=== PATIENT | male | born 1950 | race Caucasian/White ===

== ENCOUNTER 2018-07-30 16:38 | Outpatient (CLI) | payer MEDICARE, OTHER, SELFPAY | END 2018-07-30 16:58 | PROVIDERS: PCP Family Medicine; Visit Provider Urology | DX: R97.20 Elevated prostate specific antigen [PSA] (principal) | CPT/HCPCS: 36415; 84153 ==

== ENCOUNTER → 2018-09-04 10:42 | Outpatient (BNVA) | payer MEDICARE, OTHER, SELFPAY | PROVIDERS: PCP Family Medicine; Visit Provider Urology | DX: R35.0 Frequency of micturition (principal); R97.20 Elevated prostate specific antigen [PSA]; Z87.442 Personal history of urinary calculi | CPT/HCPCS: 99213 ==

== ENCOUNTER → 2018-12-28 07:53 | Outpatient (BNVA) | payer MEDICARE, OTHER, SELFPAY | PROVIDERS: PCP Family Medicine; Visit Provider Urology | DX: R31.29 Other microscopic hematuria (principal); R35.0 Frequency of micturition; Z87.442 Personal history of urinary calculi | CPT/HCPCS: 51798; 81001; 99213 ==

== ENCOUNTER 2019-01-15 13:43 | Outpatient (CLI) | payer MEDICARE, OTHER, SELFPAY ==
[2019-01-15 14:57] LABS: Albumin 3.9 g/dL (3.4-5.0); Anion Gap 9.8 mmol/L (3-11); BUN 18 mg/dL (7-18); CO2 28.2 mmol/L (21.0-32.0); CREATININE 1.05 mg/dL (0.70-1.30); Calcium 9.3 mg/dL (8.5-10.1); Calculated LDL 124 mg/dL; Chloride 104 mmol/L (98-107); Cholesterol 201 mg/dL (50-200); Glucose 107 mg/dL (70-100); HDL Cholesterol 41 mg/dL (40-60); Potassium 4.3 mmol/L (3.5-5.1); Sodium 142 mmol/L (136-145); Triglyceride 183 mg/dL (30-150)
[2019-01-15 17:03] LABS: PHOSPHORUS 3.8 mg/dL (2.6-4.7)
== END 2019-01-15 14:03 ==
PROVIDERS: PCP Family Medicine; Visit Provider Family Medicine
DX: N20.0 Calculus of kidney; E78.5 Hyperlipidemia, unspecified
CPT/HCPCS: 80061; 80069; 83721

== ENCOUNTER 2019-01-21 00:24 | Outpatient (CLI) | payer MEDICARE, OTHER, SELFPAY ==
--- NOTE | 2019-01-21 08:24 | DI.CT_ITS ---
SYMPTOM/DIAGNOSIS; R/O STONES R31.29 HEMATURIA, Z87.442 HX URINARY CALCULI ABDOMINAL AND PELVIC CT: 01/21 CT Urogram protocol January 21 CT examination of the abdomen and pelvis was performed utilizing CT urogram protocol. Noncontrast imaging shows multiple nonobstructing renal calculi, the largest lying in the left collecting system measuring about 9 mm in diameter. There is no hydronephrosis. There is no ureterolithiasis. Venous phase and 7-minute delayed phase imaging were performed and show multiple bilateral non-enhancing low attenuation renal lesions consistent with cysts. Otherwise liver parenchyma is unremarkable. Urinary bladder wall is thickened consistent with chronic bladder outlet obstruction and there is a very large irregularly lobulated prostate. There is marked deformity of the bladder floor from prostate enlargement. Superimposed intraluminal mass not excluded. Liver, spleen and pancreas are unremarkable. Gallbladder and bile ducts are CT normal. Adrenals appear normal. Abdominal aorta and major vascular branches appear intact except for some mural thrombus of the aorta. No abdominal aortic aneurysm. No focal bowel pathology. No evidence of appendicitis or diverticulitis. No abdominal or pelvic adenopathy. No significant abdominal wall hernia seen. CONCLUSION: 1. Multiple nonobstructing renal calculi 2. Multiple renal cysts 3. Marked irregular lobulated prostate enlargement. 4. Bladder wall thickening, presumably secondary to chronic bladder outlet obstruction, intraluminal mass not excluded.
[2019-01-21] MEDS: Omnipaque 350 MG/ML 100 ML BTL IJ (09:09)
== END 2019-01-21 00:44 ==
PROVIDERS: PCP Family Medicine; Visit Provider Urology
DX: R31.29 Other microscopic hematuria (principal); Z87.442 Personal history of urinary calculi; N20.0 Calculus of kidney; N28.1 Cyst of kidney, acquired; N40.1 Benign prostatic hyperplasia with lower urinary tract symptoms; N32.0 Bladder-neck obstruction
CPT/HCPCS: 74178; J3490

== ENCOUNTER → 2019-02-01 13:54 | Outpatient (BNVA) | payer MEDICARE, OTHER, SELFPAY | PROVIDERS: PCP Family Medicine; Visit Provider Urology | DX: N40.1 Benign prostatic hyperplasia with lower urinary tract symptoms (principal); N20.0 Calculus of kidney; R35.1 Nocturia; R19.4 Change in bowel habit | CPT/HCPCS: 99213 ==

== ENCOUNTER → 2019-02-26 11:24 | Outpatient (BNVA) | payer MEDICARE, OTHER, SELFPAY | PROVIDERS: PCP Family Medicine; Visit Provider Urology | DX: N30.10 Interstitial cystitis (chronic) without hematuria (principal); N40.0 Benign prostatic hyperplasia without lower urinary tract symptoms | CPT/HCPCS: 99213 ==

== ENCOUNTER → 2019-04-12 11:18 | Outpatient (BNVA) | payer MEDICARE, OTHER, SELFPAY | PROVIDERS: PCP Family Medicine; Referring Provider Family Medicine; Visit Provider Urology | DX: N40.1 Benign prostatic hyperplasia with lower urinary tract symptoms (principal); N13.8 Other obstructive and reflux uropathy; N30.10 Interstitial cystitis (chronic) without hematuria | CPT/HCPCS: 99213 ==

== ENCOUNTER → 2019-05-08 14:20 | Outpatient (BNVA) | payer MEDICARE, OTHER, SELFPAY | PROVIDERS: PCP Family Medicine; Referring Provider Family Medicine; Visit Provider Nurse Practitioner Gerontology | DX: N40.1 Benign prostatic hyperplasia with lower urinary tract symptoms (principal); N13.8 Other obstructive and reflux uropathy | CPT/HCPCS: 51798; 99213 ==

== ENCOUNTER → 2019-05-10 13:38 | Outpatient (BNVA) | payer MEDICARE, OTHER, SELFPAY | PROVIDERS: PCP Family Medicine; Referring Provider Family Medicine; Visit Provider Urology | DX: N40.1 Benign prostatic hyperplasia with lower urinary tract symptoms (principal) | CPT/HCPCS: 99212 ==

== ENCOUNTER → 2019-06-07 13:49 | Outpatient (BNVA) | payer MEDICARE, OTHER, SELFPAY | PROVIDERS: PCP Family Medicine; Referring Provider Family Medicine; Visit Provider Urology | DX: N30.10 Interstitial cystitis (chronic) without hematuria (principal) | CPT/HCPCS: 99213 ==

== ENCOUNTER → 2019-07-26 10:49 | Outpatient (BNVA) | payer MEDICARE, OTHER, SELFPAY | PROVIDERS: PCP Family Medicine; Referring Provider Family Medicine; Visit Provider Urology | DX: N40.1 Benign prostatic hyperplasia with lower urinary tract symptoms (principal); N13.8 Other obstructive and reflux uropathy; N30.10 Interstitial cystitis (chronic) without hematuria; Z87.19 Personal history of other diseases of the digestive system | CPT/HCPCS: 99213 ==

== ENCOUNTER 2019-08-21 14:37 | Outpatient (CLI) | payer MEDICARE, OTHER, SELFPAY ==
[2019-08-22 14:33] LABS: PSA, Diagnostic 5.3 ng/mL (0.0-4.5)
== END 2019-08-21 14:57 ==
PROVIDERS: PCP Family Medicine; Visit Provider Urology
DX: R97.20 Elevated prostate specific antigen [PSA] (principal)
CPT/HCPCS: 36415; 84153

== ENCOUNTER → 2019-09-03 10:21 | Outpatient (BNVA) | payer MEDICARE, OTHER, SELFPAY | PROVIDERS: PCP Family Medicine; Referring Provider Family Medicine; Visit Provider Urology | DX: N40.1 Benign prostatic hyperplasia with lower urinary tract symptoms (principal); N13.8 Other obstructive and reflux uropathy; Z87.442 Personal history of urinary calculi; K58.1 Irritable bowel syndrome with constipation; R97.20 Elevated prostate specific antigen [PSA] | CPT/HCPCS: 99214 ==

== ENCOUNTER 2019-09-16 09:34 | Outpatient (CLI) | payer MEDICARE, OTHER, SELFPAY ==
--- NOTE | 2019-09-16 09:50 | DI.CT_ITS ---
EXAM: CT ABDOMEN PELVIS WO CLINICAL HISTORY: known stones, right abdominal/flank pain, Z87.442,H/O URINARY CALCULI TECHNIQUE: Noncontrast COMPARISON: CT ABDOMEN PELVIS WO/W from 01/21/2019 FINDINGS: Again noted are multiple calcifications within the renal parenchyma and areas of low density within the kidneys consistent with cysts as was better demonstrated on the previous post-contrast study. A s tone at the lower pole of the left kidney measures 7 millimeters in greatest dimension. No ureteral or bladder calculi are seen. The prostate is again noted to be markedly enlarged, measuring 6 x 5.4 by 6.6 cm. It impresses upon the base of the bladder. There is mild bladder wall thickening. Lung bases are clear. The liver, gallbladder, spleen, pancreas and adrenals are unremarkable. No letty l abnormalities are seen. Degenerative changes are seen in the spine, greatest at L4-5. IMPRESSION: Nonobstructing bilateral renal calculi. Enlarged prostate and mild bladder wall thickening.
== END 2019-09-16 09:54 ==
PROVIDERS: PCP Family Medicine; Visit Provider Urology
DX: R10.31 Right lower quadrant pain (principal); N20.0 Calculus of kidney; N40.1 Benign prostatic hyperplasia with lower urinary tract symptoms; N32.89 Other specified disorders of bladder; N28.1 Cyst of kidney, acquired
CPT/HCPCS: 74176

== ENCOUNTER → 2019-10-29 11:25 | Outpatient (BNVA) | payer MEDICARE, OTHER, SELFPAY | PROVIDERS: PCP Family Medicine; Referring Provider Family Medicine; Visit Provider Urology | DX: N40.1 Benign prostatic hyperplasia with lower urinary tract symptoms (principal); N13.8 Other obstructive and reflux uropathy | CPT/HCPCS: 99213; 99443 ==

== ENCOUNTER → 2020-01-13 15:03 | Outpatient (BNVA) | payer MEDICARE, OTHER, SELFPAY | PROVIDERS: PCP Family Medicine; Referring Provider Family Medicine; Visit Provider Urology | DX: N40.1 Benign prostatic hyperplasia with lower urinary tract symptoms (principal); N13.8 Other obstructive and reflux uropathy | CPT/HCPCS: 99213; 99442 ==

== ENCOUNTER 2020-01-23 01:43 | Outpatient (CLI) | payer MEDICARE, OTHER, SELFPAY ==
[2020-01-23 12:01] LABS: Calculated LDL 151 mg/dL (<100); Cholesterol 221 mg/dL (<200); Glucose 91 mg/dL (74-106); HDL Cholesterol 42 mg/dL (40-60); Triglyceride 143 mg/dL (<150)
== END 2020-01-23 02:03 ==
PROVIDERS: PCP Family Medicine; Visit Provider Family Medicine
DX: E78.5 Hyperlipidemia, unspecified (principal); R73.9 Hyperglycemia, unspecified
CPT/HCPCS: 36415; 80061; 82947

== ENCOUNTER → 2020-02-21 10:10 | Outpatient (BNVA) | payer MEDICARE, OTHER, SELFPAY | PROVIDERS: PCP Family Medicine; Referring Provider Family Medicine; Visit Provider Urology | DX: N40.1 Benign prostatic hyperplasia with lower urinary tract symptoms (principal); N13.8 Other obstructive and reflux uropathy | CPT/HCPCS: 99213; 99442 ==

== ENCOUNTER → 2020-03-27 11:27 | Outpatient (BNVA) | payer MEDICARE, OTHER, SELFPAY | PROVIDERS: PCP Family Medicine; Referring Provider Family Medicine; Visit Provider Urology | DX: N40.1 Benign prostatic hyperplasia with lower urinary tract symptoms (principal); R35.0 Frequency of micturition; R39.11 Hesitancy of micturition; R07.89 Other chest pain; N13.8 Other obstructive and reflux uropathy | CPT/HCPCS: 99212; 99442 ==

== ENCOUNTER → 2020-04-28 10:05 | Outpatient (BNVA) | payer MEDICARE, OTHER, SELFPAY | PROVIDERS: PCP Family Medicine; Referring Provider Family Medicine; Visit Provider Urology | DX: M54.89 Other dorsalgia (principal); N40.1 Benign prostatic hyperplasia with lower urinary tract symptoms; N13.8 Other obstructive and reflux uropathy; R10.10 Upper abdominal pain, unspecified; R07.89 Other chest pain | CPT/HCPCS: 99213; 99443 ==

== ENCOUNTER → 2020-05-22 11:29 | Outpatient (BNVA) | payer MEDICARE, OTHER, SELFPAY | PROVIDERS: PCP Family Medicine; Referring Provider Family Medicine; Visit Provider Urology | DX: N40.1 Benign prostatic hyperplasia with lower urinary tract symptoms (principal); N13.8 Other obstructive and reflux uropathy | CPT/HCPCS: 99214; 99443 ==

== ENCOUNTER → 2020-06-18 13:04 | Outpatient (BNVA) | payer MEDICARE, OTHER, SELFPAY | PROVIDERS: PCP Family Medicine; Referring Provider Family Medicine; Visit Provider Urology | DX: R69 Illness, unspecified (principal) ==

== ENCOUNTER → 2020-06-23 09:32 | Outpatient (BNVA) | payer MEDICARE, OTHER, SELFPAY | PROVIDERS: PCP Family Medicine; Referring Provider Family Medicine; Visit Provider Urology | DX: N40.1 Benign prostatic hyperplasia with lower urinary tract symptoms (principal); N13.8 Other obstructive and reflux uropathy; N30.10 Interstitial cystitis (chronic) without hematuria | CPT/HCPCS: 99213; 99442 ==

== ENCOUNTER → 2020-07-14 15:21 | Outpatient (BNVA) | payer MEDICARE, OTHER, SELFPAY | PROVIDERS: PCP Family Medicine; Referring Provider Family Medicine; Visit Provider Urology | DX: N40.1 Benign prostatic hyperplasia with lower urinary tract symptoms (principal); N13.8 Other obstructive and reflux uropathy; N30.10 Interstitial cystitis (chronic) without hematuria | CPT/HCPCS: 99213; 99442 ==

== ENCOUNTER → 2020-08-18 13:33 | Outpatient (BNVA) | payer MEDICARE, OTHER, SELFPAY | PROVIDERS: PCP Family Medicine; Referring Provider Family Medicine; Visit Provider Urology | DX: N40.1 Benign prostatic hyperplasia with lower urinary tract symptoms (principal); N13.8 Other obstructive and reflux uropathy; N30.10 Interstitial cystitis (chronic) without hematuria | CPT/HCPCS: 99213; 99443 ==

== ENCOUNTER → 2020-09-15 09:38 | Outpatient (BNVA) | payer MEDICARE, OTHER, SELFPAY | PROVIDERS: PCP Family Medicine; Referring Provider Family Medicine; Visit Provider Urology | DX: N40.1 Benign prostatic hyperplasia with lower urinary tract symptoms (principal); N13.8 Other obstructive and reflux uropathy; N30.10 Interstitial cystitis (chronic) without hematuria | CPT/HCPCS: 99213; 99443 ==

== ENCOUNTER → 2020-10-06 08:37 | Outpatient (BNVA) | payer MEDICARE, OTHER, SELFPAY | PROVIDERS: PCP Family Medicine; Referring Provider Family Medicine; Visit Provider Urology | DX: N30.10 Interstitial cystitis (chronic) without hematuria (principal); N40.1 Benign prostatic hyperplasia with lower urinary tract symptoms; N13.8 Other obstructive and reflux uropathy | CPT/HCPCS: 99213; 99443 ==

== ENCOUNTER 2020-11-16 02:35 | Outpatient (CLI) | payer MEDICARE, OTHER, SELFPAY ==
[2020-11-16 11:24] LABS: CREATININE 1.1 mg/dL (0.70-1.30); Calculated LDL 132 mg/dL (<100); Cholesterol 196 mg/dL (<200); HDL Cholesterol 39 mg/dL (40-60); Triglyceride 127 mg/dL (<150)
== END 2020-11-16 02:36 | disposition home or self-care (01) ==
LOC: LBO 02:35
PROVIDERS: PCP Family Medicine; Visit Provider Urology
DX: I10 Essential (primary) hypertension (principal); E78.5 Hyperlipidemia, unspecified; R97.20 Elevated prostate specific antigen [PSA]
CPT/HCPCS: 36415; 80061; 82565; 84153

== ENCOUNTER → 2020-11-27 14:19 | Outpatient (BNVA) | payer MEDICARE, OTHER, SELFPAY | PROVIDERS: PCP Family Medicine; Referring Provider Family Medicine; Visit Provider Urology | DX: N40.1 Benign prostatic hyperplasia with lower urinary tract symptoms (principal); N13.8 Other obstructive and reflux uropathy; R31.29 Other microscopic hematuria; R97.20 Elevated prostate specific antigen [PSA]; J30.2 Other seasonal allergic rhinitis; K90.49 Malabsorption due to intolerance, not elsewhere classified; Z87.442 Personal history of urinary calculi | CPT/HCPCS: 99214; 99215 ==

== ENCOUNTER → 2020-12-03 09:51 | Outpatient (BNVA) | payer MEDICARE, OTHER, SELFPAY | PROVIDERS: PCP Family Medicine; Referring Provider Family Medicine; Visit Provider Nurse Practitioner Gerontology | DX: R31.29 Other microscopic hematuria (principal); N40.1 Benign prostatic hyperplasia with lower urinary tract symptoms; N13.8 Other obstructive and reflux uropathy | CPT/HCPCS: 81003; 99213 ==

== ENCOUNTER → 2020-12-25 11:24 | Outpatient (BNVA) | payer MEDICARE, OTHER, SELFPAY | PROVIDERS: PCP Family Medicine; Referring Provider Family Medicine; Visit Provider Urology | DX: N40.1 Benign prostatic hyperplasia with lower urinary tract symptoms (principal); N13.8 Other obstructive and reflux uropathy; R97.20 Elevated prostate specific antigen [PSA]; R31.29 Other microscopic hematuria | CPT/HCPCS: 99213; 99214 ==

== ENCOUNTER 2021-02-05 02:56 | Outpatient (CLI) | payer MEDICARE, SELFPAY ==
[2021-02-05 10:53] LABS: Source Nasal/Nares
[2021-02-05 15:04] LABS: COVID-19 PCR Negative (Negative)
== END 2021-02-05 02:57 | disposition home or self-care (01) ==
PROVIDERS: PCP Family Medicine; Visit Provider Urology
DX: Z20.822 Contact with and (suspected) exposure to COVID-19 (principal); Z01.818 Encounter for other preprocedural examination; R31.29 Other microscopic hematuria
CPT/HCPCS: 87635; 99212; 99442

== ENCOUNTER 2021-02-08 06:15 | Day surgery (SDC) | payer MEDICARE, SELFPAY ==
[2021-02-08 06:36] VITALS: BP 117/83; PULSE 80; RESP 18; TEMP 36.2; O2SAT 96
--- NOTE | 2021-02-08 06:52 | HPE_ITS ---
Date of service: 02/08/21 Time of Service: 06:52 Assessment and Plan Assessment and plan (1) BPH w urinary obs/LUTS: Status: Acute (2) History of kidney stones: Status: Acute (3) Microscopic hematuria: Status: Acute Assessment and plan: We will move ahead with a cystoscopy and right retrograde pyelogram. We will not plan any prostate or ureteral intervention at this time, but if a small bladder lesion is identified, we can address it at this time. History of Present Illness History of Present Illness Chief Complaint: BPH with LUTS Narrative: This is a 70 year old man who has a history of interstitial cystitis, kidney stones and LUTS. He has had microscopic hematuria on urine dipstick but no persistent hematuria on microscopic examination. He is considering different prostate treatments and presents for cystoscopy. He has a history of kidney stones and has had right sided pain at times. His last CT from @ 1 year ago showed nonobstructing kidney stones. He is agreeable to a retrograde pyelogram to rule out migration of the one of renal stones into the ureter. Review of Systems Narrative: No fevers or chills Sinus drainage and odd sensation left ear No diabetes or thyroid No shortness of breath, cough or hemoptysis No chest pain or palpitations No hepatitis, ulcers, jaundice No seizures, strokes or peripheral neuropathy No bleeding disorders or anemia No gout PFSH Medical History Anxiety disorder contributing to his symptoms BPH w urinary obs/LUTS Constipation Microscopic hematuria Seasonal allergies Family History Mother , 78 Alzheimer disease Depression Hyperlipidemia Neoplasm Stroke Father , 77 Depression Heart disease Stroke Social History (Updated 01/25/21 @ 15:07 by Vicki Martin) Smoking/Tobacco Use Status: Former Tobacco Use Quit Date: 07/17/79 Smoking risk assessment performed?: Yes Alcohol Intake: former Drug use: Never Substance use type: does not use Details: 18 years sobriety Caregiver/Support person: No Household members: none Housing: house Communication Needs: None Do you need help understanding health information?: Often Pets and animals: Yes Pets and animals: cat(s) Sexually active: No Do you think of yourself as: straight/heterosexual Current gender identity: male What is your relationship status?: never How often do you talk on the phone with friends or family?: once per week Do you belong to any clubs or organized social groups?: no Panel score (0-1 are the most socially isolated patients): 0 What type of physical activity do you participate in: walking Duration: 15-30 minutes/day Frequency: 1-2 times per week [employer]: [employer] Seatbelt use: always 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 Do you feel safe at home: Yes Do you feel safe in your relationship?: Yes Meds Allergies and Home Medications Allergies Allergy/AdvReac Type Severity Reaction Status Date / Time tamsulosin AdvReac Intermediate low blood Verified 02/08/21 06:22 pressure trazodone AdvReac Intermediate Aggitation, Verified 02/08/21 06:22 Headache Home Medications Medication Instructions Recorded Confirmed Type polyethylene glycol 3350 17 17 gm PO DAILY PRN 11/20/20 02/08/21 History gram/dose oral powder finasteride 5 mg tablet 5 mg PO DAILY #90 tab 12/25/20 02/08/21 Rx Exam Const General: cooperative, comfortable and anxious Neck Neck: supple Resp Effort & Inspection: normal respiratory effort Auscultation: clear to auscultation bilaterally Cardio Rate: regular rate Rhythm: regular rhythm GI Palpation: soft and no masses Neuro General: patient alert, patient awake and patient oriented x3 Results Last Vital Signs Temp 36.2 C L 02/08/21 06:36 Pulse 80 02/08/21 06:36 Resp 18 02/08/21 06:36 BP 117/83 02/08/21 06:36 Pulse Ox 96 02/08/21 06:36
--- NOTE | 2021-02-08 06:59 | W.ANESPRE ---
General Info Date of Service Date Performed: 02/08/21 Height: 5 ft 7 in Weight: 67.8 kg Body Mass Index (BMI): 23.3 Surgical Procedure: Operation Date: 02/08/21 07:40 Proposed Procedures Side Surgeon p CYSTO, POSSIBLE TURBT Farooq Gonzales MD s Cystoscopy/Retrograde Right Farooq Gonzales MD Meds Allergies and Home Medications Allergies Allergy/AdvReac Type Severity Reaction Status Date / Time tamsulosin AdvReac Intermediate low blood Verified 02/08/21 06:22 pressure trazodone AdvReac Intermediate Aggitation, Verified 02/08/21 06:22 Headache Home Medication Medication Instructions Recorded polyethylene glycol 3350 17 17 gm PO DAILY PRN 11/20/20 gram/dose oral powder finasteride 5 mg tablet 5 mg PO DAILY #90 tab 12/25/20 Current Visit Medications: Current Medications Generic Name Dose Route Start Last Admin Trade Name Freq PRN Reason Stop Dose Admin Ringer's Solution 1,000 mls @ 80 mls/hr 02/08/21 06:00 IV 03/07/21 23:59 INFUSION JERRY Cefazolin Sodium/Dextrose 1 gm in 50 mls @ 100 mls/hr 02/08/21 06:00 Ancef Duplex IVPB 02/08/21 16:00 PREOP JERRY IV Miscellaneous Supplies 1 each 02/08/21 06:00 Iv Access IV 03/07/21 23:59 DIRECTED JERRY Sodium Chloride 0 ml 02/08/21 06:00 Normal Saline Flush 10 Ml Syr IV 03/07/21 23:59 PRN PRN Sodium Chloride 0 ml 02/08/21 06:00 Normal Saline 10 Ml Vial IJ 03/07/21 23:59 DIRECTED PRN Sterile Water 0 ml 02/08/21 06:00 Water,Injection,Sterile 10 Ml Vial IJ 03/07/21 23:59 DIRECTED PRN PFSH Active Problems Active Problems: Problem Status Onset Code Post-nasal drip R09.82 Chronic rhinitis J31.0 Seasonal allergies J30.2 Microscopic hematuria R31.29 Food intolerance in adult K90.49 Constipation K59.00 Chest pain R07.9 BPH w urinary obs/LUTS N40.1, N13.8 Interscapular pain M54.89 Anxiety disorder F41.9 Paranoid ideation 06/02/16 F22 Irritable colon K58.9 Irritable bowel syndrome with constipation K58.1 Insomnia, unspecified 05/19/16 G47.00 History of tobacco use Z87.891 History of simple renal cyst 12/25/15 Z87.448 History of kidney stones 12/25/15 Z87.442 History of alcoholism F10.21 Fatigue R53.83 Esophageal reflux K21.9 Elevated PSA 07/26/16 R97.20 Depression F32.9 Chronic interstitial cystitis 12/25/15 N30.10 Chronic ankle pain, bilateral 01/06/17 M25.571, M25.572, G89.29 BPH without urinary obstruction N40.0 Anxiety associated with depression 05/12/16 F41.8 Abdominal discomfort, generalized 11/24/15 R10.84 Medical History Medical History Anxiety disorder contributing to his symptoms BPH w urinary obs/LUTS Constipation Microscopic hematuria Seasonal allergies Tobacco Smoking/Tobacco Use Status: Former Tobacco Use Passive smoking exposure: Yes Alcohol Alcohol Intake: former Substance Use Substance use: Never Substance use type: does not use Details: 18 years sobriety Vital Signs and Lab Results Vital Signs Most Recent Vital Signs in EMR: Most Recent Vital Signs Temp Pulse Resp BP Pulse Ox 36.2 C L 80 18 117/83 96 02/08/21 06:36 02/08/21 06:36 02/08/21 06:36 02/08/21 06:36 02/08/21 06:36 Lab Results Blood Type / Crossmatch: No Data to Display Complete Blood Count: No Data to Display Complete Metabolic Panel: No Data to Display Liver Function Panel: No Data to Display Coagulation Panel: No Data to Display Cardiac Panel: No Data to Display Arterial Blood Gas: No Data to Display Venous Blood Gas: No Data to Display Pancreas Panel: No Data to Display Thyroid Panel: No Data to Display Infectious Disease: Coronavirus (COVID-19)(PCR) Negative (Negative) 02/05/21 08:30 02/05/21 Coronavirus 2019 Source Nasal/Nares 02/05/21 08:30 02/05/21 Blood Cultures: No Data to Display Toxicology Panel: No Data to Display Anesthesia Assessment and Plan Anesthesia History Personal History: No History of Anesthesia Complications Family History: No Family History of Anesthesia Complications Exercise Tolerance Exercise Tolerance: Metabolic Equivalents>4 Cardiac & Pulmonary Exam Cardiac Exam: Normal S1/S2 Heart Sounds Pulmonary Exam: Clear Bilateral Breath Sounds Airway Exam Known Difficult Airway: No Mallampati Class: 3 Mouth Opening: Narrow (< 3cm) Thyromental Distance: Greater than 3 cm Neck Range of Motion: Limited ROM Neck Circumference: Normal Teeth Condition: Normal Dentition ASA Classification ASA Score: ASA 2 Emergency Case?: No NPO Status NPO Status: NPO Clears >2 hours, Solids >8 hours Anesthesia Plan Resuscitation Status: Full Code Anesthesia Technique: MAC Anesthesia Airway Planned: Natural Airway Monitors Used: Standard Monitors
[2021-02-08] MEDS: Lactated Ringers 1,000 ML 80 ML IV (07:00)
[2021-02-08 07:12] VITALS: BMI 23.3
[2021-02-08] MEDS: ceFAZolin 1 GM/50 ML BAG IVPB (07:37)
[2021-02-08] MEDS: Lidocaine 2% Jelly 6 ML SYR (07:58)
[2021-02-08] MEDS: Omnipaque 300 MG/ML 50 ML BTL (07:58)
--- NOTE | 2021-02-08 08:06 | DI.RAD_ITS ---
Exam(s) XR RETROGRADE IN OR EXAM: XR RETROGRADE IN OR CLINICAL HISTORY: URINARY OBSTRUCTION/BPH, MICROSCOPIC HEMATURIA. TECHNIQUE: 2D digital imaging was performed. COMPARISON: No exams were available for comparison FINDINGS: Approximate by during urology procedure. See report procedure for details. No submitted images. Total fluoroscopy time 17.5 seconds Cumulative does 2.42mGy IMPRESSION: DATA REPOSITORY: RADIATION DOSE DELIVERED:
--- NOTE | 2021-02-08 08:06 | W.PM.DSUDISC ---
Discharge Plan Disposition Patient Disposition: HOME Condition: Stable Discharge Details Reason For Visit: cystoscopy Attending Provider: Farooq Gonzales Primary Care Provider: Bryson Alba Home Meds and New Rx's Prescriptions: No Action polyethylene glycol 3350 [Miralax] 17 gram/dose powder 17 gm PO DAILY PRNRF: 0 finasteride 5 mg tablet 5 mg PO DAILY Qty: 90 RF: 3 Discharge Instructions Additional Instructions: Followup with me 2 to 4 weeks - telehealth or in person Activity:: Activity as Tolerated Shower/Bathe:: 24 hours Diet:: As Tolerated Discharge Orders Discharge Orders: Discharge Order (Routine); Ordered 02/08/21 Ordered By: Farooq Gonzales DS: Diagnosis Discharge Diagnosis (1) BPH w urinary obs/LUTS: Status: Acute (2) History of kidney stones: Status: Acute (3) Microscopic hematuria: Status: Acute
--- NOTE | 2021-02-08 08:11 | W.PM.OP ---
Date of service: 02/08/21 Time of Service: 08:11 Operative Note Operative Note DATE OF PROCEDURE: 02/08/21 PRE-OP DIAGNOSIS: BPH with LUTS Microscopic hematuria Kidney stones POST-OP DIAGNOSIS: same PROCEDURE: Cystoscopy with right retrograde pyelogram SURGEON: Farooq Gonzales ANESTHESIA TYPE: Local By Surgeon and General:No Airway Refer to Anesthesia Record ESTIMATED BLOOD LOSS: 5 PATHOLOGY: none sent COMPLICATIONS: None Patient was transported to: same day Patient's condition: stable Indications: A 70-year-old gentleman who has a long history of lower urinary tract symptoms. Previously, he had been diagnosed with interstitial cystitis. Over the years, he has had intermittent voiding symptoms. He has been unable to tolerate alpha blockers. He is currently on a 5 alpha reductase inhibitor. At times, he has had microscopic hematuria found on urine studies. He has a history of nonobstructing kidney stones. His last CT scan is from 2019. He presents now for cystoscopy to evaluate his lower urinary tract. Since he has been having some right sided pain when he voids, he is agreeable to a right retrograde pyelogram. Findings: trilobar hypertropy of prostate with left lobe larger than right small stone in bladder normal right retrograde pyelogram Procedure Description: The patient is brought to the operating room on 02/08/2021. After successful induction all anesthesia without intubation, he was placed in the dorsal lithotomy position. He was given a dose of preoperative IV antibiotics. His genitalia and perineum were prepped and draped sterilely. 2% Xylocaine jelly was instilled into the urethra to act as a local anesthetic. A 22 Estonian rigid cystoscope was passed through the urethra into the bladder. The urethra and bladder were inspected with a 30 degree lens. The pendulous, bulbar and membranous urethra was all appeared normal with no strictures. The prostatic urethra showed trilobar hypertrophy. The lateral lobes were enlarged with the left side being larger than the right. There was also a median lobe jetting back into the bladder. The bladder neck was entered and the bladder mucosa was inspected. A small stone was seen floating within the bladder. This was irrigated free. The right ureteral orifice erythematous mucosa surrounding it. The orifice appeared normal in location. The left orifice appeared normal with no erythematous mucosa. The right ureteral orifice was cannulated with a 6 Estonian access catheter. Retrograde film was obtained by injecting Omnipaque through the access catheter under fluoroscopic guidance. The ureter appeared normal as did the collecting system. The right side drained promptly on a 5-minute drainage film. The bladder was emptied and the cystoscope was withdrawn. The patient tolerated this procedure well with no complications. I am not sure how many of his symptoms might have been caused by the small stone that we identified. We will check in with the patient in 2 to 4 weeks for a symptom check. If he does require any type of prostate surgical procedure, we would need to take into consideration the presence of his median lobe.
[2021-02-08 08:24] VITALS: BP 111/75; PULSE 63; RESP 19; TEMP 36.3; O2SAT 97
--- NOTE | 2021-02-08 08:47 | W.ANESPOSTOP ---
Postoperative Evaluation Date, Time and Location Date Performed: 02/08/21 Time Performed: 08:47 Patient Location: Day Surgery Unit Vital Signs Most Recent Imported Vital Signs: Most Recent Vital Signs Temp Pulse Resp BP Pulse Ox 36.3 C L 63 19 111/75 97 02/08/21 08:24 02/08/21 08:24 02/08/21 08:24 02/08/21 08:24 02/08/21 08:24 Pain Score Most Recent Pain Score: Most Recent Pain Score Pain Level 0 02/08/21 08:24 Assessment Mental Status: Awake (Alert & Oriented to Patient Baseline) Airway and Respiratory Function: Patent airway with normal (patient baseline) respiratory exam Cardiovascular Function: Hemodynamically Stable Hydration Status: Adequately Hydrated Nausea & Vomiting: No Nausea or Vomiting Pain: Pt. Denies Any Pain Peripheral Nerve Block: Patient did not receive a nerve block
[2021-02-08 08:54] VITALS: BP 119/73; PULSE 60; RESP 18; TEMP 36.8; O2SAT 99
== END 2021-02-08 09:20 | disposition home or self-care (01) ==
PROVIDERS: PCP Family Medicine; Visit Provider Urology
PROC: (CPT 74450; 2021-02-08 07:30)
DX: N40.1 Benign prostatic hyperplasia with lower urinary tract symptoms (principal); N13.8 Other obstructive and reflux uropathy; N21.0 Calculus in bladder; R31.29 Other microscopic hematuria; Z87.442 Personal history of urinary calculi
CPT/HCPCS: 52005; 74420; J0690; J2250; Q9967

== ENCOUNTER → 2021-03-09 14:51 | Outpatient (BNVA) | payer MEDICARE, SELFPAY | PROVIDERS: PCP Family Medicine; Referring Provider Family Medicine; Visit Provider Urology | DX: N40.1 Benign prostatic hyperplasia with lower urinary tract symptoms (principal); N13.8 Other obstructive and reflux uropathy; N21.0 Calculus in bladder | CPT/HCPCS: 81003; 99214 ==

== ENCOUNTER → 2021-03-19 08:52 | Outpatient (BNVA) | payer MEDICARE, SELFPAY | PROVIDERS: PCP Family Medicine; Referring Provider Family Medicine; Visit Provider Urology | DX: N40.1 Benign prostatic hyperplasia with lower urinary tract symptoms (principal); N13.8 Other obstructive and reflux uropathy; Z98.890 Other specified postprocedural states | CPT/HCPCS: 99443 ==

== ENCOUNTER → 2021-05-04 13:49 | Outpatient (BNVA) | payer MEDICARE, SELFPAY | PROVIDERS: PCP Family Medicine; Referring Provider Family Medicine; Visit Provider Urology | DX: N40.1 Benign prostatic hyperplasia with lower urinary tract symptoms (principal); N13.8 Other obstructive and reflux uropathy | CPT/HCPCS: 99213 ==

== ENCOUNTER → 2021-06-25 08:20 | Outpatient (BNVA) | payer MEDICARE, SELFPAY | PROVIDERS: PCP Family Medicine; Referring Provider Family Medicine; Visit Provider Urology | DX: N40.1 Benign prostatic hyperplasia with lower urinary tract symptoms (principal); N13.8 Other obstructive and reflux uropathy; N20.0 Calculus of kidney | CPT/HCPCS: 99213 ==

== ENCOUNTER 2021-09-01 01:43 | Outpatient (CLI) | payer MEDICARE, SELFPAY ==
--- NOTE | 2021-09-01 07:15 | DI.US_ITS ---
Exam(s) US RENAL EXAM: US RENAL CLINICAL HISTORY: r/o hydronephrosis,kidney stones,n20.0. TECHNIQUE: Guajardo scale, color and spectral Doppler were used. COMPARISON: US RENAL ULTRASOUND(P) from 12/28/[address] ABD/PELVIS W CONTRAST from 09/27/2019 FINDINGS: Renal size in cm: Right: 10.4. Left: 12.9. Echogenicity: Normal. Hydronephrosis: No. Cyst or mass: There are bilateral renal cysts. These are present on the CT scan from 09/27/2019. Nephrolithiasis: Echogenic foci are seen bilaterally in the kidneys. The largest is in the midpole o f the left kidney measures 5 mm. Other findings: None. Bladder:Normal. Ureteral jets: Right: Visualized and unremarkable. Left: Visualized and unremarkable. Prevoid vol:70 cc Postvoid vol:15 cc Prostate: 64 cc Renal color flow: Symmetric and within normal limits. IMPRESSION: 1. Bilateral nephrolithiasis. No hydronephrosis. 2. Prostatic hypertrophy. DATA REPOSITORY:
== END 2021-09-01 02:03 ==
PROVIDERS: PCP Family Medicine; Visit Provider Urology
DX: N20.0 Calculus of kidney (principal); N40.0 Benign prostatic hyperplasia without lower urinary tract symptoms
CPT/HCPCS: 76770

== ENCOUNTER 2021-09-01 15:26 | Outpatient (CLI) | payer MEDICARE, SELFPAY ==
[2021-09-03 15:41] LABS: Tissue Transglutaminase Ab IgA <1.2 U/mL
== END 2021-09-01 15:27 | disposition home or self-care (01) ==
LOC: LBO 15:27
PROVIDERS: PCP Family Medicine; Visit Provider Family Medicine
DX: K90.49 Malabsorption due to intolerance, not elsewhere classified (principal)
CPT/HCPCS: 36415; 76770; 83516

== ENCOUNTER → 2021-09-03 10:23 | Outpatient (BNVA) | payer MEDICARE, SELFPAY | PROVIDERS: PCP Family Medicine; Referring Provider Family Medicine; Visit Provider Urology | DX: N40.1 Benign prostatic hyperplasia with lower urinary tract symptoms (principal); N13.8 Other obstructive and reflux uropathy; R35.0 Frequency of micturition; R35.1 Nocturia | CPT/HCPCS: 99214 ==

== ENCOUNTER → 2021-11-02 15:19 | Outpatient (BNVA) | payer MEDICARE, SELFPAY | PROVIDERS: PCP Family Medicine; Referring Provider Family Medicine; Visit Provider Urology | DX: N40.1 Benign prostatic hyperplasia with lower urinary tract symptoms (principal); R35.1 Nocturia; N13.8 Other obstructive and reflux uropathy; N30.10 Interstitial cystitis (chronic) without hematuria | CPT/HCPCS: 99215 ==

== ENCOUNTER → 2022-01-04 08:23 | Outpatient (BNVA) | payer MEDICARE, SELFPAY | PROVIDERS: PCP Family Medicine; Referring Provider Family Medicine; Visit Provider Urology | DX: N40.1 Benign prostatic hyperplasia with lower urinary tract symptoms (principal); N13.8 Other obstructive and reflux uropathy | CPT/HCPCS: 99214 ==

== ENCOUNTER 2022-01-20 04:15 | Outpatient (CLI) | payer MEDICARE, SELFPAY ==
[2022-01-20 11:03] LABS: Calculated LDL 157 mg/dL (<100); Cholesterol 226 mg/dL (<200); Glucose 96 mg/dL (74-106); HDL Cholesterol 47 mg/dL (40-60); Triglyceride 112 mg/dL (<150)
== END 2022-01-20 04:16 | disposition home or self-care (01) ==
LOC: LBO 04:16
PROVIDERS: PCP Family Medicine; Visit Provider Family Medicine
DX: E78.5 Hyperlipidemia, unspecified (principal); R73.9 Hyperglycemia, unspecified
CPT/HCPCS: 36415; 80061; 82947

== ENCOUNTER → 2022-03-18 10:23 | Outpatient (BNVA) | payer MEDICARE, SELFPAY | PROVIDERS: PCP Family Medicine; Referring Provider Family Medicine; Visit Provider Urology | DX: N40.1 Benign prostatic hyperplasia with lower urinary tract symptoms (principal); R97.20 Elevated prostate specific antigen [PSA] | CPT/HCPCS: 99214 ==

== ENCOUNTER 2022-05-13 01:43 | Outpatient (CLI) | payer MEDICARE, SELFPAY ==
--- NOTE | 2022-05-13 08:08 | DI.RAD_ITS ---
Exam(s) XR WRIST LT COMPLETE EXAM: XR WRIST LT COMPLETE CLINICAL HISTORY: left wrist pain,S63.502A. TECHNIQUE: 2D digital imaging was performed of the left wrist. Three images were obtained. PA, obl ique and lateral views were obtained. COMPARISON: No exams were available for comparison FINDINGS: BONES: No acute fracture is present. No bony destructive lesion is seen. There is a depression in the lateral view the posterior radius. There is no associated soft tissue swelling. This is likely of no clinical significance. Please correlate clinically. JOINTS: The carpal bones are normally aligned. SOFT TISSUE: Normal. IMPRESSION: No acute abnormality. DATA REPOSITORY: RADIATION DOSE DELIVERED:
[2022-05-13 19:51] LABS: PSA, Diagnostic 5.3 ng/mL (<=6.5)
== END 2022-05-13 01:44 | disposition home or self-care (01) ==
LOC: LBO 01:44
PROVIDERS: PCP Family Medicine; Visit Provider Urology
DX: S63.502D Unspecified sprain of left wrist, subsequent encounter (principal); R97.20 Elevated prostate specific antigen [PSA]; X58.XXXD Exposure to other specified factors, subsequent encounter
CPT/HCPCS: 36415; 73110; 84153

== ENCOUNTER → 2022-05-23 13:21 | Outpatient (BNVA) | payer MEDICARE, SELFPAY | PROVIDERS: PCP Family Medicine; Referring Provider Family Medicine; Visit Provider Urology | DX: N40.1 Benign prostatic hyperplasia with lower urinary tract symptoms (principal); N13.8 Other obstructive and reflux uropathy; R97.20 Elevated prostate specific antigen [PSA] | CPT/HCPCS: 99213 ==

== ENCOUNTER → 2022-08-08 12:55 | Outpatient (BNVA) | payer MEDICARE, SELFPAY | PROVIDERS: PCP Family Medicine; Referring Provider Family Medicine; Visit Provider Student in an Organized Health Care Education/Training Program | DX: S63.592A Other specified sprain of left wrist, initial encounter (principal); X50.0XXA Overexertion from strenuous movement or load, initial encounter | CPT/HCPCS: 99214 ==

== ENCOUNTER → 2022-09-09 10:23 | Outpatient (BNVA) | payer MEDICARE, SELFPAY | PROVIDERS: PCP Family Medicine; Referring Provider Family Medicine; Visit Provider Urology | DX: N40.1 Benign prostatic hyperplasia with lower urinary tract symptoms (principal); N13.8 Other obstructive and reflux uropathy; R97.20 Elevated prostate specific antigen [PSA] | CPT/HCPCS: 99214 ==

== ENCOUNTER 2022-09-13 02:26 | Outpatient (CLI) | payer MEDICARE, SELFPAY ==
[2022-09-13 15:35] LABS: CREATININE 1.1 mg/dL (0.70-1.30); Estimated GFR 71.77 (mL/min/1.73m2)
== END 2022-09-13 02:27 | disposition home or self-care (01) ==
LOC: LBO 02:26
PROVIDERS: PCP Family Medicine; Visit Provider Urology
DX: N13.8 Other obstructive and reflux uropathy (principal); N40.1 Benign prostatic hyperplasia with lower urinary tract symptoms
CPT/HCPCS: 36415; 82565

== ENCOUNTER → 2022-10-17 09:21 | Outpatient (BNVA) | payer MEDICARE, SELFPAY | PROVIDERS: PCP Family Medicine; Referring Provider Family Medicine; Visit Provider Urology | DX: R97.20 Elevated prostate specific antigen [PSA] (principal); R39.89 Other symptoms and signs involving the genitourinary system | CPT/HCPCS: 99214 ==

== ENCOUNTER → 2022-10-27 14:20 | Outpatient (BNVA) | payer MEDICARE, SELFPAY | PROVIDERS: PCP Family Medicine; Referring Provider Family Medicine; Visit Provider Urology | DX: C61 Malignant neoplasm of prostate (principal) | CPT/HCPCS: 55700; 76872; 81003 ==

== ENCOUNTER 2022-10-27 15:54 | Outpatient (REF) | payer MEDICARE, SELFPAY ==
--- NOTE | 2022-10-27 15:15 | PROST_PTH ---
PATIENT: Dylan Gilmore LOC: N U#:[id number] AGE/SX: 72/M ROOM: RE10/27/[address]: Farooq Gonzales MD : [id number] BED: DIS: 10/27/2022 SPEC #: [id number] RECD: 10/27/22 17:53 STATUS: ELVIA RE #: [id number] URIEL: 10/27/22 15:[address]: Farooq Gonzales DEPT: Surgical Specimen RECD BY: Stefany Pimentel ENTERED: 10/27/22 17:55 SP TYPE: PROST OTHR DR: Bryson Alba MD Tissues: 1 - PROSTATE NEEDLE BIOPSY 2 - PROSTATE NEEDLE BIOPSY 3 - PROSTATE NEEDLE BIOPSY 4 - PROSTATE NEEDLE BIOPSY 5 - PROSTATE NEEDLE BIOPSY 6 - PROSTATE NEEDLE BIOPSY 7 - PROSTATE NEEDLE BIOPSY 8 - PROSTATE NEEDLE BIOPSY 9 - PROSTATE NEEDLE BIOPSY 10 - PROSTATE NEEDLE BIOPSY 11 - PROSTATE NEEDLE BIOPSY 12 - PROSTATE NEEDLE BIOPSY Procedures: GROSS AND MICRO LEVEL 4 Comments: [id number]
== END 2022-10-27 15:55 | disposition home or self-care (01) ==
LOC: LBN 15:54
PROVIDERS: PCP Family Medicine; Visit Provider Urology
DX: C61 Malignant neoplasm of prostate (principal); N42.89 Other specified disorders of prostate
CPT/HCPCS: 88305

== ENCOUNTER → 2022-11-10 10:54 | Outpatient (BNVA) | payer MEDICARE, SELFPAY | PROVIDERS: PCP Family Medicine; Referring Provider Family Medicine; Visit Provider Urology | DX: C61 Malignant neoplasm of prostate (principal) | CPT/HCPCS: 99214 ==

== ENCOUNTER → 2022-11-24 14:50 | Outpatient (BNVA) | payer MEDICARE, SELFPAY | PROVIDERS: PCP Family Medicine; Referring Provider Family Medicine; Visit Provider Urology | DX: C61 Malignant neoplasm of prostate (principal) | CPT/HCPCS: 99215 ==

== ENCOUNTER 2022-11-24 16:02 | Outpatient (REF) | payer MEDICARE, SELFPAY ==
[2022-11-24 16:44] LABS: Abs Immature Grans 0.02 10^3/uL (0.0-0.06); Absolute Basophil Count 0.04 10^3/uL (0.0-0.2); Absolute Eosinophil Count 0.14 10^3/uL (0.0-0.7); Absolute Lymphocyte Count 2.35 10^3/uL (1.2-3.4); Absolute Monocyte Count 0.63 10^3/uL (0.1-0.8); Absolute Neutrophil Count 3.65 10^3/uL (1.2-6.7); Basophils % 0.6; HCT 39.4 % (40.0-50.0); HGB 13.5 g/dL (13.5-17.5); Immature Grans % 0.3; Lymphocytes % 34.4; MCH 32.4 pg (27.0-33.0); MCHC 34.3 % (32.0-36.0); MCV 95 fL (80-95); MPV 9.6 fL (8.0-11.0); Monocytes % 9.2; Neutrophils % 53.5; Platelet Count 249 10^3/uL (130-400); RBC 4.17 10^6/uL (4.36-5.78); RDW 11.9 % (11.8-14.1); RDW-SD 41.2 fL; WBC 6.83 10^3/uL (4.4-10.8)
[2022-11-24 17:22] LABS: ALT 31 U/L (16-63); AST 16 U/L (15-37); Albumin 3.7 g/dL (3.4-5.0); Alkaline Phosphatase 63 U/L (46-116); Anion Gap 6.3 mmol/L (3-11); BUN 23 mg/dL (7-18); Bilirubin, Total 0.4 mg/dL (0.2-1.0); CO2 27.7 mmol/L (21.0-32.0); CREATININE 1.2 mg/dL (0.70-1.30); Calcium 9.3 mg/dL (8.5-10.1); Chloride 106 mmol/L (98-107); Estimated GFR 64.25 (mL/min/1.73m2); Glucose 113 mg/dL (74-106); Potassium 4.1 mmol/L (3.5-5.1); Sodium 140 mmol/L (136-145); TSH (W/Ref FT4) 1.01 uIU/mL (0.36-3.74); Total Protein 7.5 g/dL (6.4-8.2)
[2022-11-30 01:41] LABS: Testosterone, Total 436 ng/dL (240-950)
== END 2022-11-24 16:03 | disposition home or self-care (01) ==
LOC: LBN 16:02
PROVIDERS: PCP Family Medicine; Visit Provider Urology
DX: C61 Malignant neoplasm of prostate (principal); R10.84 Generalized abdominal pain; G47.00 Insomnia, unspecified; F41.8 Other specified anxiety disorders; R53.83 Other fatigue
CPT/HCPCS: 80053; 84403; 84443; 85025

== ENCOUNTER 2022-12-09 00:02 | Outpatient (CLI) | payer MEDICARE, SELFPAY ==
--- NOTE | 2022-12-09 07:15 | DI.NM_ITS ---
Exam(s) NM BONE SCAN WHOLE BODY GRP EXAM: [place] BONE SCAN WHOLE BODY GRP CLINICAL HISTORY: baseline study,prostate cancer,C61. TECHNIQUE: Injected Dose: 25 mCi Tc-99m MDP Delayed Images: 2-3 hours. COMPARISON: Abdominal-pelvic CT scan reviewed bone windows. FINDINGS: There is focal radiopharmaceutical uptake seen the lower lumbar spine on right side of L4-5 level, th is corresponding to the degenerative change at this level where there is asymmetric right-sided disc space narrowing and osteophytes at this level. Higher up there is a focus of radiopharmaceutical accumulation in approximately the T7 level question able significance. The abdominal-pelvic CT scan does not reach this level for correlated purposes. There is no other abnormal uptake seen in the skeleton. No abnormal rib uptake. No abnormal skull u ptake. No abnormal long bone uptake. IMPRESSION: 1. Degenerative uptake in the right side of L4-5 level lumbar spine. 2. Mid upper thoracic spine uptake at around T7 level. Recommend further imaging at this level for correlated purposes. 3. There are no other foci of abnormal uptake in the skeleton. DATA REPOSITORY:
[2022-12-09] MEDS: Barium Sulfate 2% W/V-Berry Smoothie 450 ML BTL PO ×2 (10:14)
--- NOTE | 2022-12-09 11:00 | DI.CT_ITS ---
Exam(s) CT ABDOMEN PELVIS W EXAM: CT ABDOMEN PELVIS W CLINICAL HISTORY: new diagnosis prostate cancer,C61. TECHNIQUE: Imaging Protocol: Axial computed tomography images with coronal and sagittal reformatted images were created and reviewed CONTRAST MATERIAL: Intravenous: Omnipaque-350 100cc Oral: Yes. Oral contrast was also administered for bowel opacification. COMPARISON: CT CT ABD/PELVIS W CONTRAST from 09/27/2019 FINDINGS: VISUALIZED LUNG BASES: No nodules nor pleural effusions evident. ABDOMEN: There is no ascites. LIVER: There are no focal hepatic lesions evident. No dilated intrahepatic ducts. GALLBLADDER/BILIARY: No obvious gallbladder pathology. CBD is not dilated. PANCREAS: No evidence of pancreatic mass nor dilatation of the pancreatic duct. SPLEEN: Spleen is not enlarged. Small meningioma noted in the medial aspect the spleen measuring 9 x 8 mm. Was previously present 09/27/[address] scan ADRENALS: There are no significant adrenal masses. KIDNEYS:There is small cortical cysts in both kidneys. Largest is in the lateral left kidney and tyron sures 1.6 x 1.5 cm, unchanged. There is a calculus in lower pole of the left kidney again noted bola uring 5 mm.. ABDOMINAL AORTA: Atherosclerotic. There is a fusiform infrarenal abdominal aortic aneurysm which exh ibits maximum diameter of 2.8 cm. No aneurysms of the iliac arteries. LYMPH NODES:There is no retroperitoneal nor paraaortic adenopathy. ABDOMINAL WALL: No evidence of significant anterior abdominal wall nor inguinal hernia. GI: There is no evidence of bowel obstruction, free air, nor abscess. PELVIS: GI: No evidence of appendicitis.No evidence of sigmoid diverticulitis. LYMPH NODES: There is no intrapelvic nor inguinal adenopathy. REPRODUCTIVE: Enlarged prostate gland which measures 6 cm wide by 5.6 cm AP by 5.5 cm cephalocaudal. And is lobulated and indents the bladder. URINARY BLADDER: Bladder wall is moderately thickened uniform fashion but not distended and there are no diverticuli in the bladder.. No radiopaque calculi seen in the bladder lumen. OSSEOUS: No fractures. No blastic nor lytic lesions identified. IMPRESSION: 1. Enlarged lobulated prostate gland which indents the bladder base. Bladder wall is uniformly thick ened. No over distension of bladder no obvious focal bladder mass nor calculi in the urinary bladder lumen. 2. No evidence of obturator nor other intrapelvic nor periaortic adenopathy. 3. No osseous lesions identified. 4. Atherosclerotic abdominal aorta and abdominal aortic aneurysm in the lower abdominal aorta which e xhibits a maximum diameter of 2.8 cm. Arterial megaly does not extend into the common iliac arteries . RADIATION DOSE DELIVERED: 1,038.67mGy.cm Total DLP DATA REPOSITORY: All CT scans at this facility are submitted to the National Radiology Data Registry (NRDR) Dose Index Registry (DIR) with the [employer] (ACR). RADIATION OPTIMIZATION: All CT scans at this facility use at least one of these dose optimization te chniques: automated exposure control; mA and/or kV adjustment per patient size (includes targeted exa ms where dose is matched to clinical indication); or iterative reconstruction.
[2022-12-09] MEDS: Omnipaque 350 MG/ML 500 ML BTL-Imaging package 100 ML IJ (11:03)
[2022-12-09] MEDS: Normal Saline Flush 10 ML SYR IJ (11:05)
== END 2022-12-09 00:22 ==
LOC: DI 00:07
PROVIDERS: PCP Family Medicine; Visit Provider Urology
DX: C61 Malignant neoplasm of prostate (principal); I70.0 Atherosclerosis of aorta
CPT/HCPCS: 78306; 74177

== ENCOUNTER → 2022-12-13 14:51 | Outpatient (BNVA) | payer MEDICARE, SELFPAY | PROVIDERS: PCP Family Medicine; Referring Provider Family Medicine; Visit Provider Urology | DX: C61 Malignant neoplasm of prostate (principal) | CPT/HCPCS: 99214 ==

== ENCOUNTER 2023-01-10 00:49 | Outpatient (CLI) | payer MEDICARE, SELFPAY ==
--- NOTE | 2023-01-10 10:45 | DI.CT_ITS ---
Exam(s) CT THORACIC SPINE WO EXAM: CT THORACIC SPINE WO CLINICAL HISTORY: MALIGNANT NEOPLASM OF PROSTATE, C61; POSSIBLE T7 METS, ? METS VS DJD/OA. TECHNIQUE: Imaging Protocol: Axial computed tomography images with coronal and sagittal reformatted images were created and reviewed. CONTRAST MATERIAL: Intravenous: Omnipaque 350 Contrast volume:structured data in ml Contrast route:I V - Oral: no COMPARISON: CT CT ABD/PELVIS W CONTRAST from 09/27/2019 NM NM BONE SCAN WHOLE BODY GRP from 12/09/2022 FINDINGS: Bones: No fractures are seen. The alignment of the spine is normal including the cervicothoracic junc tion. No lytic or blastic lesion is identified. Discs: There is loss of disc height at T7-8 with endplate osteophytes projecting anteriorly. This li terry causes the area of linear increased activity on the recent bone scan. Milder degenerative chacon es are seen elsewhere. No large disk herniations are identified. Soft tissues: The soft tissues of the chest are unremarkable. The lungs are unremarkable. IMPRESSION: Degenerative disc changes at T7-8 account for the increased uptake seen on bone scan. No suspicious lesions. RADIATION DOSE DELIVERED: 513.07mGy.cm Total DLP DATA REPOSITORY: All CT scans at this facility are submitted to the National Radiology Data Registry (NRDR) Dose Index Registry (DIR) with the [employer] (ACR). RADIATION OPTIMIZATION: All CT scans at this facility use at least one of these dose optimization te chniques: automated exposure control; mA and/or kV adjustment per patient size (includes targeted exa ms where dose is matched to clinical indication); or iterative reconstruction.
== END 2023-01-10 01:09 ==
LOC: DI 00:50
PROVIDERS: PCP Family Medicine; Visit Provider Radiology Radiation Oncology
DX: M47.814 Spondylosis without myelopathy or radiculopathy, thoracic region (principal)
CPT/HCPCS: 72128

== ENCOUNTER → 2023-01-23 10:50 | Outpatient (BNVA) | payer MEDICARE, SELFPAY | PROVIDERS: PCP Family Medicine; Referring Provider Family Medicine; Visit Provider Urology | DX: C61 Malignant neoplasm of prostate (principal) | CPT/HCPCS: 99214 ==

== ENCOUNTER 2023-01-25 02:44 | Outpatient (CLI) | payer MEDICARE, SELFPAY ==
[2023-01-25 11:45] LABS: Calculated LDL 148 mg/dL (<100); Cholesterol 212 mg/dL (<200); HDL Cholesterol 43 mg/dL (40-60); Triglyceride 107 mg/dL (<150)
[2023-01-25 19:46] LABS: PSA, Diagnostic 5.5 ng/mL (<=6.5)
== END 2023-01-25 02:45 | disposition home or self-care (01) ==
LOC: LBO 02:44
PROVIDERS: Urology; PCP Family Medicine; Visit Provider Family Medicine
DX: C61 Malignant neoplasm of prostate (principal); E78.5 Hyperlipidemia, unspecified
CPT/HCPCS: 36415; 80061; 84153

== ENCOUNTER → 2023-01-27 07:30 | Outpatient (BNVA) | payer MEDICARE, SELFPAY | PROVIDERS: PCP Family Medicine; Referring Provider Family Medicine; Visit Provider Urology | DX: C61 Malignant neoplasm of prostate (principal) | CPT/HCPCS: 99442 ==

== ENCOUNTER 2023-04-26 17:57 | Outpatient (REF) | payer MEDICARE, SELFPAY ==
[2023-05-06 01:29] LABS: Lactoferrin, Qt, Stool 270.18 mcg/mL (<7.25)
== END 2023-04-26 17:58 | disposition home or self-care (01) ==
LOC: LBN 17:57
PROVIDERS: PCP Family Medicine; Visit Provider Internal Medicine Gastroenterology
DX: R19.7 Diarrhea, unspecified (principal)
CPT/HCPCS: 83631; 87493

== ENCOUNTER 2023-05-12 16:01 | Outpatient (REF) | payer MEDICARE, SELFPAY ==
[2023-05-20 15:28] LABS: Lactoferrin, Qt, Stool 28.31 mcg/mL (<7.25)
== END 2023-05-12 16:02 | disposition home or self-care (01) ==
LOC: LBN 16:01
PROVIDERS: PCP Family Medicine; Visit Provider Internal Medicine Gastroenterology
DX: R19.7 Diarrhea, unspecified (principal); K92.2 Gastrointestinal hemorrhage, unspecified
CPT/HCPCS: 83631

== ENCOUNTER 2023-06-06 09:22 | Outpatient (REF) | payer MEDICARE, SELFPAY ==
[2023-06-14 17:25] LABS: Lactoferrin, Qt, Stool <6.25 mcg/mL (<7.25)
== END 2023-06-06 09:23 | disposition home or self-care (01) ==
LOC: LBN 09:22
PROVIDERS: PCP Family Medicine; Visit Provider Internal Medicine Gastroenterology
DX: R19.7 Diarrhea, unspecified (principal); K92.2 Gastrointestinal hemorrhage, unspecified
CPT/HCPCS: 83631

== ENCOUNTER → 2023-08-04 09:48 | Outpatient (BNVA) | payer MEDICARE, SELFPAY | PROVIDERS: PCP Family Medicine; Referring Provider Family Medicine; Visit Provider Urology | DX: C61 Malignant neoplasm of prostate (principal) | CPT/HCPCS: 99215 ==

== ENCOUNTER 2023-08-07 08:54 | Outpatient (CLI) | payer MEDICARE, SELFPAY ==
[2023-08-07 18:04] LABS: PSA, Diagnostic 5.7 ng/mL (<=6.5)
== END 2023-08-07 08:55 | disposition home or self-care (01) ==
LOC: LBO 08:54
PROVIDERS: PCP Family Medicine; Visit Provider Urology
DX: C61 Malignant neoplasm of prostate (principal)
CPT/HCPCS: 36415; 84153

== ENCOUNTER → 2023-10-23 10:53 | Outpatient (BNVA) | payer MEDICARE, SELFPAY | PROVIDERS: PCP Family Medicine; Referring Provider Family Medicine; Visit Provider Urology | DX: C61 Malignant neoplasm of prostate (principal); N40.1 Benign prostatic hyperplasia with lower urinary tract symptoms; N13.8 Other obstructive and reflux uropathy | CPT/HCPCS: 99214 ==

== ENCOUNTER 2023-11-01 18:03 | Outpatient (REF) | payer MEDICARE, SELFPAY | END 2023-11-01 18:04 | disposition home or self-care (01) | LOC: LBN 18:03 | PROVIDERS: PCP Family Medicine; Visit Provider Urology | DX: R39.89 Other symptoms and signs involving the genitourinary system (principal) | CPT/HCPCS: 87086 ==

== ENCOUNTER → 2024-01-04 10:27 | Outpatient (BNVA) | payer MEDICARE, SELFPAY | PROVIDERS: PCP Family Medicine; Referring Provider Family Medicine; Visit Provider Urology | DX: C61 Malignant neoplasm of prostate (principal) | CPT/HCPCS: 99214 ==

== ENCOUNTER 2024-01-04 15:54 | Outpatient (CLI) | payer MEDICARE, SELFPAY ==
[2024-01-04 23:04] LABS: PSA, Diagnostic <0.1 ng/mL (<=6.5)
== END 2024-01-04 15:55 | disposition home or self-care (01) ==
LOC: LBO 16:03
PROVIDERS: PCP Family Medicine; Visit Provider Urology
DX: C61 Malignant neoplasm of prostate (principal)
CPT/HCPCS: 36415; 99214; 84153

== ENCOUNTER 2024-04-04 03:10 | Outpatient (CLI) | payer MEDICARE, SELFPAY ==
[2024-04-04 11:48] LABS: Calculated LDL 148 mg/dL (<100); Cholesterol 213 mg/dL (<200); HDL Cholesterol 40 mg/dL (40-60); Triglyceride 129 mg/dL (<150)
== END 2024-04-04 03:11 | disposition home or self-care (01) ==
LOC: LBO 03:10
PROVIDERS: PCP Family Medicine; Visit Provider Family Medicine
DX: E78.5 Hyperlipidemia, unspecified (principal)
CPT/HCPCS: 36415; 80061

== ENCOUNTER 2024-04-23 08:54 | Outpatient (CLI) | payer MEDICARE, SELFPAY ==
[2024-04-23 20:53] LABS: PSA, Diagnostic <0.1 ng/mL (<=6.5)
== END 2024-04-23 08:55 | disposition home or self-care (01) ==
LOC: LBO 08:54
PROVIDERS: PCP Family Medicine; Visit Provider Urology
DX: C61 Malignant neoplasm of prostate (principal)
CPT/HCPCS: 36415; 84153

== ENCOUNTER → 2024-05-16 14:24 | Outpatient (BNVA) | payer MEDICARE, SELFPAY | PROVIDERS: PCP Family Medicine; Referring Provider Family Medicine; Visit Provider Urology | DX: Z90.79 Acquired absence of other genital organ(s) (principal); C61 Malignant neoplasm of prostate | CPT/HCPCS: 99215 ==

== ENCOUNTER 2024-05-16 16:34 | Outpatient (CLI) | payer MEDICARE, SELFPAY ==
[2024-05-16 15:44] LABS: Abs Immature Grans 0.01 10^3/uL (0.0-0.06); Absolute Basophil Count 0.04 10^3/uL (0.0-0.2); Absolute Eosinophil Count 0.29 10^3/uL (0.0-0.7); Absolute Lymphocyte Count 2.51 10^3/uL (1.2-3.4); Absolute Monocyte Count 0.55 10^3/uL (0.1-0.8); Absolute Neutrophil Count 3.24 10^3/uL (1.2-6.7); Basophils % 0.6 %; Eosinophils % 4.4 %; HCT 41.8 % (40.0-50.0); Immature Grans % 0.2 %; Lymphocytes % 37.8 %; MCH 32.4 pg (27.0-33.0); MCHC 33.5 % (32.0-36.0); MCV 97 fL (80-95); MPV 9.6 fL (8.0-11.0); Monocytes % 8.3 %; Neutrophils % 48.7 %; Platelet Count 239 10^3/uL (130-400); RBC 4.32 10^6/uL (4.36-5.78); RDW-SD 43.1 fL; WBC 6.64 10^3/uL (4.4-10.8)
--- OUTSIDE RECORDS SUMMARY | 2024-05-16 16:41 | XMS_ITS | Encounter Summary ---
Author Organization [facility] Address [address] [place] [address] Care Team Providers Care Liquor Rectifier Name Role Phone Bryson Alba MD Primary Care Provider [phone] [phone] Encounter Details Date Type Department Care Team (Late st Contact Info) Description 11/16/2020 Lab Requisition [facility] Pathology & Laboratory Medicine - [facility] [address] [place] [address] Outr Resulting Lab, Provider Social History Tobacco Use Types Packs/Day Years Used Date Smoking Tobacco: Never Assessed Interpersonal Safety Answer Date Record ed Physically Hurt Never 06/09/2020 Verbally Threaten Not on file 06/09/2020 Sex and Gender Information Value Date Recorded Sex Assigned at Not on file Gender Identity Not on file Sexual Orientation Not on file documented as of this encounter Plan of Treatment Not on file documented as of this encounter Procedures Procedure Name Priority Date/Time Associated Diagnosis Comments PSA TOTAL, DIAGNOSTIC Routine 11/16/2020 10:21 EDT documented in this encounter Results * PSA TOTAL, DIAGNOSTIC (11/16/2020 10:21 EDT) PSA 6.0 0.0 - 6.5 ng/mL 11/16/2020 17:30 EDT [facility] Blood VENOUS BLOOD / Unknown 11/16/2020 10:21 EDT 11/16/2020 15:50 EDT Narrative [facility] - 11/16/2020 17:30 EDT NOTE: Serum PSA concentration should not be interpreted as absolute evidence for the presence or absence of malignant disease. Assayed on Siemens ADVIA [employer] XPT using chemiluminescent technology.??Values obtained by using different assay methods cannot be used interchangeably. Provider Outr Resulting Lab CHEMISTRY & BLOOD GAS ORDERABLES [facility] [address] [place] [address] documented in this encounter Visit Diagnoses Not on filedocumented in this encounter Care Teams Liquor Rectifier Relationship Specialty Start Date End Date Bryson Alba MD [address] [place] [address] PCP - General Family Medicine - Primary Care 09/14/21 documented as of this encounter
--- OUTSIDE RECORDS SUMMARY | 2024-05-16 16:41 | XMS_ITS | Encounter Summary ---
Author Organization [facility] [place] [address] Care Team Providers Care Department Editor Name Role Phone Bryson Alba MD Primary Care Provider [phone] [phone] Encounter Details Date Type Department Care Team (Late st Contact Info) Description 02/20/2024 11:40 AM EDT TH Visit (TeleHealth) [place] [id number] Danny Wray MD [facility] [place] [address] Malignant neoplasm of prostate Social History Tobacco Use Types Packs/Day Years Used Date Smoking Tobacco: Former Cigarettes Q uit: 1998 Smokeless Tobacco: Never Alcohol Use Standard Drinks/Week Comments Not Asked 0 (1 standard drink = 0.6 oz pur e alcohol) [facility] Inpatient Questions Answer Date Recorded Does Anyone Try to Keep You From Having Contact with Others or Doing Things Outside Your Home? no 11/08/2023 Feels Threatened by Someone no 10/16 Feels Unsafe at Home or Work/School no 11/08/2023 Physical Signs of Abuse Present no 11/08/2023 Sex and Gender Information Value Date Recorded Sex Assigned at Not on file Gender Identity Not on file Sexual Orientation Not on file documented as of this encounter Progress Notes * Danny Wray MD - 02/20/2024 11:40 AM EDT Urologic Oncology Clinic Note Date of Service: February 20, 2024 Name: Dylan Gilmore : 1950 CC: Prostate cancer HPI: Dylan Gilmore is a 73 y.o. old male with a history of prostate cancer status post robotic-assisted laparoscopic prostatectomy with bilateral PLND on 10/2023. Overall he is recovering well, expected post-op pain. Still has daytime frequency / urgency / nocturia. This was present preop as well. Physical Exam: Telehealth PSA <0.1 Assessment: # Prostate cancer, pT2N0, Grade Group 2, Margin negative s/p RALP / PLND 10/2023 Plan: # PSA management with Dr. Gonzales, he will reach out to schedule # Address constipation # I am available going forward with any issues Patient verbally consents to this telephone visit and understands that this visit may be billed, similar to a clinic office visit. I provided care to the patient today via telephone call. The total time associated with this visit was 20 minutes. documented in this encounter Plan of Treatment Upcoming Encounters Date Type Department Care Team (Late st Contact Info) Description 11/10/2022 11:59 PM EDT Anesthesia Event Main OR at [address] [phone] Jojo Salvador, [address] [place] [address] documented as of this encounter Visit Diagnoses Diagnosis Malignant neoplasm of prostate documented in this encounter Care Teams Department Editor Relationship Specialty Start Date End Date Bryson Alba MD [address] [place] [address] PCP - General Family Medicine 02/14/19 documented as of this encounter
--- OUTSIDE RECORDS SUMMARY | 2024-05-16 16:41 | XMS_ITS | Clinical Summary ---
Author Organization [facility] [place] [address] Care Team Providers Care Chairman Name Role Phone Bryson Alba MD Primary Care Provider [phone] [phone] Allergies Active Allergy Reactions Criticality Noted Date Comments Omeprazole Magnesium CIS - SOB, wheezing Tamsulosin High 08/08/2022 Other Reaction(s): Low blood pressure Trazodone 10/25/2023 H/a & agitation Medications Medication Sig Dispensed Refills Start Date End Date Status ibuprofen (Advil) 200 mg tablet Take 200 mg by mouth every 6 hours as needed for Pain. Active acetaminophen (Tylenol) 500 mg tablet Take 1,000 mg by mouth every 6 hours as needed for Pain. Active polyethylene glycoL (Miralax) 17 gram oral powder packet Take 17 g by mouth daily as needed. Active guaiFENesin (Robitussin) 20 mg/mL Liquid Take 200 mg by mouth 3 times daily as needed for Cough. Active loratadine (Claritin) 10 mg Tablet Take 10 mg by mouth daily. Active erythromycin (Romycin) 5 mg/gram (0.5 %) Ointment Place into the right eye 4 times daily. 3.5 g 11/09/2023 Active oxyCODONE (Roxicodone) 5 mg tablet Take 1 tablet by mouth every 6 hours as needed for Pain. 8 tablet 11/09/2023 Active Active Problems Problem Noted Date Diagnosed Date Prostate cancer 11/08/2023 Malignant neoplasm of prostate 12/14/2022 Cancer Staging:Clinical:Stage IIB(cT1c, cN0, cM0, PSA: 5.3, Grade Group: 2) - Signed by Ayo Teran MD on 12/14/2022 Encounters Date Type Department Care Team Description 02/20/2024 11:40 AM EDT TH Visit (TeleHealth) [place] [address] Danny Wray MD Malignant neoplasm of prostate from Last 3 Months Immunizations Name Administration Dates Next Due Covid-19 Bivalent (Pfizer Co mirnaty) 12yrs+ (4225-1276) 05/11/2022 Covid-19 Monovalent (Moderna Spikevax) 12yrs+ () 10/26/2021,10/27/2020,09/29/2020 Family History Medical History Relation Comments Heart Disease Father Alzheimer Disease Mother Breast Cancer Mother Relation Status Comments Father Mother Social History Tobacco Use Types Packs/Day Years Used Date Smoking Tobacco: Former Cigarettes Q uit: 1997 Smokeless Tobacco: Never Tobacco Cessation:Counseling Given: Not Answered Alcohol Use Standard Drinks/Week Comments Not Asked 0 (1 standard drink = 0.6 oz pur e alcohol) [facility] Questions Answer Date Recorded Does [...] on file Sexual Orientation Not on file Last Filed Vital Signs Vital Sign Reading Time Taken Comments Blood Pressure 120/80 11/14/2023 9:03 AM EDT Pulse 65 11/14/2023 9:03 AM EDT Temperature 36.6 ??C (97.9 ??F) 11/14/2023 9:03 AM ED T Respiratory Rate 16 11/14/2023 9:03 AM EDT Oxygen Saturation 100% 11/14/2023 9:03 AM EDT Inhaled Oxygen Concentration - - Weight 67.6 kg (149 lb) 11/08/2023 6:34 AM EDT Height 170.2 cm (5' 7) 11/08/2023 6:34 AM EDT Body Mass Index 23.34 11/08/2023 6:34 AM EDT Plan of Treatment Upcoming Encounters Date Type Department Care Team (Late Contact Info) Description 11/10/2022 11:59 PM EDT Anesthesia Event Main OR at [address] [address] Jojo Salvador, [employer] [address] [place] [address] [place] [address] Health Maintenance Due Date Last Done Comments CT Colonography 1950 Colonoscopy 1950 Colorectal Cancer Screening 1950 FIT DNA 1950 FIT 1950 Sigmoidoscopy (10 year) with FIT yearly 1950 Sigmoidoscopy 1950 Hepatitis C Screening 1968 Lipid Screening 1968 Tetanus/Diphtheria/Pertussis Vaccines (1 - Tdap) 1969 Zoster vaccine (1 of 2) 2000 AAA Screen 10/22/2015 Pneumoccocal Vaccine: 65+ (1 of 1 - PCV) 10/22/2015 Covid-19 Vaccine (5 - 2022-2 4 season) 2024 05/11/2022, 10/26/2021, 10/27/2020, Additional history exists Influenza (Flu) vaccine (1 o f 1 - Influenza standard series) 03/17/2024 Advance Directives Documents on File Type Date Recorded 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
--- OUTSIDE RECORDS SUMMARY | 2024-05-16 16:41 | XMS_ITS | Encounter Summary ---
Author Organization [facility] [place] [address] Care Team Providers Care Special Investigator Name Role Phone Bryson Alba MD Primary Care Provider [phone] [phone] Encounter Details Date Type Department Care Team (Latest Contact Info) Description 11/14/2023 Travel Social History Tobacco Use Types Packs/Day Years Used Date Smoking Tobacco: Former Cigarettes Q uit: 1997 Smokeless Tobacco: Never Alcohol Use Standard Drinks/Week Comments Not Asked 0 (1 standard drink = 0.6 oz pur e alcohol) [facility] Inpatient Questions Answer Date Recorded Does Anyone [...] as of this encounter Plan of Treatment Upcoming Encounters Date Type Department Care Team (Late st Contact Info) Description 11/10/2022 11:59 PM EDT Anesthesia Event Main OR at [address] [phone] Jojo Salvador, [address] [place] [address] documented as of this encounter Visit Diagnoses Not on filedocumented in this encounter Care Teams Special Investigator Relationship Specialty Start Date End Date Bryson Alba MD [address] [facility] [address] [place] [address] PCP - General Family Medicine 02/14/19 documented as of this encounter
--- OUTSIDE RECORDS SUMMARY | 2024-05-16 16:41 | XMS_ITS | Encounter Summary ---
Author Organization [facility] Address [address] [place] [address] Care Team Providers Care Waterworks Chief Engineer Name Role Phone Bryson Alba MD Primary Care Provider [phone] [phone] Encounter Details Date Type Department Care Team (Late st Contact Info) Description 08/21/2019 Lab Requisition [facility] Pathology & [place] [address] Unknown, Provider, Social History Tobacco Use Types Packs/Day Years Used Date Smoking Tobacco: Never Assessed Sex and Gender Information Value Date Recorded Sex Assigned at Not on file Gender Identity Not on file Sexual Orientation Not on file documented as of this encounter Plan of Treatment Not on file documented as of this encounter Procedures Procedure Name Priority Date/Time Associated Diagnosis Comments PSA TOTAL, DIAGNOSTIC Routine 08/21/2019 14:55 EST documented in this encounter Results * (ABNORMAL) PSA TOTAL, DIAGNOSTIC (08/21/2019 14:55 EST) PSA 5.3(H) 0.0 - 4.5 ng/mL 08/22/2019 14:28 EST [facility] Blood VENOUS BLOOD / Unknown 08/21/2019 14:55 EST 08/21/2019 21:46 EST Narrative [facility] - 08/22/2019 14:28 EST NOTE: Serum PSA concentration should not be interpreted as absolute evidence for the presence or absence of malignant disease. Assayed on Siemens ADVIA Centaur XPT using chemiluminescent technology.??Values obtained by using different assay methods cannot be used interchangeably. Provider Unknown CHEMISTRY & BLOOD GA S ORDERABLES [facility] [address] [place] [address] documented in this encounter Visit Diagnoses Not on filedocumented in this encounter Care Teams Waterworks Chief Engineer Relationship Specialty Start Date End Date Bryson Alba MD [address] [place] [address] PCP - General Family Medicine - Primary Care 09/14/21 documented as of this encounter
--- OUTSIDE RECORDS SUMMARY | 2024-05-16 16:41 | XMS_ITS | Encounter Summary ---
Author Organization [facility] Address [address] [place] [address] Care Team Providers Care Roving Changer Name Role Phone Bryson Alba MD Primary Care Provider [phone] [phone] Encounter Details Date Type Department Care Team (Late st Contact Info) Description 10/28/2022 Lab Requisition [facility] Pathology & Laboratory Medicine - [facility] [address] [place] [address] Farooq Gonzales MD [address] [place] [address] [place] [phone] Encounter for other general examination Social History Tobacco Use Types Packs/Day Years [...] Procedure Name Priority Date/Time Associated Diagnosis Comments SURGICAL PATHOLOGY Today 10/27/2022 15 :15 EDT Encounter for other general examination documented in this encounter Results * SURGICAL PATHOLOGY (10/27/2022 15:15 EDT) Note to Patient The following pathology results have been interpreted by your pathologist and may be available to you before your health provider has had the opportunity to review them. Please allow time for your provider to receive these results and explore management options, if applicable. 11/01/2022 6:38 EDT [facility] Final Diagnosis A. PROSTATE, RIGHT BASE LATERAL, BIOPSY (1): - Atrophy. B. PROSTATE, RIGHT BASE MEDIAL, BIOPSY (1): - Atrophy and focal basal cell hyperplasia. C. PROSTATE, RIGHT MID LATERAL, BIOPSY (1): - Focal atrophy. D. PROSTATE, RIGHT MID MEDIAL, BIOPSY (1): - Prostatic adenocarcinoma, acinar type, involving 1 of 1 core; 30% involvement. - Core (11.3 mm): 3 + 3 = 6 (Grade Group 1), 3.2 mm E. PROSTATE, RIGHT APEX LATERAL, BIOPSY (1): - Atrophy. - Focal lymphoid aggregate. F. PROSTATE, RIGHT APEX MEDIAL, BIOPSY (1): - Atrophy. - Focal chronic inflammation. G. PROSTATE, LEFT BASE LATERAL, BIOPSY (1): - Atrophy. H. PROSTATE, LEFT BASE MEDIAL, BIOPSY (1): - Focal atrophy. I. PROSTATE, LEFT MID LATERAL, BIOPSY (1): - Focal atrophy. J. PROSTATE, LEFT MID MEDIAL, BIOPSY (1): - Prostatic adenocarcinoma, acinar type, involving 1 of 1 core; <1% involvement. - Core (9.2 mm): Osman pattern 3, <0.1 mm Perineural invasion K. PROSTATE, LEFT APEX LATERAL, BIOPSY (1): - Prostatic adenocarcinoma, acinar type, involving 1 of 1 core; 25% involvement. - Core (14.0 mm): 3 + 4 = 7 (Grade Group 2) (<5% pattern 4), 3.7 mm 40% of tumor shows mucinous feature L. PROSTATE, LEFT APEX MEDIAL, BIOPSY (1): - Prostatic adenocarcinoma, acinar type, involving 1 of 1 core; <5% involvement. - Core (8.2 mm): Osman patterns 3 and 4, 0.3 mm Overall Grade Group: Group 2 New Prostate Cancer Grading System*: This system was developed based on a study of greater than 20,000 prostate cancer cases treated with radical prostatectomy and greater than 5000 cases treated by radiation therapy. The system was developed to provide a smaller number of grades with the most significant prognostic differences, with Group 1 having the best prognosis and Group 5 the worst prognosis. The highest grade group is reported for each biopsy series on a patient. Grade Group 1 (Ora score <=6) Grade Group 2 (Ora score 3+4=7) Grade Group 3 (Osman score 4+3=7) Grade Group 4 (Ora score 8) Grade Group 5 (Ora scores 9-10) * Amrit JENNINGS et al: A Contemporary Prostate Cancer Grading System: A Validated Alternative to the Ora Score. Eur Uro 2015 69(3):428-199 11/01/2022 6:38 [facility] Attestation By the signature below, the attending physician certifies that they have 1) personally conducted a gross and/or microscopic examination of the described specimen(s), and/or personally interpreted the results of laboratory testing of the described specimen(s), and 2) personally rendered or confirmed the above diagnosis. 11/01/2022 6:38 [facility] at 0638 Clinical History Encounter for other general examination 11/01/2022 6:38 [facility] Gross Description A. Received in formalin labelled with proper patient identification (initials G, P) and RT base Lat is a single morales-white tissue core (1.4 cm in length x 0.1 cm in diameter). Submitted intact in A1. B. Received in formalin labelled with proper patient identification (initials G, P) and RT base med is a single morales-white tissue core (1.2 cm in length x 0.1 cm in diameter). Submitted intact in B1. C. Received in formalin labelled with proper patient identification (initials G, P) and RT mid Lat is a single morales-white tissue core (1.9 cm in length x 0.1 cm in diameter). Submitted intact in C1. D. Received in formalin labelled with proper patient identification (initials G, P) and RT mid med is a single morales-white tissue core (1.4 cm in length x 0.1 cm in diameter). Submitted intact in D1. E. Received in formalin labelled with proper patient identification (initials G, P) and RT apex Lat is a single morales-white tissue core (1.2 cm in length x 0.1 cm in diameter). Submitted intact in E1. F. Received in formalin labelled with proper patient identification (initials G, P) and RT apex med is a single morlaes-white tissue core (1.6 cm in length x 0.1 cm in diameter). Submitted intact in F1. G. Received in formalin labelled with proper patient identification (initials G, P) and LT base Lat is a single morales-white tissue core (1.4 cm in length x 0.1 cm in diameter). Submitted intact in G1. H. Received in formalin labelled with proper patient identification (initials G, P) and LT base med is a single morales-white tissue core (1.2 cm in length x 0.1 cm in diameter). Submitted intact in H1. I. Received in formalin labelled with proper patient identification (initials G, P) and LT mid Lat is a single morales-white tissue core (1.5 cm in length x 0.1 cm in diameter). Submitted intact in I1. J. Received in formalin labelled with proper patient identification (initials G, P) and LT mid med is a single morales-white tissue core (1.0 cm in length x 0.1 cm in diameter). Submitted intact in J1. K. Received in formalin labelled with proper patient identification (initials G, P) and LT apex Lat is a single morales-white tissue core (1.3 cm in length x 0.1 cm in diameter). Submitted intact in K1. L. Received in formalin labelled with proper patient identification (initials G, P) and LT apex med is a single morales-white tissue core (1.2 cm in length x 0.1 cm in diameter). Submitted intact in L1. TUCKER CRAWLEY(ASCP) 10/29/2022 11:20 11/01/2022 6:38 T [facility] Performing Lab [facility] 11/01/2022 6:38 T [facility] Scanned Images 11/01/2022 6:38 [facility] Tissue ENTIRE PROSTATE / Unknown 10/27/2022 15:15 EDT 10/28/2022 6:58 EDT Tissue specimen (specimen) PROSTATIC STRUCTURE / Unknown 10/27/2022 15:15 EDT 10/28/2022 6:58 EDT Tissue specimen (specimen) PROSTATIC STRUCTURE / Unknown 10/27/2022 15:15 EDT 10/28/2022 6:58 EDT Tissue specimen (specimen) PROSTATIC STRUCTURE / Unknown 10/27/2022 15:15 EDT 10/28/2022 6:58 EDT Tissue specimen (specimen) PROSTATIC STRUCTURE / Unknown 10/27/2022 15:15 EDT 10/28/2022 6:58 EDT Tissue specimen (specimen) PROSTATIC STRUCTURE / Unknown 10/27/2022 15:15 EDT 10/28/2022 6:58 EDT Tissue specimen (specimen) PROSTATIC STRUCTURE / Unknown 10/27/2022 15:15 EDT 10/28/2022 6:58 EDT Tissue specimen (specimen) PROSTATIC STRUCTURE / Unknown 10/27/2022 15:15 EDT 10/28/2022 6:58 EDT Tissue specimen (specimen) PROSTATIC STRUCTURE / Unknown 10/27/2022 15:15 EDT 10/28/2022 6:58 EDT Tissue specimen (specimen) PROSTATIC STRUCTURE / Unknown 10/27/2022 15:15 EDT 10/28/2022 6:58 EDT Tissue specimen (specimen) PROSTATIC STRUCTURE / Unknown 10/27/2022 15:15 EDT 10/28/2022 6:58 EDT Tissue specimen (specimen) PROSTATIC STRUCTURE / Unknown 10/27/2022 15:15 EDT 10/28/2022 6:58 EDT aFrooq Gonzales MD PATHOLOGY ORDERAB LES Performing Organization Address City/State/[facility] Co de Phone Number [facility] [address] [place] [address] documented in this encounter Visit Diagnoses Diagnosis Encounter for other general examination documented in this encounter Care Teams Roving Changer Relationship Specialty Start Date End Date Bryson Alba MD [address] [place] [address] PCP - General Family Medicine - Primary Care 09/14/21 documented as of this encounter
--- OUTSIDE RECORDS SUMMARY | 2024-05-16 16:41 | XMS_ITS | Encounter Summary ---
[facility] [place] [address] Care Team Providers Care Surveillance Inspector Name Role Phone Bryson Alba MD Primary Care Provider [phone] Reason for Visit * Auth/Cert (Routine) Specialty Diagnoses / Procedures Referred By Contac t Referred To Contact Diagnoses Malignant neoplasm of prostate Prostate Cancer Procedures PRO LAP, PROSTATECTOMY, RADICAL, W/NERVE SPARE PRO LAP, PELVIC LYMPHADENECTOMY LAPAROSCOPIC PROSTATECTOMY, ROBOTICS ASSISTED (WRVU 22.46) LAPAROSCOPY,WITH BILATERAL TOTAL PELVIC LYMPHADENECTOMY, ROBOTIC (WRVU 12) MODIFIER ROBOT,DAVINCI XI Danny Wray MD [facility] [place] [address] [facility] Referral ID Status Reason Start Date Expiration Date Visits Re quested Visits Authorized [id number] 1 1 Encounter Details Date Type Department Care Team (Late st Contact Info) Description 11/08/2023 7:30 AM EDT - 11/08/2023 12:54 PM EDT [place] [address] Danny Wray MD [facility] [address] [place] [address] ROBOTIC LAPAROSCOPIC PROSTATECTOMY (WRVU 22.46) Social History Tobacco Use Types Packs/Day Years [...] on file documented as of this encounter Last Filed Vital Signs Vital Sign Reading Time Taken Comments Blood Pressure 89/56 11/08/2023 12:45 PM EDT Pulse 73 11/08/2023 12:45 PM EDT Temperature 37.1 ??C (98.8 ??F) 11/08/2023 12:11 PM E DT Respiratory Rate 9 11/08/2023 12:45 PM EDT Oxygen Saturation 93% 11/08/2023 12:45 PM EDT Inhaled Oxygen Concentration - - Weight 67.6 kg (149 lb) 11/08/2023 6:34 AM EDT Height 170.2 cm (5' 7) 11/08/2023 6:34 AM EDT Body Mass Index 23.34 11/08/2023 6:34 AM EDT documented in this encounter Discharge Summaries * Johanna Castle PA - 11/08/2023 2:57 PM EDT Discharge Summary Patient Name: Dylan Gilmore Patient Age: 73 y.o. Language: Greenlandic Race: White Ethnicity: Not nor Admit date: 11/08/2023 Discharge date: 11/09/2023 Attending Physician: Danny Wray MD Discharge Diagnoses (Hospital Problems) and Secondary Diagnoses (Chronic Problems): Active Hospital Problems Diagnosis Prostate cancer Resolved Hospital Problems No resolved problems to display. Active Non-Hospital Problems Diagnosis Malignant neoplasm of prostate Operations/Major Procedures: Procedure(s): ROBOTIC LAPAROSCOPIC PROSTATECTOMY (WRVU 22.46) ROBOTIC LAPAROSCOPY,WITH BILATERAL TOTAL PELVIC LYMPHADENECTOMY (WRVU 12) MODIFIER ROBOT,SHARON ROHINI 11/08/2023 Surgeon(s): Danny Wray MD Robertson, Ej An MD History of Presentation: (from pre-op H&P) Dylan Gilmore is a 73 y.o. 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 No recent changes to health status. Good erectile function, Prostate 120ccs Hospital Course: Patient was admitted to [facility] via the same day surgery program and underwent the above procedure. Operative findings as follows: Findings: Significant BPH, successful RALP with bilateral nerve spare He tolerated surgery well and was transferred from the PACU to the general floor in good condition a few hours after surgery. Patient's hospital course was uncomplicated. He remained afebrile, with stable vital signs throughout his hospital stay. Today, on 1 Day Post-Op, he has met all criteria fordischarge home: his pain is well controlled with medications by mouth, he is tolerating a regular diet, Lund is draining, and is up and ambulating without complications. He has been deemed safe for discharge. Plan: - [place] 11/13, [facility] w/ Dr Wray in 2 weeks telehealth requested Vital Signs at Discharge: Weight: Wt Readings from Last 1 Encounters: 11/08/23 67.6 kg (149 lb) Height: Ht Readings from Last 1 Encounters: 11/08/23 170.2 cm (5' 7) BMI: Body mass index is 23.34 kg/m??. Last value Range last 24 hrs Temperature Temp: 36.7 ??C (98.1 ??F) Temp: [36.4 ??C (97.5 ??F)-36.8 ??C (98.2 ??F)] Heart Rate Heart Rate: 68 Heart Rate: [67-85] Blood Pressure BP: 108/68 BP: (89-113)/(51-70) Respiratory Rate Resp: 16 Resp: [11-17] SpO2 SpO2: 99 % SpO2: [96 %-99 %] Exam at Discharge: General: NAD CV: regular rate Pulm: nonlabored breathing on room air Abd: soft, appropriately tender, nondistended, incisions c/d/I without pus or drainage : Lund draining clear yellow urine Ext: warm and well-perfused Important Studies and Lab Data: No results for input(s): WBC, HGB, PLATELET in the last 72 hours.No results for input(s): INR in the last 72 hours. No results for input(s): NA, K, CL, CO2, BUN, CREATININE, MAGNESIUM, PHOS in the last 72 hours. Studies: No results found for this visit on 11/08/23. Pending Studies and Lab Data: No current labs Discharge Conditions/Prognosis: Stable Discharge to: Home Updated Allergies/ADRs: Allergies Allergen Reactions Tamsulosin Other Reaction(s): Low blood pressure Omeprazole Magnesium CIS - SOB, wheezing Trazodone H/a & agitation Immunizations Given this Hospitalization: There is no immunization history on file for this patient. Discharge Medications: Your Medications New Medications Dose Details erythromycin 5 mg/gram (0.5 %) Ointment Commonly known as: Romycin Place into the right eye 4 times daily. Quantity: 3.5 g Refills: 0 oxyCODONE 5 mg tablet Commonly known as: Roxicodone Take 1 tablet by mouth every 6 hours as needed for Pain. 5 mg Quantity: 8 tablet Refills: 0 white petrolatum-mineral oiL Commonly known as: Refresh-PM Place into the right eye 2 times daily for 5 days. Quantity: 10 each Refills: 0 Continued medications, unchanged Dose Details acetaminophen 500 mg tablet Commonly known as: Tylenol Take 1,000 mg by mouth every 6 hours as needed for Pain. 1,000 mg Refills: 0 guaiFENesin 20 mg/mL Liquid Commonly known as: Robitussin Take 200 mg by mouth 3 times daily as needed for Cough. 200 mg Refills: 0 ibuprofen 200 mg tablet Commonly known as: Advil Take 200 mg by mouth every 6 hours as needed for Pain. 200 mg Refills: 0 loratadine 10 mg Tablet Commonly known as: Claritin Take 10 mg by mouth daily. 10 mg Refills: 0 polyethylene glycoL 17 gram oral powder packet Commonly known as: Miralax Take 17 g by mouth daily as needed. 17 g Refills: 0 STOPPED Medications finasteride 5 mg tablet Commonly known as: Proscar Smoking Status at Discharge: Social History Tobacco Use Smoking Status Former Types: Cigarettes Quit date: 1997 Years since quittin.3 Smokeless Tobacco Never Instructions Given to Patient at Discharge: Patient Instructions DISCHARGE INSTRUCTIONS FOLLOWING PROSTATECTOMY Call your doctor for: fevers greater than 101 severe nausea or vomiting increasing pain not controlled by pain medications increasing redness or drainage from incisions decreased urine output our if your catheter is no longer draining. The number for questions is [phone] before 5 PM weekdays and [phone] after 5 PM and weekends. Medications: - Erythromycin 0.5% ophthalmic ointment to use four times a day for 5 days for possible eye scratch(corneal abrasion) - You can stop Finasteride Activity level: No heavy lifting greater than 10 pounds (about equal to a full gallon jug) for the next 4 weeks or until cleared to do so at follow-up appointment. Otherwise activity as tolerated by comfort level. Lund Catheter Care: Keep the catheter in place to open drainage, attached to either the large drainage bag or small leg bag. Diet: You may resume your regular diet as tolerated. Driving: No driving while still taking opioid pain medications (wait at least 6- 8 hours since last dose). No driving with your catheter in place or if you are still experiencing postoperative pain asit may limit your ability to react quickly if necessary. Shower/Bath: You may shower and get incisions wet. Pat dry immediately following. Do not scrub themvigorously for the next 2-3 weeks. Do not soak incisions (i.e. soaking in bath or swimming) until told you may do so by a doctor, as this may promote a wound infection. Wound Care: You may cover wounds with sterile gauze as needed to prevent incision rubbing on clothes or for any seepage. Your drain site may leak fluid for the next few days after drain removal. Thisis normal and expected and should slow down each day. Pain Control: Take Ibuprofen and Tylenol as needed for the next two weeks for pain control. If you are still having moderate pain, take your narcotic pain medication as prescribed. Bowel regimen: Take Colace twice daily to keep bowel movements soft. If you experience diarrhea or more than 2 bowel movements/day, stop taking the colace. Follow up Appointments: You have a urology appointment on 11/13 for catheter removal. You will follow up with Dr Wray in 2 weeks for a telehealth appt. Appointment will be mailed to you. Please call [phone] (clinic number for appointments) to confirm date and time of your appointment if you do not receive it in 2-3 days. BLADDER - URINARY CATHETER Catheter care Always wash your hands before and after you handle your catheter. Make sure that urine is flowing out of the catheter into the urine collection bag. Make sure that the catheter tubing does not get twisted or kinked. Keep the urine collection bag below the level of your bladder. Make sure that the urine collection bag does not drag and pull on the catheter. Unless you have been told not to , it isokay to shower with your catheter and urine collection bag in place. Check for inflammation or signs of infection in the area around the catheter. Signs of infection include irritated, swollen, red, or tender skin. You may see pus around the catheter. Clean the skin around the catheter twice a day using soap and water. Dry with a clean towel afterward. Do not apply powder or lotion to the skin around the catheter. Do not tug or pull on the catheter. Do not have sexual intercourse while wearing a catheter. At night you may wish to hang the urine collection bag on the side of your bed. To empty the urine collection bag Wash your hands with soap and water. If your doctor has asked you to keep a record, measure the amount of urine in the bag before you empty it. Remove the drain spout from its sleeve at the bottom ofthe collection bag. Open the valve on the spout. Let the urine flow out of the bag and into the toilet or container. Do net let the tubing or drain spout touch anything. After you empty the bag, wipeoff any liquid on the end of the drain spout. Close the valve. Then put the drain spout back into its sleeve at the bottom of the collection bag. Wash your hands with soap and water. When should you call for help? Call your doctor now or seek immediate medical care if: You have symptoms of urinary infection. Forexample: You have blood or pus in your urine. You have pain in your back just below your rib cage. This is called flank pain. You have a fever, chills or body aches. You have groin or belly pain. Your urine smells bad. You see large blood clots in your urine No urine or very little urine is flowinginto the bag for 4 or more hours. Watch closely for changes in your health and be sure to contact your doctor if: The area around the catheter becomes irritated, swollen, red, tender or has pus draining from it. Urine is leaking from the place where the catheter enters your body. General Instructions None Future Appointments and Orders Future Appointments and Orders Future Appointments Provider Department Dept Phone 11/14/2023 9:00 AM UROLOGY, NURSE Urology at [facility] Arrive at: Promotions Specialist Area [phone] 11/28/2023 10:20 AM Danny Wray MD Urology at [facility] Arrive at: Home [phone] Please do not come in for this visit. Your provider will call you at the number you provided. Follow-Up: Future Appointments Date Time Provider Department Center 11/14/2023 9:00 AM UROLOGY, [facility] 11/28/2023 10:20 AM Danny Wray MD [facility] Primary Care Provider: Bryson Alba MD [phone] Unexpected Findings: none Call your doctor if: Please call your doctor immediately or go to an Emergency Department if you notice worsening pain not controlled by pain medications, uncontrolled headache, vision changes, chest pain, difficulty breathing, persistent nausea and vomiting, new redness or swelling in any extremities, new onset weakness or changes in sensation, or for any fevers greater than 101.3 F. Your care was managed by the Urology Team at [facility]. If you have any questions or concerns, please feel free to contact us. Provider Contact Information: Urology Clinic: [facility] (after business hours): Total time spent on discharge including [id number] time, care coordination, and discharge summarypreparation:45 mins TUCKER Canales 11/09/2023 documented in this encounter Discharge Instructions * Patient Instructions* Johanna Castle PA - 11/08/2023 2:57 PM EDT DISCHARGE INSTRUCTIONS FOLLOWING PROSTATECTOMY Call your doctor for: fevers greater than 101 severe nausea or vomiting increasing pain not controlled by pain medications increasing redness or drainage from incisions decreased urine output our if your catheter is no longer draining. The number for questions is [phone] before 5 PM weekdays and [phone] after 5 PM and weekends. Medications: - Erythromycin 0.5% ophthalmic ointment to use four times a day for 5 days for possible eye scratch(corneal abrasion) - You can stop Finasteride Activity level: No heavy lifting greater than 10 pounds (about equal to a full gallon jug) for the next 4 weeks or until cleared to do so at follow-up appointment. Otherwise activity as tolerated by comfort level. Lund Catheter Care: Keep the catheter in place to open drainage, attached to either the large drainage bag or small leg bag. Diet: You may resume your regular diet as tolerated. Driving: No driving while still taking opioid pain medications (wait at least 6- 8 hours since last dose). No driving with your catheter in place or if you are still experiencing postoperative pain asit may limit your ability to react quickly if necessary. Shower/Bath: You may shower and get incisions wet. Pat dry immediately following. Do not scrub themvigorously for the next 2-3 weeks. Do not soak incisions (i.e. soaking in bath or swimming) until told you may do so by a doctor, as this may promote a wound infection. Wound Care: You may cover wounds with sterile gauze as needed to prevent incision rubbing on clothes or for any seepage. Your drain site may leak fluid for the next few days after drain removal. Thisis normal and expected and should slow down each day. Pain Control: Take Ibuprofen and Tylenol as needed for the next two weeks for pain control. If you are still having moderate pain, take your narcotic pain medication as prescribed. Bowel regimen: Take Colace twice daily to keep bowel movements soft. If you experience diarrhea or more than 2 bowel movements/day, stop taking the colace. Follow up Appointments: You have a urology appointment on 11/13 for catheter removal. You will follow up with Dr Wray in 2 weeks for a telehealth appt. Appointment will be mailed to you. Please call [phone] (clinic number for appointments) to confirm date and time of your appointment if you do not receive it in 2-3 days. BLADDER - URINARY CATHETER Catheter care Always wash your hands before and after you handle your catheter. Make sure that urine is flowing out of the catheter into the urine collection bag. Make sure that the catheter tubing does not get twisted or kinked. Keep the urine collection bag below the level of your bladder. Make sure that the urine collection bag does not drag and pull on the catheter. Unless you have been told not to , it isokay to shower with your catheter and urine collection bag in place. Check for inflammation or signs of infection in the area around the catheter. Signs of infection include irritated, swollen, red, or tender skin. You may see pus around the catheter. Clean the skin around the catheter twice a day using soap and water. Dry with a clean towel afterward. Do not apply powder or lotion to the skin around the catheter. Do not tug or pull on the catheter. Do not have sexual intercourse while wearing a catheter. At night you may wish to hang the urine collection bag on the side of your bed. To empty the urine collection bag Wash your hands with soap and water. If your doctor has asked you to keep a record, measure the amount of urine in the bag before you empty it. Remove the drain spout from its sleeve at the bottom ofthe collection bag. Open the valve on the spout. Let the urine flow out of the bag and into the toilet or container. Do net let the tubing or drain spout touch anything. After you empty the bag, wipeoff any liquid on the end of the drain spout. Close the valve. Then put the drain spout back into its sleeve at the bottom of the collection bag. Wash your hands with soap and water. When should you call for help? Call your doctor now or seek immediate medical care if: You have symptoms of urinary infection. Forexample: You have blood or pus in your urine. You have pain in your back just below your rib cage. This is called flank pain. You have a fever, chills or body aches. You have groin or belly pain. Your urine smells bad. You see large blood clots in your urine No urine or very little urine is flowinginto the bag for 4 or more hours. Watch closely for changes in your health and be sure to contact your doctor if: The area around the catheter becomes irritated, swollen, red, tender or has pus draining from it. Urine is leaking from the place where the catheter enters your body. documented in this encounter Medications at Time of Discharge Medication Sig Dispensed Refills Start Date End Date erythromycin (Romycin) 5 mg/gram (0.5 %) Ointment Place into the right eye 4 times daily. 3.5 g 11/09/2023 oxyCODONE (Roxicodone) 5 mg tablet Take 1 tablet by mouth every 6 hours as needed for Pain. 8 tablet 11/09/2023 loratadine (Claritin) 10 mg Tablet Take 10 mg by mouth daily. ibuprofen (Advil) 200 mg tablet Take 200 mg by mouth every 6 hours as needed for Pain. acetaminophen (Tylenol) 500 mg tablet Take 1,000 mg by mouth every 6 hours as needed for Pain. polyethylene glycoL (Miralax) 17 gram oral powder packet Take 17 g by mouth daily as needed. guaiFENesin (Robitussin) 20 mg/mL Liquid Take 200 mg by mouth 3 times daily as needed for Cough. white petrolatum-mineral oiL (Refresh-PM) Place into the right eye 2 times daily for 5 days. 10 each 11/09/2023 11/14/2023 documented as of this encounter Progress Notes * Jarad Lopez RN - 11/09/2023 2:24 PM EDT [facility] Short Stay Unit Discharge Note All relevant discharge milestones have been met by the patent. After Visit Summary and discharge teaching reviewed with the patient and a family member. IV access has been discontinued. All personal belongings have been returned to the patient/family upon their departure from the unit. Patient has been discharged to home The patient has been discharged without VNA services. Pt provided lund education, shown video, and D/C wearing leg bag. * David Zamorano MD - 11/08/2023 1:23 PM EDT PACU Note: Corneal Abrasion Evaluation Assessed patient postoperatively for suspected corneal abrasion given symptoms of scratchiness, redness, and tearing of eye. No clear ocular lesion on exam, though significant inflammation noted on right eye. Decided to empirically treat for corneal abrasion. Provided: Erythromycin 0.5% ophthalmic ointment to use four times a day for 5 days Lubricating ointment to use twice daily as needed for symptomatic relief of eye irritation. Instructed patient to seek ophthalmic care if symptoms have not improved over the next 7 days. Inpatient team or Primary care provider should reach out to ophthalmology for consultation if issuepersists -David Zamorano MD Software Consultant * Melanie Delacruz RN - 11/08/2023 12:11 PM EDT Patient arrived from OR in bed, attached to monitors and alarms set appropriately for patient. VSS.Abdominal incisions c/d/I. 1301 Patient reporting it feels like something is in R eye, unable to keep eye open. Mild tearing. Omar Zamorano MD paged. [phone] - Report called to CHILO Joseph. Awaiting medication from pharmacy for corneal abrasion. visiting at bedside. documented in this encounter H&P Notes * Ej Sargent MD - 11/07/2023 3:16 PM EDT Patient Name: Dylan Gilmore Age: 73 y.o. Date of : 1950 Attending Provider: Danny Wray MD Dylan Gilmore is a 73 y.o. 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 No recent changes to health status. Good erectile function, Prostate 120ccs MEDICAL AND SURGICAL HISTORY Past Medical History: Diagnosis Date Anxiety Cancer Chronic anxiety Constipation Hyperlipidemia Prostate cancer Past Surgical History: Procedure Laterality Date COLONOSCOPY US GUIDED BIOPSY PROSTATE WITH URONAV FUSION ALLERGIES Allergies Allergen Reactions Tamsulosin Other Reaction(s): Low blood pressure Omeprazole Magnesium CIS - SOB, wheezing Trazodone H/a & agitation MEDICATIONS No current facility-administered medications on file prior to encounter. Current Outpatient Medications on File Prior to Encounter Medication Sig Dispense Refill loratadine (Claritin) 10 mg Tablet Take 10 mg by mouth daily. PHYSICAL EXAM Temp: [36.7 ??C (98.1 ??F)] Heart Rate: [65] Resp: [18] BP: (114)/(71) SpO2: [98 %] Heart Rate from SpO2: -- GEN: Resting comfortably in bed, conversant, NAD. CHEST: Normal work of breathing. CV: Sinus rhythm. 2+ pulses bilaterally. ABD: Soft, non-tender, non-distended. EXTR: Moving spontaneously. SKIN: Warm and dry. NEURO: Alert and follows commands. ASSESSMENT / PLAN 73 y.o. male presenting for RALP. Patient appears fit for surgery. The details, alternatives, risks, and benefits of the procedure were reviewed, and the patient wishes to proceed. Informed consent has been obtained. All questions were answered to the patient's satisfaction. Proceed with surgery. The patient's history and physical exam have been reviewed and completed. There has been no interval change from that of the pre-operative history and physical exam performed within the last 30 days. documented in this encounter Miscellaneous Notes * Op Note - Ej Sargent MD - 11/08/2023 8:33 AM EDT [facility] Operative Note Patient Name: Dylan Gilmore : [id number] MR#: [id number] Case Date: 11/08/2023 Surgeon: Surgeon(s) and Role: * Danny Wray MD - Primary * Ej Sargent MD - Resident - Assisting Registered Nurse Marketing Program Manager: Nora Forman RN Preoperative diagnosis: Prostate Cancer Postoperative diagnosis: Prostate Cancer Procedure(s) (LRB): ROBOTIC LAPAROSCOPIC PROSTATECTOMY (WRVU 22.46) (N/A) ROBOTIC LAPAROSCOPY,WITH BILATERAL TOTAL PELVIC LYMPHADENECTOMY (WRVU 12) (Bilateral) MODIFIER ROBOT,DAVINCI XI (N/A) Findings: Significant BPH, successful RALP with bilateral nerve spare Anesthesia: General Estimated Blood Loss: 50 mL Specimens removed during surgery: Order Name Source Comment Collection Info Order Time SPECIMEN TO PATHOLOGY BILATERAL pelvic lymph nodes Prostate Cancer BILATERAL pelvic lymph nodes resection 11/08/2023 9:43 AM Time specimen removed from patient: 9:42 AM Number of tissue samples (in container) 1 SPECIMEN TO PATHOLOGY LEFT BLADDER NECK MARGIN PROSTATE CANCER LEFT BLADDER NECK MARGIN excision 11/08/2023 10:28 AM Time specimen removed from patient: 10:22 AM Number of tissue samples (in container) 1 SPECIMEN TO PATHOLOGY prostate Prostate Cancer prostate excision 11/08/2023 11:25 AM Time specimen removed from patient: 11:25 AM Number of tissue samples (in container) 1 Drains: 18Fr lund Surgical Closure: Primary Closure - skin incision is completely closed without any wires, sue, drains or other devices Disposition: awakened from anesthesia, extubated and taken to the recovery room in a stable condition, having suffered no apparent untoward event. Condition: doing well without problems (Please see the Surgical Encounter Summary for any Implant and Specimen details pertinent to this patient.) HPI/Surgical Indications: Dylan Gilmore is a 73 y.o. 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 No recent changes to health status. Good erectile function, Prostate 120ccs Procedure Description: The patient was identified in the pre-operative holding area. Consent was verified. The patient wastaken to the operating room and placed supine on the operating table. General anesthesia was induced. The patient was prepped and draped in the usual sterile fashion, and was secured to the table. A timeout was performed involving all members of the OR team confirming the patient's identity and planned procedure. Preoperative antibiotics were administered. Veress needle insufflation was performed at the planned supraumbilical port site. An 8 mm robotic trocar was inserted using blunt tip trocar. No bowel or vascular injury was noted in the abdomen. Theabdomen was thoroughly insufflated to a pressure of 15 mm Hg. Three additional 8 mm robotic trocarswere inserted in a linear fashion. A 12 mm esl instructional assistant port was also inserted, through which AirSeal insufflation was established. A 5 mm esl instructional assistant port was inserted between the camera and robotic working arm in the left upper abdomen. The midline trocar was changed to a 12mm trocar. Steep Trendelenberg position was achieved, the da Melissa Xi robot was docked with fenestrated forceps in the left hand and monopolar scissors in the right hand. An incision was made on the peritoneum beneath the bladder. The vasa were identified and dissected.They were ligated and the bilateral seminal vesicles were also dissected free. The posterior plane was developed to the apex of the prostate. Attention was turned to bilateral pelvic lymphadenectomy, starting on the right. The peritoneum wasincised lateral to the medial umbilical ligament to the vas deferens. The bladder was swept medially to peel the perivesical fat from the pelvic side wall and pubic bone. The external iliac vein was noted and the packet underneath it was taken, skeletonizing the obturator nerve and vessels with thelateral border being the pelvic sidewall. Care was taken to avoid damage to the obturator nerve or ureter. The same procedure was performed without incident on the contralateral side. The nodes were removed via the AirSeal port and sent to Pathology as a single specimen. No gross evidence of lymph node metastasis was noted. The bladder was dropped from the anterior abdominal wall by incising lateral to the medial umbilical ligaments. The pubic bone was identified and the space of Retzius developed. Fat was removed from the prostate and endopelvic fascia. The endopelvic fascia was incised bilaterally and the levator muscle swept from the prostate. The puboprostatic ligaments were taken and the apex exposed. The superficial dorsal vein was controlled with cautery. The dorsal venous complex was then taken with the robotic stapler (white load). The anterior bladder neck was opened and the catheter visualized. This was suspended under the pubic bone with the fourth arm. The posterior bladder neck was incised and the the posterior plane from prior dissection was entered. Incision of the posterior bladder neck was noted to be remote from theureteral orifices. The vasa and seminal vesicles were brought into the field. The prostate pedicle was taken with the vascular stapler. Nerve-sparing was performed on the right and left side. The dorsal vein was incised to the urethra, which was identified and isolated. The urethra was incised and t ransected. Residual rectourethralis was taken to liberate the prostate. The posterior dissection and rectum were inspected; there was no sign of injury. The prostate was placed in a specimen bag. Vesicourethral anastamosis was performed with two interlocked 3-0 V-Loc sutures. The posterior plate was brought together, and the anastamosis was run superiorly on each side. This was tied at the 12o'clock position. The catheter was irrigated, and no leak was noted. The final catheter was inserted, and the balloon was inflated. The 12 mm esl instructional assistant port was closed with a Roger-Thomasen device. A All robotic ports were removedunder vision. The prostate was extracted through the camera port under vision. The fascia was closed with 0 Vicryl suture in interrupted fashion. The skin incisions were closed with 4-0 Monocryl suture. Dermabond skin glue was applied. The patient tolerated the procedure well and was awakened from anesthesia with no adverse events. Asponge and instrument count was performed and the counts were correct. The patient was taken to therecovery area in stable condition. Dr. Wray, the attending surgeon, was present for the entire procedure. Associated attestation - Danny Wray MD - 11/09/2023 7:06 PM EDT Attestation: Case Date: 11/08/2023 I was present and I participated during the entire procedure (does not need to include opening and closing). Danny Wray MD 11/09/2023 documented in this encounter Plan of Treatment Upcoming Encounters Date Type Department Care Team (Late st Contact Info) Description 11/10/2022 11:59 PM EDT Anesthesia Event Main OR at [address] [id number] Jojo Salvador, [address] [place] [address] documented as of this encounter Procedures Procedure Name Priority Date/Time Associated Diagnosis Comments SPECIMEN TO PATHOLOGY Routine 11/08/2023 11:25 AM EDT SPECIMEN TO PATHOLOGY Routine 11/08/2023 10:28 AM EDT SPECIMEN TO PATHOLOGY Routine 11/08/2023 9:43 AM EDT SURGICAL PATHOLOGY REPORT Routine 11/08/2023 9:42 AM EDT MODIFIER ROBOT,DAVINCI XI 11/08/2023 7:45 AM EDT Malignant neoplasm of prostate Lap, Pelvic Lymphadenectomy ([id number]) 11/08/2023 7:45 AM EDT Malignant neoplasm of prostate Lap, Prostatectomy, Radical, W/Nerve Spare ([id number]) 11/08/2023 7:45 AM EDT Malignant neoplasm of prostate LAPAROSCOPIC PROSTATECTOMY-UROL\ROBO TICS ASSISTED Routine 11/08/2023 6:00 AM EDT Malignant neoplasm of prostate LAPAROSCOPY W/ GAURAV TOTAL PELVIC LYMPH, ROBOTIC Routine 11/08/2023 6:00 AM EDT Malignant neoplasm of prostate documented in this encounter Results * Specimen to Pathology (11/08/2023 11:25 AM EDT) AP Specimen 11/08/2023 11:2 5 AM EDT 11/08/2023 11:26 AM EDT [facility] LAB[facility] - 11/08/2023 11:26 AM EDT Specimen requisition ordered. ??Separate Pathology report to follow Danny Wray MD PATHOLOGY/CYTOLOGY ORDERABLES Performing Organization Address [facility] [place] [address] * Specimen to Pathology (11/08/2023 10:28 AM EDT) AP Specimen 11/08/2023 10:2 8 AM EDT 11/08/2023 10:28 AM EDT Narrative [facility] - 11/08/2023 10:28 AM EDT Specimen requisition ordered. ??Separate Pathology report to follow Danny Wray MD PATHOLOGY/CYTOLOGY ORDERABLES Performing Organization Address [facility] [place] [address] * Specimen to Pathology (11/08/2023 9:43 AM EDT) AP Specimen 11/08/2023 9:43 AM EDT 11/08/2023 9:43 AM EDT Narrative [facility] - 11/08/2023 9:43 AM EDT Specimen requisition ordered. ??Separate Pathology report to follow Danny Wray MD PATHOLOGY/CYTOLOGY ORDERABLES Performing Organization Address [facility] [place] [address] * (ABNORMAL) Surgical Pathology Report (11/08/2023 9:42 AM EDT) Pathologist [facility] Final Diagnosis ? Location: [facility]; [facility]; A The signing pathologist has (i) examined the relevant preparation(s) for the specimen(s) and (ii) rendered or confirmed the diagnosis(es). . ?Surgical Pathology DIAGNOSIS A - Bilateral pelvic lymph nodes, excision: ?Six lymph nodes, no evidence of malignancy (0/6). B - Left bladder neck margin, excision: ?No evidence of malignancy. C - Prostate (radical prostatectomy): ?Adenocarcinoma, grade group 2, Osman grade 3+4, ?(see Synoptic Report). CR-0 Electronically signed by: ?Baron MCDUFFIE, Leopoldo Fuller Verified: ??11/23/2023 15:49 ??Pathologist Performed at: ??-[facility] [place] Dept[facility] of [place], [place] [address] Anesthesia Resident: Snehal Smith MD, FCAP, ??CLIA Certificate: [id number] SYNOPTIC Specimen ? Procedure: ??Radical prostatectomy Tumor ? Histologic Type: ??Acinar adenocarcinoma, conventional (usual) ? Histologic Grade ?Grade: ??Grade group 2 (Osman Score 3 + 4 = 7) ? Percentage of Pattern 4: ??Greater than 40% ? Intraductal Carcinoma (IDC): ??Not identified ? Cribriform Glands: ??Present ? Treatment Effect: ??No known presurgical therapy ? Tumor Quantitation ?Estimated Percentage of Prostate Involved by Tumor: ??6 - 10% ?Location of Dominant Nodule: ??Bilateral, predominantly left anterior and ? posterior ? Extraprostatic Extension (EPE): ??Not identified ? Urinary Bladder Neck Invasion: ??Not identified ? Seminal Vesicle Invasion: ??Not identified ? Lymphatic and / or Vascular Invasion: ??Not Identified Margins ? Margin Status: ??All margins negative for invasive carcinoma Regional Lymph Nodes ? Regional Lymph Node Status: ??All regional lymph nodes negative for tumor ? Number of Lymph Nodes Examined: ??6 pTNM Classification (AJCC 8th Edition) ? pT Category: ??pT2 ? pN Category: ??pN0 Additional Findings ? Additional Findings: ??Nodular prostatic hyperplasia Best Tumor Blocks for Future Studies ? Tumor Block(s): ??C8, C9 ? Normal Block(s): ??C22 ? CAP eCP 2022 Q3 Release DISCUSSION THIS RESULT REQUIRES PHYSICIAN/A.P.P. FOLLOW UP . DISCUSSION Scanned slides: [id number] C8-1 [id number] C9-1 [id number] C10-1 [id number] C11-1 [id number] C13-1 SPECIMEN(S) SUBMITTED A - Bilateral pelvic lymph nodes, excision B - Left bladder neck margin, excision C - Prostate, resection CLINICAL INFORMATION Prostate cancer SPECIMEN PROCESSING A - Labeled/Fixative: Bilateral pelvic lymph nodes, fresh. Quantity/Size: Two, 5.9 x 3.5 x 1.5 cm. Tissue Description: Adipose tissue with six lymph nodes measuring up to 3.5 x 1.2 x 0.6 cm. Strap Machine Operator sections in 9 cassettes as follows: ?A1: Three individual lymph node candidates ?A2: Single lymph node trisected ?A3-A5: Single lymph node, serially sectioned ?A6-A9: Single lymph node, serially section B - Labeled/Fixative: Left bladder neck margin, fresh. Quantity/Size: Single, 1.4 x 1.0 x 0.9 cm. Tissue Description: Morales ??-black non-oriented cauterized tissue. Sections/Processi ng: Entirely submitted in 1 cassette labeled B1. C - Labeled/Fixative: Prostate, fresh. Tissue Description: Intact, radical prostatectomy, right seminal vesicle, left seminal vesicle, right vas deferens, left vas deferens. DIMENSIONS/WEIGHT Weight: 83.0 grams. [place] to base: 5.9 cm. Transverse: 6.5 cm. Anterior to posterior: 5.0 cm. Rt Seminal Vesicle: 2.5 x 2.0 x 1.0 cm. Lt Seminal Vesicle: 2.0 x 0.9 x 0.9 cm. Rt Vas Deferens: 2.6 x 0.7 x 0.7 cm. Lt Vas Deferens: 3.4 x 0.6 x 0.6 cm. PROSTATE Outer Surface: [place]-morales, nodular and irregularly shaped; 3.0 cm anterior staple line; 2.6 cm right lateral staple line; 3.0 cm left lateral staple line. Cut Surface: Scattered morales ??-yellow firm regions of parenchyma occupying approximately 10%. The right half of the specimen is inked black and the left half inked yellow. The anterior, right lateral, and left lateral staple lines are removed and the underlying tissue inked blue. The bladder neck margin is removed and submitted radially. The prostate is serially sectioned from apex to base at 3-mm intervals. Slice I is submitted on edge as anterior and posterior halves. Beginning with slice II, the remaining slices are submitted in sequence as whole mount sections. Strap Machine Operator sections in 29 cassettes as follows: ?C1-C4: Bladder neck margin ?C5-C7: [place], from anterior to posterior ?C8-C20: Prostate cross-sections . SPECIMEN PROCESSING ?C21-C26: Prostate -seminal vesicle interface, from right to left ?C27: Bilateral vas deferens margins, en face ?C28: Strap Machine Operator right seminal vesicle ?C29: Strap Machine Operator left seminal vesicle ??aaw(A) 11/23/2023 3:49 PM EDT [facility] PROSTATIC STRUCTURE / Unknown 11/08/2023 9:42 AM EDT 11/08/2023 9:42 AM EDT Margin 11/08/2023 9:42 AM EDT 11/08/2023 9:42 AM EDT PROSTATIC STRUCTURE / Unknown 11/08/2023 9:42 AM EDT 11/08/2023 9:42 AM EDT Danny Wray MD PATHOLOGY/CYTOLOGY ORDERABLES [facility] [place] [address] documented in this encounter Visit Diagnoses Diagnosis Prostate cancer- Primary Malignant neoplasm of prostate Malignant neoplasm of prostate Malignant neoplasm of prostate documented in this encounter Admitting Diagnoses Diagnosis Prostate cancer Malignant neoplasm of prostate documented in this encounter Administered Medications Inactive Administered Medications - up to 3 most recent administrations Medication Order MAR Action Action Date Dose Rate Site acetaminophen (Tylenol) tablet 975 mg 975 mg (rounded from 1,000 mg), Oral, ONCE, 1 dose, On Mon11/08/23 at 0700, Maximum dose of acetaminophen is 4000 mg from all sources in 24 hours. When ordered for pain, acetaminophen should be given even when other ordered pain medications are indicated. , Day of Surgery (Day of Procedure), Routine Given 11/08/2023 6:56 AM EDT 975 mg acetaminophen (Tylenol) tablet 975 mg 975 mg, Oral, EVERY 4 HOURS, First dose on Mon11/08/23 at 1315, Until Discontinued, Maximum dose of acetaminophen is 4,000 mg from all sources in 24 hours. When ordered for pain, acetaminophen should be given even when other ordered pain medications are indicated., Routine Given 11/09/2023 1:31 PM EDT 975 mg Given 11/09/2023 6:22 AM EDT 975 mg Given 11/08/2023 6:18 PM EDT 975 mg BUpivacaine (pf) (Marcaine) (2.5 mg/mL) 0.25% injection PRN, Starting on Mon11/08/23 at 1148, Until Mon11/09/23 at 1652, Intra-Operative (Intra-Procedure), Routine Given 11/08/2023 11:48 AM EDT 30 mLs erythromycin (Romycin) 5 mg/gram (0.5 %) ophthalmic ointment Right Eye, 4 TIMES DAILY, First dose on Mon11/08/23 at 1345, Until Discontinued, Use ~1 cm ribbon Given 11/09/2023 1:34 PM EDT Given 11/09/2023 8:11 AM EDT Given 11/08/2023 6:19 PM EDT heparin (porcine) (5,000 units/1 mL) subcutaneous injection 5,000 Units 5,000 Units, Subcutaneous, GLUE JOINTER FEEDER TO O.R., 1 dose, On Mon11/08/23 at 0700, Day of Surgery (Day of Procedure), Routine Given 11/08/2023 6:59 AM EDT 5,000 Units heparin (porcine) (5,000 units/1 mL) subcutaneous injection 5,000 Units 5,000 Units, Subcutaneous, EVERY 8 HOURS SCHEDULED, First dose on Mon11/08/23 at 1600, Until Discontinued, Routine Given 11/09/2023 6:22 AM EDT 5,000 Units loratadine (Claritin) tablet 10 mg 10 mg, Oral, DAILY, First dose on Mon11/08/23 at 1600, Until Discontinued, Routine Given 11/09/2023 8:10 AM EDT 10 mg ondansetron (pf) (Zofran) (2 mg/mL) injection 4 mg 4 mg, Intravenous, EVERY 8 HOURS PRN, Starting on Mon11/08/23 at 1506, Until Etelvina 11/09/23 at 1652, Nausea, May repeat times one in 30 minutes if ineffective. If multiple antiemetics are ordered, use ondansetron first., Recovery (Recovery-Hospital Unit) ondansetron (Zofran) tablet 4 mg 4 mg, Oral, EVERY 8 HOURS PRN, Starting on Mon11/08/23 at 1506, Until Etelvina 11/09/23 at 1652, Nausea, Vomiting, If multiple antiemetics are ordered, use ondansetron first. PO Preferred. If patient unable to take PO, may give IV if ordered. May repeat times one in 45 minutes if ineffective., Recovery (Recovery-Hospital Unit), Routine prochlorperazine (Compazine) (5 mg/mL) injection 5 mg 5 mg, Intravenous, EVERY 30 MIN PRN, 2 doses, Starting on Mon11/08/23 at 1206, Until Mon11/08/23 at 1413, Nausea, Vomiting, If multiple antiemetics ordered, use ondansetron first and if ineffective use prochlorperazine or haloperidoL second, PACU Recovery, Routine Given 11/08/2023 12:34 PM EDT 5 mg sodium chloride 0.9 % (flush) (BD PosiFlush Normal Saline 0.9) flush 5 mL 5 mL, Intravenous, 2 TIMES DAILY, First dose on Mon11/08/23 at 2100, Until Discontinued, Recovery (Recovery-Hospital Unit), Routine Given 11/08/2023 9:20 PM EDT 5 mLs sodium chloride 0.9% infusion 1,000 mL, at 100 mL/hr, Intravenous, CONTINUOUS, Starting on Mon11/08/23 at 1245, Until Etelvina 11/09/23 at 1652, Recovery (Recovery-Hospital Unit) New Bag 11/08/2023 12:42 PM EDT 1,000 mLs 100 mL/hr white petrolatum-mineral oiL ophthalmic ointment Right Eye, 2 TIMES DAILY, First dose on Mon11/08/23 at 1345, Until Discontinued Given 11/08/2023 9:20 PM EDT documented in this encounter Active and Recently Administered Medications Times are shown in EDT. Scheduled Medication Order 11/07/2023 11/08/2023 11/09/2023 acetaminophen (Tylenol) tablet 975 mg (COMPLETED) 975 mg (rounded from 1,000 mg), Oral, ONCE, 1 dose, On Mon11/08/23 at 0700, Maximum dose of acetaminophen is 4000 mg from all sources in 24 hours. When ordered for pain, acetaminophen should be given even when other ordered pain medications are indicated. , Day of Surgery (Day of Procedure), Routine 0656 (Given - Provider: Idalia Mar RN) acetaminophen (Tylenol) tablet 975 mg 975 mg, Oral, EVERY 4 HOURS, First dose on Mon11/08/23 at 1315, Until Discontinued, Maximum dose of acetaminophen is 4,000 mg from all sources in 24 hours. When ordered for pain, acetaminophen should be given even when other ordered pain medications are indicated., Routine 1354 (Given - Provider: Melanie Delacruz RN)1818 (Given - Provider: Radha Sotelo RN - Comment: Pt stated he wanted to eat dinner first)211 (Not Given - Provider: Lona Baca RN - Reason: Patient/family refused) 0216 (Not Given - Provider: Lona Baca RN - Reason: Patient/family refused)0622 (Given - Provider: Lona Baca RN)1022 (Due - Provider: Jarad Lopez RN)1331 (Given - Provider: Jarad Lopez, CHILO) ceFAZolin (Ancef) 2 g vial attach to sodium chloride 0.9% 100 mL Mini-Bag Plus (COMPLETED) 2 g, Intravenous, GLUE JOINTER FEEDER TO O.R., 1 dose, On Mon11/08/23 at 0700, Administer over 30 Minutes, Day of Surgery (Day of Procedure), Indication for (Active or Suspected): Prophylaxis 0807 (New Bag - Provider: Fracny Back CRNA) erythromycin (Romycin) 5 mg/gram (0.5 %) ophthalmic ointment Right Eye, 4 TIMES DAILY, First dose on Mon11/08/23 at 1345, Until Discontinued, Use ~1 cm ribbon 1535 (Not Given - Provider: Opal Cadena RN - Reason: Medication not available)1819 (Given - Provider: Radha Sotelo RN - Comment: Pt stated he wanted to eat dinner first)2100 (Not Given - Provider: Lona Baca RN - Reason: Patient/family refused) 0811 (Given - Provider: Jarad Lopez, CHILO)1334 (Given - Provider: Jarad Lopez, CHILO) heparin (porcine) (5,000 units/1 mL) subcutaneous injection 5,000 Units (COMPLETED) 5,000 Units, Subcutaneous, GLUE JOINTER FEEDER TO O.R., 1 dose, On Mon11/08/23 at 0700, Day of Surgery (Day of Procedure), Routine 0659 (Given - Provider: Idalia Mar RN) heparin (porcine) (5,000 units/1 mL) subcutaneous injection 5,000 Units 5,000 Units, Subcutaneous, EVERY 8 HOURS SCHEDULED, First dose on Mon11/08/23 at 1600, Until Discontinued, Routine 1600 (Not Given - Provider: Opal Cadena RN - Reason: Patient/family refused)2200 (Not Given - Provider: Lona Baca RN - Reason: Patient/family refused - Comment: pt educated on medication) 0622 (Given - Provider: Lona Baca RN)1400 (Due) loratadine (Claritin) tablet 10 mg 10 mg, Oral, DAILY, First dose on Mon11/08/23 at 1600, Until Discontinued, Routine 1600 (Not Given - Provider: Opal Cadena RN - Reason: Patient/family refused) 0810 (Given - Provider: Jarad Lopez RN) sodium chloride 0.9 % (flush) (BD PosiFlush Normal Saline 0.9) flush 5 mL 5 mL, Intravenous, 2 TIMES DAILY, First dose on Mon11/08/23 at 2100, Until Discontinued, Recovery (Recovery-Hospital Unit), Routine 2119 (Given - Provider: Lona Baca RN) 0900 (Due) white petrolatum-mineral oiL ophthalmic ointment Right Eye, 2 TIMES DAILY, First dose on Mon11/08/23 at 1345, Until Discontinued 1345 (Not Given - Provider: Opal Cadena RN - Reason: Medication not available)2119 (Given - Provider: Lona Baca RN) 0900 (Due) Continuous Medication Order 11/07/2023 11/08/2023 11/09/2023 lactated ringers infusion (CANCELED) 1,000 mL, at 100 mL/hr, Intravenous, CONTINUOUS, Starting on Mon11/08/23 at 0700, Until Mon11/08/23 at 1413, Day of Surgery (Day of Procedure) 0745 (New Bag - Provider: Franyc Back CRNA)0814 (Anesthesia Volume Adjustment - Provider: Francy Back CRNA)0840 (Anesthesia Volume Adjustment - Provider: Russell Gutierrez CRNA)1011 (Anesthesia Volume Adjustment - Provider: Francy Back CRNA)1149 (Stopped - Provider: Francy Back CRNA) sodium chloride 0.9% infusion 1,000 mL, at 100 mL/hr, Intravenous, CONTINUOUS, Starting on Mon11/08/23 at 1245, Until Etelvina 11/09/23 at 1652, Recovery (Recovery-Hospital Unit) 1242 (New Bag - Provider: Melanie Delacruz RN) 1652 (Due: Stopped) PRN Medication Order 11/07/2023 11/08/2023 11/09/2023 BUpivacaine (pf) (Marcaine) (2.5 mg/mL) 0.25% injection (CANCELED) PRN, Starting on Mon11/08/23 at 1148, Until Etelvina 11/09/23 at 1652, Intra-Operative (Intra-Procedure), Routine 1148 (Given - Provider: Ej Sargent MD) lidocaine (Xylocaine) 1% (10 mg/mL) injection 3 mg 3 mg (0.3 mL), Subcutaneous, ONCE PRN, 1 dose, Starting on Mon11/08/23 at 1506, Until Etelvina 11/09/23 at 1652, for discomfort with PIV insertion, Recovery (Recovery-Hospital Unit), Routine ondansetron (pf) (Zofran) (2 mg/mL) injection 4 mg(Linked Group 1) 4 mg, Intravenous, EVERY 8 HOURS PRN, Starting on Mon11/08/23 at 1506, Until Etelvina 11/09/23 at 1652, Nausea, May repeat times one in 30 minutes if ineffective. If multiple antiemetics are ordered, use ondansetron first., Recovery (Recovery-Hospital Unit) ondansetron (Zofran) tablet 4 mg(Linked Group 1) 4 mg, Oral, EVERY 8 HOURS PRN, Starting on Mon11/08/23 at 1506, Until [place]elvina 11/09/23 at 1652, Nausea, Vomiting, If multiple antiemetics are ordered, use ondansetron first. PO Preferred. If patient unable to take PO, may give IV if ordered. May repeat times one in 45 minutes if ineffective., Recovery (Recovery-Hospital Unit), Routine prochlorperazine (Compazine) (5 mg/mL) injection 5 mg (CANCELED) 5 mg, Intravenous, EVERY 30 MIN PRN, 2 doses, Starting on Mon11/08/23 at 1206, Until Mon11/08/23 at 1413, Nausea, Vomiting, If multiple antiemetics ordered, use ondansetron first and if ineffective use prochlorperazine or haloperidoL second, PACU Recovery, Routine 1234 (Given - Provider: Melanie Delacruz RN) sodium chloride 0.9 % (flush) (BD PosiFlush Normal Saline 0.9) flush 5-20 mL 5-20 mL, Intravenous, EVERY 1 MIN PRN, Starting on Mon11/08/23 at 1506, Until Etelvina 11/09/23 at 1652, flush, Flush pertains to all indwelling lines. Flush per protocol found in the job aid using the link provided on this medication record., Recovery (Recovery-Hospital Unit), Routine Linked Groups Order Group 1: ondansetron (Zofran) tablet 4 mgJump to med 4 mg, Oral, EVERY 8 HOURS PRN, Starting on Mon11/08/23 at 1506, Until Etelv[place] 11/09/23 at 1652, Nausea, Vomiting, If multiple antiemetics are ordered, use ondansetron first. PO Preferred. If patient unable to take PO, may give IV if ordered. May repeat times one in 45 minutes if ineffective., Recovery (Recovery-Hospital Unit), Routine Or ondansetron (pf) (Zofran) (2 mg/mL) injection 4 mgJump to med 4 mg, Intravenous, EVERY 8 HOURS PRN, Starting on 11/08/23 at 1506, Until [place]elvina 11/09/23 at 1652, Nausea, May repeat times one in 30 minutes if ineffective. If multiple antiemetics are ordered, use ondansetron first., Recovery (Recovery-Hospital Unit) documented in this encounter Care Teams Surveillance Inspector Relationship Specialty Start Date End Date Bryson Alba MD [address] [place] [address] PCP - General Family Medicine 02/14/19 documented as of this encounter
--- OUTSIDE RECORDS SUMMARY | 2024-05-16 16:41 | XMS_ITS | Encounter Summary ---
Author Organization [facility] Address [address] [place] [address] Care Team Providers Care Ophthalmic Technician Name Role Phone Bryson Alba MD Primary Care Provider +1 [phone] Encounter Details Date Type Department Care Team (Late st Contact Info) Description 01/25/2023 Lab Requisition [facility] Pathology & Laboratory Medicine - [facility] [address] [place] [address] Outr Resulting Lab, Provider Social [...] Associated Diagnosis Comments PSA TOTAL, DIAGNOSTIC Routine 01/25/2023 9:40 EDT documented in this encounter Results * PSA TOTAL, DIAGNOSTIC (01/25/2023 9:40 EDT) PSA 5.5 <=6.5 ng/mL 01/25/2023 19:40 EDT [facility] Blood VENOUS BLOOD / Unknown 01/25/2023 9:40 EDT 01/25/2023 17:09 EDT Narrative [facility] - 01/25/2023 19:40 EDT NOTE: Serum PSA concentration should not be interpreted as absolute evidence for the presence or absence of malignant disease. Assayed on Siemens ADVIA Incuboomaur XPT using chemiluminescent technology.??Values obtained by using different assay methods cannot be used interchangeably. Provider Outr Resulting Lab CHEMISTRY & BLOOD GAS ORDERABLES [facility] [address] [place] [address] documented in this encounter Visit Diagnoses Not on filedocumented in this encounter Care Teams Ophthalmic Technician Relationship Specialty Start Date End Date Bryson Alba MD [address] [place] [address] PCP - General Family Medicine - Primary Care 09/14/21 documented as of this encounter
--- OUTSIDE RECORDS SUMMARY | 2024-05-16 16:41 | XMS_ITS | Encounter Summary ---
[place] [address] Care Team Providers Care Cut To Length Operator Name Role Phone Bryson Alba MD Primary Care Provider [phone] [phone] Encounter Details Date Type Department Care Team (Latest Contact Info) Description 11/14/2023 9:00 AM EDT [place] [id number] Malignant neoplasm of prostate Social History Tobacco Use Types Packs/Day Years Used Date Smoking Tobacco: Former Cigarettes Q uit: 1997 Smokeless Tobacco: Never Alcohol Use Standard Drinks/Week Comments Not Asked 0 (1 standard drink = 0.6 oz pur e alcohol) [facility] Inpatient Questions Answer Date Recorded Does Anyone [...] EDT Inhaled Oxygen Concentration - - Weight - - Height - - Body Mass Index - - documented in this encounter Progress Notes * David Ornelas RN - 11/14/2023 9:00 AM EDT Patient presents today for a voiding trial and catheter removal s/p RALP with bilateral nerve spare. The patient was given Keflex 500mg 1 by mouth. Abd soft, non distended. All incisions well approximated. Dermabond intact to all lap sites. No signs of infection noted. Pt c/o drainage around cath which persistently stains underwear, states have been present since surgery. Denies fever, chills, n/v, intolerable pain. Scant amount thin dark yellow/brownish drainage noted at meatus. No foul discharge, warmth, redness or swelling. Marked bruising noted to bilateral scrotum. No increased scrotal swelling. Dr. Martinez assessed & reassured pt no cause for concern. Procedure: 250ml normal saline instilled via lund catheter. Balloon deflated. Lund gently removed. Patient voided 275 ml's. FOS good. Kegals practiced at this time. Pt demonstrates proper understanding. All instructions and literature reviewed with patient. Patient verbalized understanding of instructions. Supplies given: Urinal, pt already has briefs, declined pads. PVR: 33ml measured in the supine position with the portable bladder scanner shortly after the patient had voided. David Ornelas RN documented in this encounter Plan of Treatment Upcoming Encounters Date Type Department Care Team (Late st Contact Info) Description 11/10/2022 11:59 PM EDT Anesthesia Event Main OR at [address] [phone] Jojo Salvador, [address] [place] [address] documented as of this encounter Visit Diagnoses Diagnosis Malignant neoplasm of prostate documented in this encounter Administered Medications Inactive Administered Medications - up to 3 most recent administrations Medication Order MAR Action Action Date Dose Rate Site cephALEXin (Keflex) capsule 500 mg 500 mg, Oral, ONCE, 1 dose, On Mon11/14/23 at 0915, Routine, Indication for (Active or Suspected): Prophylaxis Given 11/14/2023 8:56 AM EDT 500 mg documented in this encounter Care Teams Cut To Length Operator Relationship Specialty Start Date End Date Bryson Alba MD [address] [place] [address] PCP - General Family Medicine 02/14/19 documented as of this encounter
--- OUTSIDE RECORDS SUMMARY | 2024-05-16 16:41 | XMS_ITS | Clinical Summary ---
Author Organization [facility] Address [address] [place] [address] Care Team Providers Care Cathode Washer Name Role Phone Bryson Alba MD Primary Care Provider [phone] [phone] Encounters Date Type Department Care Team Description 04/23/2024 Lab Requisition [facility] Pathology & Laboratory Medicine - [facility] [address] [place] [address] Outr Resulting Lab, Provider from Last 3 Months Social History Tobacco Use Types Packs/Day Years Used Date Smoking Tobacco: Never Assessed Interpersonal Safety Answer Date Record ed Physically Hurt Never 06/09/2020 Verbally Threaten Not on file 06/09/2020 Sex and Gender Information Value Date Recorded Sex Assigned at Not on file Gender Identity Not on file Sexual Orientation Not on file Plan of Treatment Health Maintenance Due Date Last Done Comments Hepatitis C Screen 1950 RSV Immunization ( o r 60+ Years) (1 - 1-dose 60+ series) 2010 Fall Risk Screening 10/22/2015 COVID-19 Vaccine ( season) 2024 Procedures Procedure Name Priority Date/Time Associated Diagnosis Comments PSA TOTAL, DIAGNOSTIC Routine 04/23/2024 8:59 EDT from Last 3 Months Results * PSA TOTAL, DIAGNOSTIC (04/23/2024 8:59 EDT) PSA <0.1 <=6.5 ng/mL 04/23/2024 20:48 EDT [facility] Blood VENOUS BLOOD / Unknown 04/23/2024 8:59 EDT 04/23/2024 17:52 EDT Narrative [facility] - 04/23/2024 20:48 EDT NOTE: Serum PSA concentration should not be interpreted as absolute evidence for the presence or absence of malignant disease. Assayed on Siemens ADVIA Centaur XPT using chemiluminescent technology.??Values obtained by using different assay methods cannot be used interchangeably. Provider Outr Resulting Lab CHEMISTRY & BLOOD GAS ORDERABLES [facility] [address] [place] [address] from Last 3 Months Care Teams Cathode Washer Relationship Specialty Start Date End Date Bryson Alba MD [address] [place] [address] PCP - General Family Medicine - Primary Care 09/14/21
--- OUTSIDE RECORDS SUMMARY | 2024-05-16 16:41 | XMS_ITS | Encounter Summary ---
Author Organization [facility] Address [address] [place] [address] Care Team Providers Care Alterations Supervisor Name Role Phone Bryson Alba MD Primary Care Provider [phone] [phone] Encounter Details Date Type Department Care Team (Late st Contact Info) Description 01/04/2024 Lab Requisition [facility] Pathology & Laboratory Medicine - [facility] [address] [place] [address] Outr Resulting Lab, Provider Social [...] Associated Diagnosis Comments PSA TOTAL, DIAGNOSTIC Routine 01/04/2024 14:48 EDT documented in this encounter Results * PSA TOTAL, DIAGNOSTIC (01/04/2024 14:48 EDT) PSA <0.1 <=6.5 ng/mL 01/04/2024 22:59 EDT [facility] Blood VENOUS BLOOD / Unknown 01/04/2024 14:48 EDT 01/04/2024 21:58 EDT Narrative [facility] - 01/04/2024 22:59 EDT NOTE: Serum PSA concentration should not be interpreted as absolute evidence for the presence or absence of malignant disease. Assayed on Siemens ADVIA [employer]ic Riveraur XPT using chemiluminescent technology.??Values obtained by using different assay methods cannot be used interchangeably. Provider Outr Resulting Lab CHEMISTRY & BLOOD GAS ORDERABLES [facility] [address] [place] [address] documented in this encounter Visit Diagnoses Not on filedocumented in this encounter Care Teams Alterations Supervisor Relationship Specialty Start Date End Date Bryson Alba MD [address] [place], [place] [id number] PCP - General Family Medicine - Primary Care 09/14/21 documented as of this encounter
--- OUTSIDE RECORDS SUMMARY | 2024-05-16 16:41 | XMS_ITS | Encounter Summary ---
Author Organization [facility] Address [address] [place] [address] Care Team Providers Care Motor Vehicle Salesperson Name Role Phone Bryson Alba MD Primary Care Provider [phone] [phone] Encounter Details Date Type Department Care Team (Late st Contact Info) Description 05/13/2022 Lab Requisition [facility] Pathology & Laboratory Medicine - [facility] [address] [place] [address] Outr Resulting Lab, Provider Social [...] Associated Diagnosis Comments PSA TOTAL, DIAGNOSTIC Routine 05/13/2022 10:57 EDT documented in this encounter Results * PSA TOTAL, DIAGNOSTIC (05/13/2022 10:57 EDT) PSA 5.3 <=6.5 ng/mL 05/13/2022 19:46 EDT [facility] Blood VENOUS BLOOD / Unknown 05/13/2022 10:57 EDT 05/13/2022 18:45 EDT Narrative [facility] - 05/13/2022 19:46 EDT NOTE: Serum PSA concentration should not be interpreted as absolute evidence for the presence or absence of malignant disease. Assayed on Siemens ADVIA [facility] XPT using chemiluminescent technology.??Values obtained by using different assay methods cannot be used interchangeably. Provider Outr Resulting Lab CHEMISTRY & BLOOD GAS ORDERABLES [facility] [address] [place] [address] documented in this encounter Visit Diagnoses Not on filedocumented in this encounter Care Teams Motor Vehicle Salesperson Relationship Specialty Start Date End Date Bryson Alba MD [address] [place] [address] PCP - General Family Medicine - Primary Care 09/14/21 documented as of this encounter
--- OUTSIDE RECORDS SUMMARY | 2024-05-16 16:41 | XMS_ITS | Encounter Summary ---
Author Organization [facility] [place] [address] Care Team Providers Care Tin Can Laborer Name Role Phone Bryson Alba MD Primary Care Provider [phone] [phone] Reason for Visit * Auth/Cert (Routine) Specialty Diagnoses / Procedures Referred By Contac t Referred To Contact Diagnoses Malignant neoplasm of prostate Prostate Cancer Procedures PRO LAP, PROSTATECTOMY, RADICAL, W/NERVE SPARE PRO LAP, PELVIC LYMPHADENECTOMY LAPAROSCOPIC PROSTATECTOMY, ROBOTICS ASSISTED (WRVU 22.46) LAPAROSCOPY,WITH BILATERAL TOTAL PELVIC LYMPHADENECTOMY, ROBOTIC (WRVU 12) MODIFIER ROBOT,DAVINCI XI Danny Wray MD [facility] [address] [place] [address] [facility] Referral ID Status Reason Start Date Expiration Date Visits Re quested Visits Authorized [id number] 1 1 Encounter Details Date Type Department Care Team (Latest Contact Info) Description 11/08/2023 5:57 AM EDT - 11/09/2023 2:51 PM EDT Hospital Encounter [place] [address] Danny Wray MD [facility] [address] [place] [address] Malignant neoplasm of prostate Discharge Disposition: Home Social History Tobacco Use Types Packs/Day Years [...] Sign Reading Time Taken Comments Blood Pressure 108/68 11/09/2023 7:57 AM EDT Pulse 68 11/08/2023 4:17 PM EDT Temperature 36.7 ??C (98.1 ??F) 11/09/2023 7:57 AM ED T Respiratory Rate 16 11/09/2023 7:57 AM EDT Oxygen Saturation 99% 11/09/2023 7:57 AM EDT Inhaled Oxygen Concentration - - Weight 67.6 kg (149 lb) 11/08/2023 6:34 AM EDT Height 170.2 cm (5' 7) 11/08/2023 6:34 AM EDT Body Mass Index 23.34 11/08/2023 6:34 AM EDT documented in this encounter Discharge Summaries * Johanna Castle PA - 11/08/2023 2:57 PM EDT Discharge Summary Patient Name: Dylan Gilmore Patient Age: 73 y.o. Language: Syriac Race: White Ethnicity: Not nor Admit date: [...] TOTAL PELVIC LYMPHADENECTOMY (WRVU 12) MODIFIER ROBOT,SHARON NOVA 11/08/2023 Surgeon(s): Danny Wray MD Robertson, Christopher C, MD History of Presentation: (from pre-op H&P) Dylan Gilmore is a 73 y.o. 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 No recent changes to health status. Good erectile function, Prostate 120ccs Hospital Course: Patient was admitted to [facility] via the same day surgery program and [...] safe for discharge. Plan: - [place] 11/13, FU w/ Dr Wray in 2 weeks telehealth [...] longer draining. The number for questions is [phone] before 5 PM weekdays and [phone] after 5 PM and weekends. Medications: - [...] will be mailed to you. Please call [phone] (clinic number for appointments) to confirm date [...] 11/14/2023 9:00 AM UROLOGY, NURSE Urology at [facility] Arrive at: [place] [phone] 11/28/2023 10:20 AM Danny Wray MD Urology at [facility] Arrive at: Home [phone] Please do not come in for this visit. Your provider will call you at the number you provided. Follow-Up: Future Appointments Date Time Provider Department Center 11/14/2023 9:00 AM UROLOGY, NURSE [facility] 11/28/2023 10:20 AM Danny Wray MD [facility] Primary Care Provider: Bryson Alba MD [phone] Unexpected Findings: none Call your doctor if: [...] was managed by the Urology Team at [facility]. If you have any questions or concerns, please feel free to contact us. Provider Contact Information: Urology Clinic: [facility] (after business hours): Total time spent on discharge including srno-eh-vuva time, care coordination, and discharge summarypreparation:45 mins [...] longer draining. The number for questions is [phone] before 5 PM weekdays and [phone] after 5 PM and weekends. Medications: - [...] will be mailed to you. Please call [phone] (clinic number for appointments) to confirm date [...] Lopez RN - 11/09/2023 2:[address] [facility] Short Stay Unit Discharge Note All relevant [...] for consultation if issuepersists -David Zamorano MD Bailing Machine Operator * Melanie Delacruz RN - 11/08/2023 12:11 PM EDT Patient arrived from OR in bed, attached to monitors and alarms set appropriately for patient. VSS.Abdominal incisions c/d/I. 1301 Patient reporting it feels like something is in R eye, unable to keep eye open. Mild tearing. Omar Zamorano MD paged. [phone] - Report called to CHILO Joseph. Awaiting medication from pharmacy for corneal abrasion. visiting at bedside. documented in this encounter H&P Notes * Ej Sargent MD - 11/07/2023 3:16 PM EDT Patient Name: Dylan Gilmore Age: 73 y.o. 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 No recent changes [...] in a linear fashion. A 12 mm laboratory chemical assistant port was also inserted, through which AirSeal insufflation was established. A 5 mm laboratory chemical assistant port was inserted between the camera [...] the balloon was inflated. The 12 mm laboratory chemical assistant port was closed with a Roger-Thomasen [...] PM EDT Anesthesia Event Main OR at [address] [phone] [place] Jojo G, [address] [place] [address] documented as of this encounter Procedures Procedure Name Priority Date/Time Associated Diagnosis Comments SPECIMEN TO PATHOLOGY Routine 11/08/2023 11:25 AM EDT SPECIMEN TO PATHOLOGY Routine 11/08/2023 10:28 AM EDT SPECIMEN TO PATHOLOGY Routine 11/08/2023 9:43 AM EDT SURGICAL PATHOLOGY REPORT Routine 11/08/2023 9:42 AM EDT MODIFIER ROBOT,DAVINCI XI 11/08/2023 7:45 AM EDT Malignant neoplasm of prostate Lap, Pelvic Lymphadenectomy (45991) 11/08/2023 7:45 AM EDT Malignant neoplasm of prostate Lap, Prostatectomy, Radical, W/Nerve Spare ([id number]) 11/08/2023 7:45 AM EDT Malignant neoplasm of prostate LAPAROSCOPIC PROSTATECTOMY-UROL\ROBO TICS ASSISTED Routine 11/08/2023 6:00 AM EDT Malignant neoplasm of prostate LAPAROSCOPY W/ GAURAV TOTAL PELVIC LYMPH, ROBOTIC Routine 11/08/2023 6:00 AM EDT Malignant neoplasm of prostate documented in this encounter Results * Specimen to Pathology (11/08/2023 11:25 AM EDT) AP Specimen 11/08/2023 11:2 5 AM EDT 11/08/2023 11:26 AM EDT [facility] - 11/08/2023 11:26 AM EDT Specimen requisition ordered. ??Separate Pathology report to follow Danny Wray MD PATHOLOGY/CYTOLOGY ORDERABLES Performing Organization Address [facility] [place] [address] * Specimen to Pathology (11/08/2023 10:28 AM EDT) AP Specimen 11/08/2023 10:2 8 AM EDT 11/08/2023 10:28 AM EDT Narrative [facility] - 11/08/2023 10:28 AM EDT Specimen requisition ordered. ??Separate Pathology report to follow Danny Wray MD PATHOLOGY/CYTOLOGY ORDERABLES Performing Organization Address [facility] [place] [address] * Specimen to Pathology (11/08/2023 9:43 AM EDT) AP Specimen 11/08/2023 9:43 AM EDT 11/08/2023 9:43 AM EDT Narrative [facility] - 11/08/2023 9:43 AM EDT Specimen requisition ordered. ??Separate Pathology report to follow Danny Wray MD PATHOLOGY/CYTOLOGY ORDERABLES Performing Organization Address [facility] [place] [address] * (ABNORMAL) Surgical Pathology Report (11/08/2023 9:42 AM EDT) Pathologist [facility] Final Diagnosis ? Location: [facility]; [facility]; A The signing pathologist has (i) examined the relevant preparation(s) for the specimen(s) and (ii) rendered or confirmed the diagnosis(es). . ?Surgical Pathology DIAGNOSIS A - Bilateral pelvic lymph nodes, excision: ?Six lymph nodes, no evidence of malignancy (0/6). B - Left bladder neck margin, excision: ?No evidence of malignancy. 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 CR-0 Electronically signed by: ?Baron MCDUFFIE, Leopoldo Fuller Verified: ??11/23/2023 15:49 ??Pathologist Performed at: ??-[facility] Dept. of Pathology, [place] [address] Rip Machine Operator: Snehal Smith MD, AP, ??CLIA Certificate: [id number] SYNOPTIC Specimen ? Procedure: ??Radical prostatectomy Tumor [...] PHYSICIAN/A.P.P. FOLLOW UP . DISCUSSION Scanned slides: [id number] [id number] C10-1 [id number] C11-1 [id number] SPECIMEN(S) SUBMITTED A - Bilateral pelvic lymph nodes, excision B - Left bladder neck margin, excision C - Prostate, resection CLINICAL INFORMATION Prostate cancer SPECIMEN PROCESSING A - Labeled/Fixative: Bilateral pelvic lymph nodes, fresh. Quantity/Size: Two, 5.9 x 3.5 x 1.5 cm. Tissue Description: Adipose tissue with six lymph nodes measuring up to 3.5 x 1.2 x 0.6 cm. Chef De Froid sections in 9 cassettes as follows: ?A1: [...] left vas deferens. DIMENSIONS/WEIGHT Weight: 83.0 grams. [place] to base: 5.9 cm. Transverse: 6.5 cm. Anterior to posterior: 5.0 cm. Rt Seminal Vesicle: 2.5 x 2.0 x 1.0 cm. Lt Seminal Vesicle: 2.0 x 0.9 x 0.9 cm. Rt Vas Deferens: 2.6 x 0.7 x 0.7 cm. Lt Vas Deferens: 3.4 x 0.6 x 0.6 cm. PROSTATE Outer Surface: [place], nodular and irregularly shaped; 3.0 cm anterior [...] submitted in sequence as whole mount sections. Chef De Froid sections in 29 cassettes as follows: ?C1-C4: Bladder neck margin ?C5-C7: [place], from anterior to posterior ?C8-C20: Prostate cross-sections . SPECIMEN PROCESSING ?C21-C26: Prostate -seminal vesicle interface, from right to left ?C27: Bilateral vas deferens margins, en face ?C28: Chef [place] Froid right seminal vesicle ?C29: Chef [place] Froid left seminal vesicle ??aaw(A) 11/23/2023 3:49 PM EDT [facility] PROSTATIC STRUCTURE / Unknown 11/08/2023 9:42 AM EDT 11/08/2023 9:42 AM EDT Margin 11/08/2023 9:42 AM EDT 11/08/2023 9:42 AM EDT PROSTATIC STRUCTURE / Unknown 11/08/2023 9:42 AM EDT 11/08/2023 9:42 AM EDT Danny Wray MD PATHOLOGY/CYTOLOGY ORDERABLES [facility] [place] [address] documented in this encounter Visit Diagnoses Diagnosis [...] Given 11/08/2023 6:18 PM EDT 975 mg erythromycin (Romycin) 5 mg/gram (0.5 %) ophthalmic ointment Right Eye, 4 TIMES DAILY, First dose on Mon11/08/23 at 1345, Until Discontinued, Use ~1 cm ribbon Given 11/09/2023 1:34 PM EDT Given 11/09/2023 8:11 AM EDT Given 11/08/2023 6:19 PM EDT heparin (porcine) (5,000 units/1 mL) subcutaneous injection 5,000 Units 5,000 Units, Subcutaneous, SECURITY ASSURANCE ANALYST TO O.R., 1 dose, On Mon11/08/23 at [...] Pt stated he wanted to eat dinner first)2115 (Not Given - Provider: Lona Baca RN - Reason: Patient/family refused) 0216 (Not Given - Provider: Lona Baca RN - Reason: Patient/family refused)0622 (Given - Provider: Lona Baca RN)1022 (Due - Provider: Jarad Lopez RN)1331 (Given - Provider: Jarad Lopez RN) ceFAZolin (Ancef) 2 g vial attach to sodium chloride 0.9% 100 mL Mini-Bag Plus (COMPLETED) 2 g, Intravenous, SECURITY ASSURANCE ANALYST TO O.R., 1 dose, On Mon11/08/23 at 0700, Administer over 30 Minutes, Day of Surgery (Day of Procedure), Indication for (Active or Suspected): Prophylaxis 0807 (New Bag - Provider: Francy Back CRNA) erythromycin (Romycin) 5 mg/gram (0.5 [...] Jarad Lopez, CHILO)1334 (Given - Provider: Jarad Lopez RN) heparin (porcine) (5,000 units/1 mL) subcutaneous injection 5,000 Units (COMPLETED) 5,000 Units, Subcutaneous, SECURITY ASSURANCE ANALYST TO O.R., 1 dose, On Mon11/08/23 at [...] 2100, Until Discontinued, Recovery (Recovery-Hospital Unit), Routine 2120 (Given - Provider: Lona Baca RN) 0900 (Due) white petrolatum-mineral oiL ophthalmic ointment Right Eye, 2 TIMES DAILY, First dose on Mon11/08/23 at 1345, Until Discontinued 1345 (Not Given - Provider: Opal Cadena RN - Reason: Medication not available)2120 (Given - Provider: Lona Baca, CHILO) 0900 (Due) Continuous Medication Order 11/07/2023 11/08/2023 11/09/2023 lactated ringers infusion (CANCELED) 1,000 mL, at 100 mL/hr, Intravenous, CONTINUOUS, Starting on Mon11/08/23 at 0700, Until Mon11/08/23 at 1413, Day of Surgery (Day of Procedure) 0745 (New Bag - Provider: Francy Back CRNA)0814 (Anesthesia Volume Adjustment - Provider: [...] doses, Starting on Mon11/08/23 at 1206, Until 11/08/23 at 1413, Nausea, Vomiting, If multiple antiemetics [...] Unit) documented in this encounter Care Teams Tin Can Laborer Relationship Specialty Start Date End Date Bryson Alba MD [address] [place] [address] PCP - General Family Medicine 02/14/19 documented as of this encounter
--- OUTSIDE RECORDS SUMMARY | 2024-05-16 16:41 | XMS_ITS | Encounter Summary ---
Author Organization [facility] Address [address] [place] [address] Care Team Providers Care Tire Buster Name Role Phone Bryson Alba MD Primary Care Provider [phone] Encounter Details Date Type Department Care Team (Late st Contact Info) Description 04/23/2024 Lab Requisition [facility] Pathology & Laboratory Medicine - [facility] [address] [place] [address] Outr Resulting Lab, Provider Social [...] PSA TOTAL, DIAGNOSTIC Routine 04/23/2024 8:59 EDT documented in this encounter Results * PSA TOTAL, DIAGNOSTIC (04/23/2024 8:59 EDT) PSA <0.1 <=6.5 ng/mL 04/23/2024 20:48 EDT [facility] Blood VENOUS BLOOD / Unknown 04/23/2024 8:59 EDT 04/23/2024 17:52 EDT Narrative [facility] - 04/23/2024 20:48 EDT NOTE: Serum PSA concentration should not be interpreted as absolute evidence for the presence or absence of malignant disease. Assayed on Siemens ADVIA [employer] XPT using chemiluminescent technology.??Values obtained by using different assay methods cannot be used interchangeably. Provider Outr Resulting Lab CHEMISTRY & BLOOD GAS ORDERABLES [facility] [address] [place] [address] documented in this encounter Visit Diagnoses Not on filedocumented in this encounter Care Teams Tire Buster Relationship Specialty Start Date End Date Bryson Alba MD [address] [place], [place] [id number] PCP - General Family Medicine - Primary Care 09/14/21 documented as of this encounter
--- OUTSIDE RECORDS SUMMARY | 2024-05-16 16:41 | XMS_ITS | Continuity of Care Document ---
Author Organization [facility] Ambulatory Clinics Address [address] [place] [address] Care Team Providers Care Grocery Carrier Name Role Phone NATALIE CARTER MD Primary Care Physician Encounter [facility] NBR [id number] Date(s): 05/18/23 - 05/18/23 [facility] Ambulatory Clinics [address] [place], [place] [address] Encounter Diagnosis Prostate cancer(Discharge Diagnosis) - 05/18/23 Lower urinary tract symptoms(Discharge Diagnosis) - 05/18/23 Discharge Disposition: Home or Self Care Attending Physician: Andressa Sarkar MD Referring Physician: NATALIE CARTER MD Allergies, Adverse Reactions, Alerts Substance Reaction Severity Status tamsulosin Low blood pressure Unknown Active traZODone Headache Unknown Active Medications finasteride 5 mg oral tablet 5 mg = 1 tab, Oral, Daily, # 90 tab, 3 Refill(s) Start Date: 05/12/23 Status: Ordered Problem List Condition Confirmation Course Effective Dates Status Health St atus Informant BPH (benign prostatic hyperplasia) Confirmed Active Procedures Procedure Date Related Diagnosis Body Site Status Biopsy of prostate 10/27/22 Comple lauryn Results Laboratory List Name Date .Urinalysis POCT 05/18/23 Most recent to oldest [Reference Range]: 1 Method of Collect POC Clean Catch *NA* (05/18/23 9:03 AM) Specific [place], Ur POC 1.010 *NA* (05/18/23 9:03 AM) Specimen Color POC [Yellow] Yellow (05/18/23 9:03 AM) Glucose, Urine POC Negative mg/dL *NA* (05/18/23 9:03 AM) Bilirubin, Urine POC [Negative] Negative (05/18/23 9:03 AM) Ketones, Urine POC [Negative mg/dL] Nega tive mg/dL (05/18/23 9:03 AM) Blood, Urine POC [Negative] Negative (05/18/23 9:03 AM) pH, Urine POC 6.0 *NA* (05/18/23 9:03 AM) Protein, Urine POC [Negative mg/dL] Nega tive mg/dL (05/18/23 9:03 AM) Urobilinogen, Urine POC [0.2] 0.2 (05/18/23 9:03 AM) Nitrite, Urine POC [Negative] Negative (05/18/23 9:03 AM) Leuk Esterase, Urine POC [Negative] Nega tive (05/18/23 9:03 AM) Clarity, Urine POC [Clear] Clear (05/18/23 9:03 AM) Vital Signs Most recent to oldest [Reference Range]: 1 Peripheral Pulse Rate [60-100 bpm] 92 bp m (05/18/23 8:48 AM) Blood Pressure [90-140/60-90 mmHg] 126/6 8mmHg (05/18/23 8:48 AM) Mean Arterial Pressure, Cuff [65-140 mmH g] 87 mmHg (05/18/23 8:48 AM) Social History Social History Type Response Tobacco Former tobacco user Tobacco Use:. Sex Physician Outpatient Note * Andressa Sarkar MD: PERFORM Event Display: Office Clinic Note Physician Authored Date: [id number] EDILMA ALY :1950 Age:72 years Sex:Male Visit Date:05/18/2023 Primary Care Physician: NATALIE CARTER MD Chief Complaint New patient consultation-- prostate cancer History of Present Illness Mr. Aly is a pleasant 72 year-old man who presents today for a second opinion regarding his newly diagnosed prostate cancer.?? He was diagnosed with [place] 3+4=7 (grade group 2) prostate cancer in October 2022.? He underwent a CT abdomen/pelvis on 12/09/22; this did not show any lymphadenopathy.? He underwent a bone scan on 12/09/22; this did not show metastatic disease.? He saw Dr. Wray recently, who recommended RALP.? He underwent pelvic MRI on 05/10/23; this showed a 17 gm prostate with a PI-RADS 5 lesion.?? No extraprostatic disease was noted. ?? He has bothersome LUTS, with nocturia x 5-6 almost every night, and gets very little sleep.?? He voids about every 1-2h while awake.?? He has a variable urinary stream, but it is often slow.?? He does not strain to void.?? He feels he usually voids to completion.? He occasionally has urinary urgency.?? He has trialed tamsulosin, but did not tolerate it due to dizziness.? He also trialed Myrbetriq, but did not find it helpful.? He notes that if he drinks tomato juice or eats spicy food, he has even more trouble with his bladder and has more frequency. ? PSA: 05/13/22:? 5.3 (on finasteride) Physical Exam Vitals & Measurements HR:??92??(Peripheral)?? BP:??126/68?? SpO2:??99%?? GENERAL APPEARANCE:??alert and oriented in NAD; appropriate with good affect.??.?? NEURO:??grossly intact.?? HEENT:??NCAT; EOMI.?? NECK:??supple.?? CHEST:??symmetric excursions.?? ABDOMEN:??soft, NT, ND.?? MUSCULOSKELETAL:??good gait and station.?? EXTREMITIES:??no c/c/e??.?? BACK/SPINE:??no CVAT.?? :?? deferred Assessment/Plan Prostate cancer??C61 ASSESSMENT:?Mr. 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 His pelvic MRI did not show any extra-prostatic spread.?? He is scheduled for RALP with Dr. Wray in October 2023.? PLAN: 1. He was offered alfuzosin for LUTS; he notes that he does not tolerate medication very well in general, so he is not sure he would like to try it. 2. He will keep a voiding diary x 48h. 3. He will follow up when the voiding diary is complete. ? Problem List/Past Medical History Ongoing BPH (benign prostatic hyperplasia) Historical No qualifying data Procedure/Surgical History ???Biopsy of prostate (10/28/2022) Medications finasteride 5 mg oral tablet, 5 mg= 1 tab, Oral, Daily Allergies tamsulosin??(Low blood pressure) traZODone??(Headache) Social History Electronic Cigarette/Vaping Electronic Cigarette Use: Never. Tobacco Former tobacco user Tobacco Use:. Family History Alzheimer's disease: Mother. Heart disease: Father. Hyperlipidemia: Mother. Stroke: Mother and Father. Lab Results Test Name Test Result Date/Time Method of Collect POC Clean Catch 05/18/2023 09:03 EDT Specimen Color POC Yellow 05/18/2023 09:03 EDT Clarity, Urine POC Clear 05/18/2023 09:03 EDT Glucose, Urine POC Negative 05/18/2023 09:03 EDT Bilirubin, Urine POC Negative 05/18/2023 09:03 EDT Ketones, Urine POC Negative 05/18/2023 09:03 EDT Specific [place], Ur POC 1.010 05/18/2023 09:03 EDT pH, Urine POC 6.0 05/18/2023 09:03 EDT Protein, Urine POC Negative 05/18/2023 09:03 EDT Urobilinogen, Urine POC 0.2 05/18/2023 09:03 EDT Nitrite, Urine POC Negative 05/18/2023 09:03 EDT Blood, Urine POC Negative 05/18/2023 09:03 EDT Leuk Esterase, Urine POC Negative 05/18/2023 09:03 EDT Electronically Signed on 05/18/23 12:40 PM Andressa Sarkar MD Patient Care team information Care Team Personnel Name: NATALIE CARTER MD Position: No Access Member Role: Primary Care Physician Address: Address: [address] [place] [id number] [facility]
--- OUTSIDE RECORDS SUMMARY | 2024-05-16 16:41 | XMS_ITS | Encounter Summary ---
Author Organization [facility] Address [address] [place] [address] Care Team Providers Care Rehab Spec Name Role Phone Bryson Alba MD Primary Care Provider [phone] Encounter Details Date Type Department Care Team (Late st Contact Info) Description 08/07/2023 Lab Requisition [facility] Pathology & Laboratory Medicine - [facility] [address] [place] [address] Outr Resulting Lab, Provider Social [...] Associated Diagnosis Comments PSA TOTAL, DIAGNOSTIC Routine 08/07/2023 8:48 EST documented in this encounter Results * PSA TOTAL, DIAGNOSTIC (08/07/2023 8:48 EST) PSA 5.7 <=6.5 ng/mL 08/07/2023 17:59 EST [facility] Blood VENOUS BLOOD / Unknown 08/07/2023 8:48 EST 08/07/2023 16:52 EST Narrative [facility] - 08/07/2023 17:59 EST NOTE: Serum PSA concentration should not be interpreted as absolute evidence for the presence or absence of malignant disease. Assayed on Siemens ADVIA [employer] XPT using chemiluminescent technology.??Values obtained by using different assay methods cannot be used interchangeably. Provider Outr Resulting Lab CHEMISTRY & BLOOD GAS ORDERABLES [facility] [address] [place] [address] documented in this encounter Visit Diagnoses Not on filedocumented in this encounter Care Teams Rehab Spec Relationship Specialty Start Date End Date Bryson Alba MD [address] [place] [address] PCP - General Family Medicine - Primary Care 09/14/21 documented as of this encounter
--- OUTSIDE RECORDS SUMMARY | 2024-05-16 16:41 | XMS_ITS | Referral Summary ---
Author Organization [facility] Address [address] [place] [address] Care Team Providers Care District Service Manager Name Role Phone Bryson Alba MD Primary Care Provider [phone] Encounters Date Type Department Care Team Description 04/23/2024 Lab Requisition [facility] Pathology & Laboratory Medicine - [facility] [address] [place] [address] Outr Resulting Lab, Provider from [...] Orientation Not on file Plan of Treatment Not on file Procedures Procedure Name Priority Date/Time Associated Diagnosis Comments PSA TOTAL, DIAGNOSTIC Routine 04/23/2024 8:59 EDT from Last 3 Months Results * PSA TOTAL, DIAGNOSTIC (04/23/2024 8:59 EDT) PSA <0.1 <=6.5 ng/mL 04/23/2024 20:48 EDT [facility] Blood VENOUS BLOOD / Unknown 04/23/2024 8:59 EDT 04/23/2024 17:52 EDT Narrative [facility] - 04/23/2024 20:48 EDT NOTE: Serum PSA concentration should not be interpreted as absolute evidence for the presence or absence of malignant disease. Assayed on Siemens ADVIA [employer]aur XPT using chemiluminescent technology.??Values obtained by using different assay methods cannot be used interchangeably. Provider Outr Resulting Lab CHEMISTRY & BLOOD GAS ORDERABLES [facility] [address] [place] [address] from Last 3 Months Care Teams District Service Manager Relationship Specialty Start Date End Date Bryson Alba MD [address] [place] [address], [place] [address] PCP - General Family Medicine - Primary Care 09/14/21
--- OUTSIDE RECORDS SUMMARY | 2024-05-16 16:41 | XMS_ITS | Encounter Summary ---
Author Organization [facility] [place] [address] Care Team Providers Care Manager Client Support Name Role Phone Bryson Alba MD Primary Care Provider [phone] [phone] Encounter Details Date Type Department Care Team (Late st Contact Info) Description 11/28/2023 10:20 AM EDT TH Visit (TeleHealth) [place] [id number] Danny Wray MD [facility] [place] [address] Malignant neoplasm of prostate Social History Tobacco Use Types Packs/Day Years Used Date Smoking Tobacco: Former Cigarettes Q uit: 1998 Smokeless Tobacco: Never Alcohol Use Standard Drinks/Week Comments Not Asked 0 (1 standard drink = 0.6 oz pur e alcohol) [facility] Inpatient Questions Answer Date Recorded Does Anyone [...] Progress Notes * Danny Wray MD - 11/28/2023 10:20 AM EDT Urologic Oncology Clinic Note Date of Service: November 28, 2023 Name: Dylan Gilmore : 1950 CC: Prostate cancer HPI: Dylan Gilmore is a 73 y.o. old male with a history of prostate cancer status post robotic-assisted laparoscopic prostatectomy with bilateral PLND on 10/2023. Overall he is recovering well, expected post-op pain. He has some post-void dribble. 2PPD Physical Exam: Telehealth Assessment: # Prostate cancer, pT2N0, Grade Group 2, Margin negative s/p RALP / PLND Plan: # PSA in 3 months ([facility]) TOV # Reinforced Kegel excercises 20 minutes spent in counseling and coordination of care documented in this encounter Plan of Treatment Upcoming Encounters Date Type Department Care Team (Late st Contact Info) Description 11/10/2022 11:59 PM EDT Anesthesia Event Main OR at [address] [phone] Jojo Salvador, [address] [address] Scheduled Orders Name Type Priority Associated Diagnoses Orde r Schedule PSA (Ultrasensitive) Lab Routine Malignant neoplasm of prostate Expected: 02/26/2024 (Approximate), Expires: 08/27/2024 documented as of this encounter Visit Diagnoses Diagnosis Malignant neoplasm of prostate documented in this encounter Care Teams Manager Client Support Relationship Specialty Start Date End Date Bryson Alba MD [address] [place] [address] [address] [facility] [address] [place] [address] PCP - General Family Medicine 02/14/19 documented as of this encounter
--- OUTSIDE RECORDS SUMMARY | 2024-05-16 16:41 | XMS_ITS | Continuity of Care Document ---
Author Organization [facility] Ambulatory Clinics Address [address] [place] [address] Care Team Providers Care Groover And Turner Name Role Phone NATALIE CARTER MD Primary Care Physician [phone] Encounter [facility] NBR [id number] Date(s): 06/27/23 - 06/27/23 [facility] Ambulatory Clinics [address] [place], [place] [address] Encounter Diagnosis Nocturnal polyuria(Discharge Diagnosis) - 06/27/23 Prostate cancer(Discharge Diagnosis) - 06/27/23 Lower urinary tract symptoms(Discharge Diagnosis) - 06/28/23 Discharge Disposition: Home or Self Care Attending [...] Informant BPH (benign prostatic hyperplasia) Confirmed Active Prostate cancer Confirmed Active Nocturnal polyuria Confirmed Active Procedures Procedure Date Related Diagnosis Body Site Status Biopsy of prostate 10/27/22 Comple lauryn Vital Signs Most recent to oldest [Reference Range]: 1 Peripheral Pulse Rate [60-100 bpm] 75 bp m (06/27/23 2:36 PM) Blood Pressure [90-140/60-90 mmHg] 112/6 8mmHg (06/27/23 2:36 PM) Mean Arterial Pressure, Cuff [70-110 mmH g] 83 mmHg (06/27/23 2:36 PM) Social History Social History Type Response Tobacco Former tobacco user Tobacco Use:. Sex Physician Outpatient Note * Andressa Sarkar MD: PERFORM Event Display: Office Clinic Note Physician Authored Date: [id number] EDILMA ALY :1950 Age:72 years Sex:Male Visit Date:06/27/2023 Primary Care Physician: NATALIE CARTER MD Chief Complaint Follow-up for prostate cancer and LUTS History of Present Illness Mr. Aly is a pleasant 72 year-old man who presents today for follow-up of bothersome lower urinary tract symptoms in the context of prostate cancer. ? He was diagnosed with?? [place] 3+4=7 (grade group 2) prostate cancer in October 2022.? He underwent a CT abdomen/pelvis on 12/09/22; this did not show any lymphadenopathy.? He underwent a bone scan on 12/09/22; this did not show metastatic disease.? He saw Dr. Wray recently, who recommended RALP.? He is on the schedule for October 2023.? He underwent pelvic MRI on 05/10/23; this [...] but did not find it helpful.? He underwent a voiding diary last week.?? This showed?? nocturnal polyuria, with 42-47% of his 24h urine volume being made during hours of sleep.?? He is adamant that he does not have sleep apnea, and does not want to a referral for sleep medicine.? His daytime voids were low volume (150-200 mL); His nighttime voids were in the 225-275 mL range). ?? He notes that if he drinks tomato juice or eats spicy food, he has even more trouble with his bladder and has more frequency. ? PSA: 05/13/22:? 5.3 (on finasteride) Physical Exam Vitals & Measurements HR:??75??(Peripheral)?? BP:??112/68?? SpO2:??99%?? GENERAL APPEARANCE:??alert and oriented in NAD; appropriate with good affect.??.?? NEURO:??grossly intact.?? HEENT:??NCAT; EOMI.?? NECK:??supple.?? CHEST:??symmetric excursions.?? ABDOMEN:??soft, NT, ND.?? MUSCULOSKELETAL:??good gait and station.?? EXTREMITIES:??no c/c/e??.?? BACK/SPINE:??no CVAT.?? :??deferred. Assessment/Plan 1.??Nocturnal polyuria??R35.81 2.??Prostate cancer??C61 ASSESSMENT:?Mr. 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 His pelvic MRI did not show any extra-prostatic spread.?? He is scheduled for RALP with Dr. Wray in October 2023.? He has bothersome LUTS and nocturia, and his voiding diary showed small voided volumes and nocturnal polyuria.?? He has failed Myrbetriq, and did nottolerate tamsulosin due to dizziness.? PLAN: 1. He was offered alfuzosin for LUTS; he??does??want to proceed with this. 2. He??does appear to have nocturnal polyuria on his voiding diary, but does not want to pursue a sleep medicine consult at this time. 3. He??was encouraged to keep his upcoming appointments with [facility]. ? Problem List/Past Medical History Ongoing BPH (benign prostatic hyperplasia) Nocturnal polyuria Prostate cancer Historical No qualifying data Procedure/Surgical History ???Biopsy of prostate (10/28/2022) Medications finasteride 5 mg oral tablet, 5 mg= 1 tab, Oral, Daily Allergies tamsulosin??(Low blood pressure) traZODone??(Headache) Social History Electronic Cigarette/Vaping Electronic Cigarette Use: Never. Tobacco Former tobacco user Tobacco Use:. Family History Alzheimer's disease: Mother. Heart disease: Father. Hyperlipidemia: Mother. Stroke: Mother and Father. Electronically Signed on 06/28/23 09:07 AM Andressa Sarkar MD Patient Care team information Care Team Personnel Name: NATALIE CARTER MD Position: No Access Member Role: Primary Care Physician Address: Address: [address] [place] [phone] [facility]
--- OUTSIDE RECORDS SUMMARY | 2024-05-16 16:42 | XMS_ITS | Encounter Summary ---
[place] [address] Care Team Providers Care Clinic Charge Nurse Name Role Phone Bryson Alba MD Primary Care Provider [phone] Reason for Referral * Diagnostic Test (Routine) - Closed Specialty Diagnoses / Procedures Referred By Contac t Referred To Contact Radiology Diagnoses Malignant neoplasm of prostate Procedures MRI Pelvis wwo (Prostate) Danny Wray MD [facility] [address] [place] [address] [place] [address] Referral ID Status Reason Start Date Expiration Date V isits Requested Visits Authorized [id number] Closed Specialty Service Requested 03/28/2023 09/25/2024 1 1 Reason for Visit * Reason Onset Date Comments Prostate Cancer 03/28/2023 Encounter Details Date Type Department Care Team (Late st Contact Info) Description 03/28/2023 9:00 AM EDT TH Visit (TeleHealth) [place] [address] Danny Wray MD [facility] [address] [place] [address] Malignant neoplasm of prostate; Prostate cancer Social History Tobacco Use Types Packs/Day Years Used Date Smoking Tobacco: Former Cigarettes Q uit: 1997 Smokeless Tobacco: Never Alcohol Use Standard Drinks/Week Comments Not Asked 0 (1 standard drink = 0.6 oz pur e alcohol) Sex and Gender Information Value Date Recorded Sex Assigned at Not on file Gender Identity Not on file Sexual Orientation Not on file documented as of this encounter Patient Instructions * Patient Instructions* Danny Wray MD - 03/28/2023 9:00 AM EDT Prostatectomy Patient Instructions Instructions Prior to Surgery Please stop taking any over the counter supplements one week before surgery. If you are on any blood thinners such as: Coumadin, Plavix, Aspirin, or Xarelto PLEASE check with the Urology Clinic if you did not receive any instructions on discontinuing them prior to surgery. Day Prior to Surgery Please shower 24 hours before AND the night before surgery. Please use a Chlorhexidene based antiseptic soap such as Hibiclens. You can buy Hibiclens over the counter at your pharmacy without a prescription or you can obtain it from the [facility] Same day program on the day of your preoperative visit. Bowel Preparation Purchase one Fleets enema and take it the evening before surgery. Please take only clear liquids by mouth from noon the day before surgery. Continue to drink plenty of clear liquids to remain well hydrated for the remainder of the day and evening Please take nothing by mouth from 2 hours before the time you have been told to report to the hospital. If you have any questions please call the [facility] at or documented in this encounter Progress Notes * Danny Wray MD - 03/28/2023 9:00 AM EDT Images from the original note were not included. Patient Name: Dylan Gilmore Date of Service: 03/28/2023 Referring Provider: Unknown None Primary Care Provider: Bryson Alba MD HPI: Dylan Gilmore is a 72 y.o. y/o male here who presents today for evaluation of his newly diagnosed intermediate risk prostate cancer. He has a history of severe LUTS and has seen Dr. Gonzales and Dr. Goodman in the past. Per Dr. Rao recent note 09/01/2022 Denies dysuria or hematuria or urinary incontinence. He is currently taking finasteride. Did not tolerate alpha blockers due to hypotension IPSS score 14/35 (07/20/2///07/20); QOL 4/6. Uroflow: Qmax 15ml/s, Qavg 8ml/s, Voiding Time 17s, Time to Qmax 4s, Voided Volume 130ml PVR = 38mL Prostate size on CT was measured as 121cc. (2019) He has never had a prostate biopsy Last PSA 6 (Range 5-10 for years) on finasteride No reported bowel issues. Patient is currently not on any anticoagulation. PSA History: 05/13/22 - 5.3 (while on finasteride) Pathology Results / Location: TRUS bx 10/27/22 Gl 3+4 x 1 (<5% pattern 4) Gl 3+3 x 1 2 other cores with focal pattern 3 (<1%) and 4 (<5%) Pertinent Imaging Studies: TRUS 10/27/22 - 73cc gland No hypoechoic areas Bone scan 12/09/22 - Increased uptake @ T7 CT A/P 12/09/22 - No LAD Enlarged prostate He is here to discuss treatment options. PMhx / PSHx reviewed: Family History: There is no family history of prostate cancer or other urologic malignancies that he knows of. Social History: Social History Tobacco Use Smoking status: Former Types: Cigarettes Quit date: 1997 Years since quittin.7 Smokeless tobacco: Never Vaping Use Vaping Use: Never used Substance Use Topics Drug use: Never Medications: Reviewed in EMR Allergies: Reviewed in EMR Systems review: No data to display Physical Exam: Vital Signs are reviewed. The patient appears healthy and in no distress. Lab: Pertinent lab values are reviewed in the EMR and are per the HPI above. These were reviewed with the patient. Impression: #1: Intermediate risk prostate cancer (Osman 3+4, PSA 5.7 on finasteride, cT1c) #2: Severe LUTS #3: Large gland (>100cc) Plan: # Favor RALP given severity of symptoms # Surgery (RALP / PLND) vs Radiation +TURP, he is leaning towards surgery but would like this in the spring # Will obtain mpMRI for local staging # He is aware of the risk. Though low, of missing cure window with delayed treatment and is comfortable with proceeding per above I had a very lengthy and thorough discussion with Dylan Gilmore regarding the characteristics of his cancer and the risks, benefits, rationale, implications and alternatives of the various management options. We either discussed this visit or previously or I gave access via [facility] to the below counseling information We spent the bulk of our time discussing three major options, which include radical prostatectomy, radiation therapy, and active surveillance with delayed curative intent. We discussed the rationale of radical prostatectomy performed via either a robotic or open technique. The concepts of the surgery are removal of the pelvic lymph nodes and prostate, with nerve-sparing as deemed appropriate. These have both diagnostic and therapeutic intent. When performed robotically it is through six small incisions and a 2.5 - 4 hour surgery associated with minimal blood loss, an overnight hospital stay, and 5-7 days of Blank catheterization. Major risks of the surgery are rare but do include bleeding, infection, adjacent organ injury, lymphocele, positive margins, severe pain and standard operative risks such as myocardial infarction, stroke, DVT, pneumonia, PE and even a 0.2% chance of . We also discussed urinary incontinence following surgery. Approximately 10-20% of men will have nearly complete control of their urination when the catheter is removed, the median time to recovery is approximately 3-4 months but can take up to 12-18 months. Based on national data, approximately 85-90% of men will have control good urinary control at 2 years (may require safety pad etc. but are generally happy with voiding). In regards to sexual function, I explained the median time to recovery of functional erections is 6-8 months but can take up to 18 months. At 18 months following surgery, approximately 50% of men with quality erections prior to surgery who undergo aggressive bilateral nerve-sparing will have functional erections with or without medical therapy. Following surgery the PSA is expected to remain undetectable but if it does rise there is the possibility of salvage curative radiation therapy, if deemed appropriate. We also discussed the rationale of radiation therapy, which can be delivered via brachytherapy, external beam radiation therapy, or proton beam therapy. There is an excellent track record of success but can be associated with potential side effects which include urinary urgency, frequency, urethralstricture as well as the potential for erectile dysfunction and rectal irritation or frequency of jl wel movements. I explained there is an approximately 2% chance of serious bladder or rectal toxicity as well as a very low risk of inducing a secondary malignancy. The potential downside of radiationis the lack of complete pathologic review and lack of reliable salvage curative options. Active surveillance was described as a reasonable management strategy which has been associated with excellent short and intermediate term cancer control. The concept is to closely follow the cancer and intervene as needed at any meaningful sign of increased tumor volume or increased grade. Severalstudies have suggested delayed treatment has been associated with similar oncologic outcomes to immediate treatment in properly selected patients. Approximately 5% of patients per year require an intervention and discontinue active surveillance. 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 He understands there is a low but real chance of missing his window of curative opportunity. Lastly we discussed the rationale of a re-biopsy of his prostate if he is interested in this approach since approximately 20-30% of patients will have higher grade or higher volume disease which exclude them from considering active surveillance. At the completion of our discussion, multiple questions were answered to the best of my ability. Heappears to be very well informed about his cancer as well as the options. I explained to him there is no murguia in making a decision, and the most important thing is that he feels comfortable and educated regarding his options and ultimate choice. I answered all the patient's questions to the best of my ability and he is satisfied with the plan as outlined above. I will be in touch with him regarding the above details and he knows that he can contact me at any time with any questions or concerns. Patient verbally consents to this telephone visit [...] PM EDT Anesthesia Event Main OR at [address] [address] Jojo Salvador, [address] [place] [address] documented as of this encounter Results * MRI Pelvis wwo (Prostate) (05/10/2023 5:46 PM EDT) Anatomical Region Laterality Modality Pelvis Magnetic Resonan ce Impressions 05/12/2023 8:42 AM EDT Lesion 1 TZ: PI-RADS 5. Clinically significant cancer is highly likely to be present. T2 location: axial series 8001, image 21; sagittal ??series 10,001, image 13. Segmented in UroNav. PI-RADS v2.1 Assessment Categories PI-RADS 1 -- Very low (clinically significant cancer is highly unlikely to be present) PI-RADS 2 -- Low (clinically significant cancer is unlikely to be present) PI-RADS 3 -- Intermediate (the presence of clinically significant cancer is equivocal) PI-RADS 4 -- High (clinically significant cancer is likely to be present) PI-RADS 5 -- Very high (clinically significant cancer is highly likely to be present) References: Ismael S1, Gloria JH1, Morris S1, Damico C1, Arguelles J1, Rashid M1, Gold S1, Lundberg G1, Raycindy K1, Nadir MJ1, Corey BJ1, Richard PA1, Vitaly PL1, Saqib B1. ??A Grading System for the Assessment of Risk of Extraprostatic Extension of Prostate Cancer at Multiparametric MRI. Radiology. 2019 Sep;290(3):709-719. doi: 10.1148/radiol.1959536052. Epub 2018Aug 07. Thank you for letting us participate in the care of this patient. ??If you are a health care provider and have any questions regarding this report, please contact the number below. ??For patients who have questions please contact the health health care specialist that requested your imaging first. ? Narrative 05/12/2023 8:42 AM EDT EXAMINATION: MRI PELVIS WWO (PROSTATE) CLINICAL HISTORY: Prostate Cancer Staging REASON FOR PROSTATE EXAM: HAS PATIENT HAD PREVIOUS BIOPSY?:Yes,10/2022 MOST RECENT PSA LEVEL:5.3 on finasteride OSMAN SCORE:3+4 TECHNIQUE: Multiparametric MRI of the prostate prior to and following IV administration of 13 cc of Dotarem contrast. ?? QUALITY: Meets PI-RADS technical criteria. COMPARISON: None FINDINGS: Prostate dimensions: 5.4 x 5.4 x 5.3cm. Estimated prostate volume: 17cc (X x Y x Z x 0.52) PSA density: 0.07 (PSA/prostate volume >0.15 susp, 0.25 highly susp) Peripheral zone: T2: Uniform high signal intensity . No focal lesions. Combined PI-RADs: 1. Transition zone: Lesion 1. Posterior left mid gland T2: non-circumscribed, homogeneous, moderately hypointense, 2 x 1.1 cm axially, 1.8 cm craniocaudally. PI-RADs: 5. DWI: ??Moderately hypointense of ADC and moderately hyperintense on high b-value DWI. PI-RADs: 3. DCE-MRI: ??(+) focal early enhancement which corresponds to the suspicious finding on T2WI and/or DWI. ? Combined PI-RADs: 5. Extraprostatic disease: Seminal vesicle involvement:No Lymphadenopathy:No Sphincter involvement:No Bladder involvement:No Osseous metastases: No . MRI-derived Extraprostatic extension risk: None Other findings: None. Procedure Note Antwan Santo MD - 05/12/2023 EXAMINATION: MRI PELVIS WWO (PROSTATE) CLINICAL HISTORY: Prostate Cancer Staging REASON FOR PROSTATE EXAM: HAS PATIENT HAD PREVIOUS BIOPSY?:Yes,10/2022 MOST RECENT PSA LEVEL:5.3 on finasteride OSMAN SCORE:3+4 TECHNIQUE: Multiparametric MRI of the prostate prior to and following IV administration of 13 cc of Dotarem contrast. QUALITY: Meets PI-RADS technical criteria. COMPARISON: None FINDINGS: Prostate dimensions: 5.4 x 5.4 x 5.3cm. Estimated prostate volume: 17cc (X x Y x Z x 0.52) PSA density: 0.07 (PSA/prostate volume >0.15 susp, 0.25 highly susp) Peripheral zone: T2: Uniform high signal intensity . No focal lesions. Combined PI-RADs: 1. Transition zone: Lesion 1. Posterior left mid gland T2: non-circumscribed, homogeneous, moderately hypointense, 2 x 1.1 cmaxially, 1.8 cm craniocaudally. PI-RADs: 5. DWI: Moderately hypointense of ADC and moderately hyperintense on highb-value DWI. PI-RADs: 3. DCE-MRI: (+) focal early enhancement which corresponds to thesuspicious finding on T2WI and/or DWI. Combined PI-RADs: 5. Extraprostatic disease: Seminal vesicle involvement:No Lymphadenopathy:No Sphincter involvement:No Bladder involvement:No Osseous metastases: No . MRI-derived Extraprostatic extension risk: None Other findings: None. IMPRESSION Lesion 1 TZ: PI-RADS 5. Clinically significant cancer is highly likely joy present. T2 location: axial series 8001, image 21; sagittal ruxifm20,001, image 13. Segmented in UroNav. PI-RADS v2.1 Assessment Categories PI-RADS 1 -- Very low (clinically significant cancer is highly unlikely joy present) PI-RADS 2 -- Low (clinically significant cancer is unlikely to bepresent) PI-RADS 3 -- Intermediate (the presence of clinically significant canceris equivocal) PI-RADS 4 -- High (clinically significant cancer is likely to bepresent) PI-RADS 5 -- Very high (clinically significant cancer is highly likely joy present) References: Ismael S1, Gloria JH1, Caceres S1, Damico C1, Arguelles J1, Czarniecki M1,Gold S1, Lundberg G1, Rayn K1, Nadir MJ1, Corey BJ1, Ramos PA1, Vitaly PL1, Saqib B1.A Grading System for the Assessment of Risk of Extraprostatic Extension of Prostate Cancer at Multiparametric MRI. Radiology. 2019Mar;290(3):709-719. doi: 10.1148/radiol.8863220041. Epub 2018Aug 07. Thank you for letting us participate in the care of this patient. If youare a health care provider and have any questions regarding this report,please contact the number below. For patients who have questions please contactthe health health care specialist that requested your imaging first. Danny Wray MD IMG MRI ORDERABLES documented in this encounter Visit Diagnoses Diagnosis Malignant neoplasm of prostate Prostate cancer Malignant neoplasm of prostate Malignant neoplasm of prostate documented in this encounter Care Teams Clinic Charge Nurse Relationship Specialty Start Date End Date Bryson Alba MD [address] [place] [address] PCP - General Family Medicine 02/14/19 documented as of this encounter
--- OUTSIDE RECORDS SUMMARY | 2024-05-16 16:42 | XMS_ITS | Encounter Summary ---
Author Organization [facility] [place] [address] Care Team Providers Care Crop Quantitative Geneticist Name Role Phone Bryson Alba MD Primary Care Provider [phone] Encounter Details Date Type Department Care Team (Late Contact Info) Description 12/09/2022 Ancillary Procedure Radiology Library [place] [phone] Ayo Teran MD [address] [place] [address] DR RADIATION ONCOLOGY [place], [place] [id number] Social History Tobacco Use Types Packs/Day Years Used Date Smoking Tobacco: Former Cigarettes Q uit: 1998 Smokeless Tobacco: Never Alcohol Use Standard Drinks/Week Comments Not Currently 0 (1 standard drink = 0.6 oz pur e alcohol) Sex and Gender Information Value Date Recorded Sex Assigned at Not on file Gender Identity Not on file Sexual Orientation Not on file documented as of this encounter Plan of Treatment Upcoming Encounters Date Type Department Care Team (Late st Contact Info) Description 11/10/2022 11:59 PM EDT Anesthesia Event Main OR at [address] [phone] Jojo Salvador, [address] [place] [address] documented as of this encounter Procedures Procedure Name Priority Date/Time Associated Diagnosis Comments FILM LIBRARY STORAGE ONLY CT ABDOMEN AND PELVIS Routine 12/09/2022 12:00 AM EDT documented in this encounter Results * Film Library- Storage Only CT Abdomen & Pelvis (12/09/2022 12:00 AM EDT) Narrative [facility] - 12/13/2022 9:52 PM EDT This exam is auto-finalizing. It's purpose is for storage only. Ayo Teran MD IMG FILM LIBRARY ORD ERABLES Performing Organization Address City/State/[facility] Co de Phone Number [place], [place] documented in this encounter Visit Diagnoses Not on filedocumented in this encounter Care Teams Crop Quantitative Geneticist Relationship Specialty Start Date End Date Bryson Alba MD [address] [place] [address] PCP - General Family Medicine 02/14/19 documented as of this encounter
--- OUTSIDE RECORDS SUMMARY | 2024-05-16 16:42 | XMS_ITS | Encounter Summary ---
Author Organization [facility] [place] [address] Care Team Providers Care Jewelry Engraver Name Role Phone Sarmad Arrington MD Primary Care Provider [phone] Encounter Details Date Type Department Care Team (Late st Contact Info) Description 01/21/2019 Ancillary Procedure Radiology Library at [facility] [place] [phone] Sarmad Arrington MD [address] [place], [place] [address] Social History Tobacco Use Types Packs/Day Years [...] PM EDT Anesthesia Event Main OR at [address] [phone] Jojo Salvador, [address] [place] [address] documented as of this encounter Procedures Procedure Name Priority Date/Time Associated Diagnosis Comments FILM LIBRARY STORAGE ONLY CT ABDOMEN AND PELVIS Routine 01/21/2019 12:00 AM EDT documented in this encounter Results * Film Library- Storage Only CT Abdomen & Pelvis (01/21/2019 12:00 AM EDT) Narrative [facility]O DELGADILLO - 02/14/2019 12:27 PM EDT This exam is auto-finalizing. It's purpose is for storage only. Sarmad Arrington MD IMG FILM LIBRARY ORD ERABLES [place], [place] documented in this encounter Visit Diagnoses Not on filedocumented in this encounter Care Teams Jewelry Engraver Relationship Specialty Start Date End Date Sarmad Arrington MD [address] [place] [address] PCP - General Family Medicine 11/25/17 02/13/19 documented as of this encounter
--- OUTSIDE RECORDS SUMMARY | 2024-05-16 16:42 | XMS_ITS | Encounter Summary ---
Author Organization [facility] [place] [address] Care Team Providers Care International Organizer Name Role Phone Bryson Alba MD Primary Care Provider [phone] Encounter Details Date Type Department Care Team (Latest Contact Info) Description 05/10/2023 Travel Social History Tobacco Use Types Packs/Day [...] PM EDT Anesthesia Event Main OR at [address] [address] Jojo Salvador, [address] [place] [address] documented as of this encounter Visit Diagnoses Not on filedocumented in this encounter Care Teams International Organizer Relationship Specialty Start Date End Date Bryson Alba MD [address] [place] [address] PCP - General Family Medicine 02/14/19 documented as of this encounter
--- OUTSIDE RECORDS SUMMARY | 2024-05-16 16:42 | XMS_ITS | Encounter Summary ---
Author Organization [facility] Address [facility] [place] [address] Care Team Providers Care Haunted History Tour Guide Name Role Phone Bryson Alba MD Primary Care Provider [phone] Encounter Details Date Type Department Care Team (Late st Contact Info) Description 05/11/2023 [place] [phone] Danny Wray MD [facility] [place] [address] Social History Tobacco Use Types Packs/Day Years [...] on file documented as of this encounter Miscellaneous Notes * Telephone Encounter - Danny Wray MD - 05/15/2023 5:01 PM EDT I called to review his MRI which shows a PI-RADS 5 lesion without any evidence of extraprostatic extension or lymphadenopathy. We reviewed options of radical prostatectomy versus outlet surgery followed by radiation and androgen deprivation. At this point he is still interested in radical prostatectomy although for scheduling he prefer to do it in October. I think this is very reasonable however I did discuss with him that any delay in treatment does carry a theoretical risk of missing our window for cure but generally speaking with intermediate risk prostate cancer I think that risk is exceptionally low. I will plan to see him back in July or August for preoperative visit. * Telephone Encounter - Yue Berman - 05/12/2023 2:18 PM EDT Patient is calling for test results * Telephone Encounter - Nick Bain - 05/11/2023 10:57 AM EDT Patient calling requesting his MRI Results. Please Call to Advise. documented in this encounter Plan of Treatment Upcoming Encounters Date Type Department Care Team (Late st Contact Info) Description 11/10/2022 11:59 PM EDT Anesthesia Event Main OR at [address] [phone] Jojo Salvador [address] [place] [address] documented as of this encounter Visit Diagnoses Not on filedocumented in this encounter Care Teams Haunted History Tour Guide Relationship Specialty Start Date End Date Bryson Alba MD [address] [place] [address] PCP - General Family Medicine 02/14/19 documented as of this encounter
--- OUTSIDE RECORDS SUMMARY | 2024-05-16 16:42 | XMS_ITS | Encounter Summary ---
Author Organization [facility] Address [facility] [place] [address] Care Team Providers Care Facilities Maintenance Technician Name Role Phone Bryson Alba MD Primary Care Provider [phone] Reason for Visit * Reason Onset Date Comments Follow-up 08/25/2023 Encounter Details Date Type Department Care Team (Late st Contact Info) Description 08/25/2023 Telephone Radiation Oncology at [address] [phone] Tami Tejeda, RN Follow-up Social History Tobacco Use Types Packs/Day Years [...] encounter Miscellaneous Notes * Telephone Encounter - Tami Tejeda, RN - 08/25/2023 10:05 AM EST Called Dylan Glen Mando to relay that Dr. Teran said there is no plan for radiation after surgery unless his PSA starts going up again. Dylan is scheduled for surgery in October. He was thankful for the follow up. ----- Message ----- From: Ayo Teran MD Sent: 08/22/2023 1:43 PM EST To: Leena Bean; Shaylee Bocanegra There is no plan for XRT after surgery unless his PSA starts going up again ----- Message ----- From: Leena Bean Sent: 08/22/2023 1:24 PM EST To: Ayo Teran MD; Shaylee Bocanegra I guess so, yes. Would he still get xRT after surgery? I guess if the answer is no I could put a note out to nursing to walk him through that. ----- Message ----- From: Ayo Teran MD Sent: 08/22/2023 1:19 PM EST To: Leena Bean; Shaylee Bocanegra His MRI from April 2023? ----- Message ----- From: Leena Bean Sent: 08/22/2023 9:25 AM EST To: Ayo Teran MD; Shaylee Bocanegra Hi- Kevin called in today and wanted to see if you can take a look at his MRI results. He is set up for surgery in October but is wondering if you still agree he should move forward with it and if thereis a role for radiation after the fact. Do you want us to book him for an appt with you? Mallika GARCIA in case you talk about it during team meeting documented in this encounter Plan of Treatment Upcoming Encounters Date Type Department Care Team (Late st Contact Info) Description 11/10/2022 11:59 PM EDT Anesthesia Event Main OR at [address] [phone] Jojo Salvador CRNA [address] [place] [address] [place] [address] documented as of this encounter Visit Diagnoses Not on filedocumented in this encounter Care Teams Facilities Maintenance Technician Relationship Specialty Start Date End Date Bryson Alba MD [address] [place] [address] PCP - General Family Medicine 02/14/19 documented as of this encounter
--- OUTSIDE RECORDS SUMMARY | 2024-05-16 16:42 | XMS_ITS | Encounter Summary ---
[place] [address] Care Team Providers Care Head Sampler Name Role Phone Bryson Alba MD Primary Care Provider [phone] Encounter Details Date Type Department Care Team (Late st Contact Info) Description 10/31/2023 [place] [address] Leni Yates, RN Social History Tobacco Use Types Packs/Day Years Used Date Smoking Tobacco: Former Cigarettes Q uit: 1997 Smokeless Tobacco: Never Alcohol Use Standard Drinks/Week Comments Not Asked 0 (1 standard drink = 0.6 oz pur e alcohol) [facility] Inpatient Questions Answer Date Recorded Does Anyone Try to Keep You From Having Contact with Others or Doing Things Outside Your Home? no 10/25/2023 Feels Threatened by Someone no 10/15 Feels Unsafe at Home or Work/School no 10/25/2023 Physical Signs of Abuse Present no 10/25/2023 Sex and Gender Information Value Date Recorded Sex Assigned at Not on file Gender Identity Not on file Sexual Orientation Not on file documented as of this encounter Progress Notes * Leni Yates RN - 10/31/2023 10:12 AM EDT Call placed to patient to follow up on pre-op urine culture. Patient reports that he dropped a sample off at [facility] on 10/26/23. Call placed to [facility], they have no orders for urine culture so urine from 10/26/23 was discarded. Order faxed to [facility]. Call returned to patient, he will go back to [facility] later today or tomorrow morning to drop off another urine sample. documented in this encounter Plan of Treatment Upcoming Encounters Date Type Department Care Team (Late st Contact Info) Description 11/10/2022 11:59 PM EDT Anesthesia Event Main OR at [address] [phone] Jojo Salvador, [address] [place] [address] documented as of this encounter Visit Diagnoses Not on filedocumented in this encounter Care Teams Head Sampler Relationship Specialty Start Date End Date Bryson Alba MD [address] [place] [address] PCP - General Family Medicine 02/14/19 documented as of this encounter
--- OUTSIDE RECORDS SUMMARY | 2024-05-16 16:42 | XMS_ITS | Encounter Summary ---
[place] [address] Care Team Providers Care Stroke Coordinator Name Role Phone Bryson Alba MD Primary Care Provider [phone] Encounter Details Date Type Department Care Team (Late st Contact Info) Description 11/02/2023 [place] [phone] Marilee Tobar RN Social History Tobacco Use Types Packs/Day Years Used Date Smoking Tobacco: Former Cigarettes Q uit: 1997 Smokeless Tobacco: Never Alcohol Use Standard Drinks/Week Comments Not Asked 0 (1 standard drink = 0.6 oz pur e alcohol) [facility] Inpatient Questions Answer Date Recorded Does [...] encounter Miscellaneous Notes * Telephone Encounter - Marilee Tobar RN - 11/02/2023 9:52 AM EDT Returned call to patient Instructed patient to notify his PCP regarding his symptoms and seasonal allergies Patient verbalized understanding and will contact PCP * Telephone Encounter - Marilee Tobar RN - 11/02/2023 9:49 AM EDT Copied from CRM #[id number]. Topic: Specialty Dept CRMs - Generic Call >> Nov 02, 2023 9:19 AM Naya Zee wrote: Specialist: Nils Relationship (if other than patient-full name): Self Reason for Call: Patient states they experience sinus symptoms seasonally and it is normal for them. Patient expressed concern about their sinus drainage and asked if there was a medication they could take before their surgery, so their sinus drainage wouldn't be an issue. Please all to advise. documented in this encounter Plan of Treatment Upcoming Encounters Date Type Department Care Team (Late st Contact Info) Description 11/10/2022 11:59 PM EDT Anesthesia Event Main OR at [address] [phone] Jojo Salvador, [address] [place] [address] documented as of this encounter Visit Diagnoses Not on filedocumented in this encounter Care Teams Stroke Coordinator Relationship Specialty Start Date End Date Bryson Alba MD [address] [place] [address] PCP - General Family Medicine 02/14/19 documented as of this encounter
--- OUTSIDE RECORDS SUMMARY | 2024-05-16 16:42 | XMS_ITS | Encounter Summary ---
[place] [address] Care Team Providers Care Sanitation Supervisor Name Role Phone Bryson Alba MD Primary Care Provider [phone] Encounter Details Date Type Department Care Team (Late st Contact Info) Description 11/11/2022 [place] [address] Leni Yates, RN Social History [...] encounter Miscellaneous Notes * Telephone Encounter - Leni Yates LPN - 11/11/2022 12:34 PM EDT Call returned to patient. Pt is scheduled for Cysto Laser TURP on 11/30/[address] Goodman, he received biopsy results from yesterday which revealed prostate cancer (notes received in media file), patient has some questions and concerns now with proceeding with the laser/turp. Questions: 1. Would a prostatectomy be suggested now vs Laser? 2. If he proceeds with the laser, could he have a prostatectomy performed in the future if he decides? 3. Could the laser cause cancer to spread? Will forward message to Dr. Goodman to review, would you like a follow up or telehealth scheduled with this patient to review questions? * Telephone Encounter - Leni Yates LPN - 11/11/2022 12:34 PM EDT Copied from [facility], [facility] #[id number]. Topic: Specialty Dept CRMs - Generic Call >> Nov 11, 2022 10:41 AM Martha Mcallister wrote: Specialist: Dr. Goodman Relationship (if other than patient-full name): Dylan Gilmore Reason for Call: Patient calling and states he has an upcoming procedure with provider on 11/16/2022nd would like to further discuss the procedure. Patient states he is available till 3:00 today. Please call to further discuss. documented in this encounter Plan of Treatment Upcoming Encounters Date Type Department Care Team (Late st Contact Info) Description 11/10/2022 11:59 PM EDT Anesthesia Event Main OR at [address] [address] Jojo Salvador, E[place] [address] [place] [address] [place] [address] documented as of this encounter Visit Diagnoses Not on filedocumented in this encounter Care Teams Sanitation Supervisor Relationship Specialty Start Date End Date Bryson Alba MD [address] [place] [address] PCP - General Family Medicine 02/14/19 documented as of this encounter
--- OUTSIDE RECORDS SUMMARY | 2024-05-16 16:42 | XMS_ITS | Encounter Summary ---
[place] [address] Care Team Providers Care Batch Tank Controller Name Role Phone Bryson Alba MD Primary Care Provider [phone] Reason for Referral * Diagnostic Test (Routine) - Closed Specialty Diagnoses / Procedures Referred By Contac t Referred To Contact Radiology Diagnoses Malignant neoplasm of prostate Procedures MRI Pelvis wwo (Prostate) Danny Wray MD [facility] [place] [address] [place] [address] Referral ID Status Reason Start Date Expiration Date V isits Requested Visits Authorized [id number] Closed Specialty Service Requested 03/28/2023 09/25/2024 1 1 Reason for Visit * Diagnostic Test (Routine) - Closed Specialty Diagnoses / Procedures Referred By Contac t Referred To Contact Radiology Diagnoses Malignant neoplasm of prostate Procedures MRI Pelvis wwo (Prostate) Danny Wray MD [facility] [place] [address] [place] [address] Referral ID Status Reason Start Date Expiration Date V isits Requested Visits Authorized [id number] Closed Specialty Service Requested 03/28/2023 09/25/2024 1 1 Encounter Details Date Type Department Care Team (Latest Contact Info) Description 05/10/2023 4:27 PM EDT - 05/10/2023 11:59 PM EDT Hospital Encounter [facility] [place] [address] Danny Wray MD [facility] [place] [address] Malignant neoplasm of prostate Discharge Disposition: Home [...] on file documented as of this encounter Medications at Time of Discharge [...] Tablet Take 10 mg by mouth daily. white petrolatum-mineral oiL (Refresh-PM) Place into the right eye 2 times daily for 5 days. 10 each 11/09/2023 11/14/2023 polyethylene glycoL (Miralax) 17 gram oral powder packet Take 17 g by mouth daily as needed. 08/14/2023 finasteride (Proscar) 5 mg Tablet Take 5 mg by mouth daily. 07/15/2022 10/25/2023 acetaminophen (TYLENOL) 325 mg tablet 10/19/2009 10/25/2023 documented as of this encounter Plan of Treatment Upcoming Encounters Date Type Department Care Team (Late st Contact Info) Description 11/10/2022 11:59 PM EDT Anesthesia Event Main OR at [address] [address] Jojo Salvador, [address] [place] [address] documented as of this encounter Procedures Procedure Name Priority Date/Time Associated Diagnosis Comments MRI PELVIS WWO (PROSTATE) Routine 05/10/2023 5:46 PM EDT Malignant neoplasm of prostate documented in this encounter Results * MRI Pelvis wwo [...] J1, Rashid M1, Gold S1, Lundberg G1, Rayn K1, Nadir MJ1, Corey BJ1, Ramos PA1, Vitaly PL1, Saqib B1. ??A Grading System for the Assessment of Risk of Extraprostatic Extension of Prostate Cancer at Multiparametric MRI. Radiology. 2019 Sep;290(3):709-719. doi: 10.1148/radiol.2577256061. Epub 2018Aug 07. Thank you for letting us participate in the care of this patient. ??If you are a health care provider and have any questions regarding this report, please contact the number below. ??For patients who have questions please contact the health tree care foreman that requested your imaging first. ? Narrative 05/12/2023 8:42 AM EDT EXAMINATION: MRI PELVIS WWO (PROSTATE) CLINICAL HISTORY: Prostate Cancer Staging REASON FOR PROSTATE EXAM: HAS PATIENT HAD PREVIOUS BIOPSY?:Yes,10/2022 MOST RECENT PSA LEVEL:5.3 on finasteride JANETT SCORE:3+4 TECHNIQUE: Multiparametric MRI of the prostate [...] BIOPSY?:Yes,10/2022 MOST RECENT PSA LEVEL:5.3 on finasteride JANETT SCORE:3+4 TECHNIQUE: Multiparametric MRI of the prostate [...] location: axial series 8001, image 21; sagittal [id number], image 13. Segmented in UroNav. PI-RADS v2.1 [...] MJ1, Corey BJ1, Ramos PA1, Vitaly PL1, Turkbey B1.A Grading System for the Assessment of Risk of Extraprostatic Extension of Prostate Cancer at Multiparametric MRI. Radiology. 2019Mar;290(3):709-719. doi: 10.1148/radiol.4828277216. Epub 2018Aug 07. Thank you for letting us participate in the care of this patient. If youare a health care provider and have any questions regarding this report,please contact the number below. For patients who have questions please contactthe health tree care foreman that requested your imaging first. Danny Wray MD IMG MRI ORDERABLES documented in this encounter Visit Diagnoses Diagnosis Malignant neoplasm of prostate documented in this encounter Administered Medications Inactive Administered Medications - up to 3 most recent administrations Medication Order MAR Action Action Date Dose Rate Site gadoterate meglumine (Dotarem) (0.5 mMol/mL) injection solution 0-100 mL 0-100 mL, Intravenous, ONCE PRN, 1 dose, Starting on Mon05/10/23 at 1733, Until Mon05/10/23 at 1733, Per Protocol, Radiology Contrast, Routine Given 05/10/2023 5:33 PM EDT 13 mLs documented in this encounter Care Teams Batch Tank Controller Relationship Specialty Start Date End Date Bryson Alba MD [address] [place] [address] PCP - General Family Medicine 02/14/19 documented as of this encounter
--- OUTSIDE RECORDS SUMMARY | 2024-05-16 16:42 | XMS_ITS | Encounter Summary ---
Author Organization [facility] [place] [address] Care Team Providers Care Etl Developer Name Role Phone Bryson Alba MD Primary Care Provider [phone] Encounter Details Date Type Department Care Team (Latest Contact Info) Description 01/12/2023 Travel Social History Tobacco Use Types Packs/Day [...] PM EDT Anesthesia Event Main OR at [address] [address] Jojo Salvador, [address] [place] [address] documented as of this encounter Visit Diagnoses Not on filedocumented in this encounter Care Teams Etl Developer Relationship Specialty Start Date End Date Bryson Alba MD [address] [place] [address] PCP - General Family Medicine 02/14/19 documented as of this encounter
--- OUTSIDE RECORDS SUMMARY | 2024-05-16 16:42 | XMS_ITS | Encounter Summary ---
Author Organization [facility] [place] [address] Care Team Providers Care Nurse Prn Name Role Phone Bryson Alba MD Primary Care Provider [phone] Reason for Visit * Consultation (Routine) - Closed Specialty Diagnoses / Procedures Referred By Anya stark Referred To Contact Radiation Oncology Diagnoses Malignant neoplasm of prostate Lisa Leary APRN [address] [place] [address] Ayo Teran MD [address] [place] [address] [place] [address] Referral ID Status Reason Start Date Expiration Date V isits Requested Visits Authorized [id number] Closed Consult, Test & Treat PCP Updated and/or Approved 11/17/2022 11/17/2023 6 6 Encounter Details Date Type Department Care Team (Late st Contact Info) Description 12/15/2022 1:00 PM EDT Office Visit Radiation Oncology at [address] [phone] Ayo Teran MD [address] [place] [address] [place] [address] Malignant neoplasm of prostate Social History Tobacco Use Types Packs/Day Years Used Date Smoking Tobacco: Former Cigarettes Q uit: 1998 Smokeless Tobacco: Never Tobacco Cessation:Counseling Given: Not [...] Sign Reading Time Taken Comments Blood Pressure 106/64 12/15/2022 12:32 PM EDT Pulse 66 12/15/2022 12:32 PM EDT Temperature 36.6 ??C (97.9 ??F) 12/15/2022 12:32 PM E DT Respiratory Rate 20 12/15/2022 12:32 PM EDT Oxygen Saturation 100% 12/15/2022 12:32 PM EDT Inhaled Oxygen Concentration - - Weight 67.2 kg (148 lb 3.2 oz) 12/15/2022 12:32 PM EDT Height - - Body Mass Index 22.53 11/09/2022 10:24 AM EDT documented in this encounter Patient Instructions * Patient Instructions* Ayo Teran MD - 12/15/2022 1:00 PM EDT Dear Mr. Gilmore, Dr. Gonzales asked for me to see you to discuss how radiation therapy can be used to treat your prostate cancer and this note is to recap our discussion regarding use of radiation treatments. As your radiation oncologist, I work closely with your other healthcare providers and most importantly, with you to make sure that the treatments we discuss and offer keep your personal preferences and goals in mind. We discussed the following next steps as part of your cancer evaluation and/or treatment: 1. The aggressiveness of your prostate cancer: You technically have favorable intermediate risk prostate cancer, which is a risk given to your cancer of coming back after treatment. This is based on three things 1. Your PSA (the blood test) was 5.3. PSA values below 10 are considered low risk and 10-20 are considered medium risk. 2. Your highest Jacobson Group score was 2 (this is how aggressive your prostate cancer looks under the microscope). Jacobson scores for cancer range from 1-5, and 1 is considered lowest risk, while 5 is highest risk. 3. How aggressive your prostate cancer felt when Dr. Gonzales did the prostate exam (through the rectum) and. He did not feel any cancer beyond the edge of the prostate. 2. Treatment Options for Favorable Intermediate Risk prostate cancer: Overall, the decision to treat prostate cancer is based on both the risk that the cancer can kill you and your general overall health. There are several treatment options to consider, all with various advantages and disadvantages. A. One option is called 'active surveillance,' which means closely following your prostate cancer and treating it only if it becomes more aggressive. A typical active surveillance approach would involve repeated rectal exams (yearly) and PSA's (at least twice yearly), repeated biopsies (every 2 years or so, likely with an MRI). We would also recommend an MRI now, to be sure there are no aggressive tumors in the prostate that we are not seeing. If there are no such tumors, we would then watch your PSA closely and if it begins to rise quickly, if the rectal exam shows a prostate nodule, or if future biopsies show more aggressive disease, treatment would be offered and more strongly recommended than it is today. The benefit to this approach is that your prostate cancer may never become aggressive enough to shorten or even negatively impact your life. Avoiding treatment could spare you the side effects (and hassle) of going through radiation or surgery. If you are uncertain about proceeding with surveillance we could order a genetic test called Decipher that gives us a score of 0-1 ofhow aggressive your prostate cancer seems to be. A lower score would be reassuring that we can safely watch this cancer. This is usually (but not always) covered by insurance, and costs about $400. If you choose to proceed with surveillance, the next step would be for me to refer you either back toDr Gonzales or to the Active Surveillance Clinic at [facility], which is run by our prostate cancer surgeons. B. External beam radiation or surgery: If you decline active surveillance and wish to pursue treatment, both radiation and surgery are excellent options with cure rates >90%. Our meeting here today is to review the external beam radiation option offered here, which involves daily radiation treatments, 5 days a week M- F for 5.5 weeks. C. Radioactive seed implants (brachytherapy): While the form of radiation which we offer here involves shooting radiation into your prostate from the outside, I can refer you to my colleague Dr. Mulligan in [place], who specializes in the placement of radioactive seeds into the prostate, which amparo one-time procedure. D. SBRT (radiosurgery): This is a relatively new way to treat prostate cancer, which involves just 5 very high dose radiation treatments. Side effects might be slightly higher with this treatment as compared to the 5.5 week approach. 3. Fiducial Marker and SpaceOAR gel implants: If you choose external beam radiation treatments, thefirst step is for you to return to our clinic so that we can place small gold markers (called fiducials) into the prostate, which help us visualize the prostate on a daily basis prior to treating youwith radiation. These small gold seeds are about the size of a grain of rice, and we will place oneinto each side of the prostate. At the same time as placing the prostate fiducial markers in your prostate, I will implant a gel called SpaceOAR, which involves an injection of the gel into the space between the prostate and rectum, to decrease the amount of radiation that goes to the rectum. These procedures will be performed here in our clinic, and our nursing team will provide you instructions with how to prepare yourself. 4. Radiation Therapy and Planning: Radiation therapy involves using high energy radiation which kills cancer but also normal healthy tissues. In order to make sure the radiation goes to the canceroustissues and to also avoid radiating the normal tissues, we design radiation beams beams into special shapes which come from various different directions. Because no two people and no two cancers are completely identical, the radiation plan we create for you will be unique to you and your body. In order to figure out how many beams to use, how much radiation to give, which angles they should come from, and how they should be shaped, we have asked you to undergo 2 mapping scans: one is done here in our department known as a CT simulation, or CT sim, for short. This is essentially a CAT-scan similar to scans which you may have received before, but slightly different in a few ways: First, it allows us to place you in the exact same position which you should expect to be placed during each of your radiation treatment sessions. Second, it lets us better understand where the radiation targets and the normal tissues that we want to avoid exist, in relation to each other and the radiation beams. The second scan is a prostate MRI which we do at [facility], that allows us to better see your prostate. Following these scans, we then perform additional calculations and measurements to create the absolute best plan possible for you. Depending on the complexity of the plan, these processes can take from just few hours to several days, and for that we ask for your patience. If you have any questions about the planning process or your custom radiation plan, I would be more than happy to review the plan with you during your first week of treatment. I anticipate you would receive 28 treatments total, daily Monday-Monday for 5.5 weeks. Your start date and time would be provided once the simulation scan is completed. During your radiation treatments, you can expect to see me once per week so that I can examine you to make sure you are tolerating radiation treatments and so that we can monitor your response to treatment. 5. Short Term Toxicity (Side Effects) of Radiation: We discussed some common temporary side effectsthat you may experience during radiation. Common side effects may include irritative symptoms of the bladder or prostate, which can result in more frequent urination or defecation. Other common side effects mahy include weakened urinary stream or burning with urination. If you experience any of these, please let us know so that we can help to treat them. These typically resolve within 4-6 weeks of completion radiation. 6. Detention Complications: These are more worrisome and are due to permanent damage of the radiated tissues, including the rectum/bowel, bladder, prostate and surrounding tissues. Potential serious injury is rare, but can include poor wound healing, bleeding, or destruction of healthy tissue that may require surgery to repair and may result in a colostomy (bag for defecation) or urostomy (bag for urination). There may be a slow, longterm decrease in your sexual function as well, which is partly due to the aging process but also partly due to radiation side effects. This is typically responsive to medications like Viagra. Finally, there is a risk that radiation to your prostate increases the chance of getting another cancer caused by radiation, possibly of the prostate, bladder, rectum or surrounding tissues. This risk is overall quite low (approximately 1% above your normal risk for each 10 years you are alive), but is something to be aware of. Please do not hesitate to call me at [phone] with any other questions or concerns you have. IfI am not here, one of our radiation oncology nurses can assist you or help you get in touch with me. A Radiation Oncology doctor is also subway conductor after our normal hours and on weekends for urgent questions or concerns related to radiation treatments that can not wait until normal business hours. To reach the on-call doctor after-hours, just call and have the screen printing machine operator page the Radiation Oncologist subway conductor. And, as always, if you experience any life-threatening emergencies which any include the following,you need to seek emergency care immediately by calling 911: 1. Sudden and unexpected breathing difficulty without any exertion 2. Sudden onset of chest pain 3. Sudden onset of severe pain or uncontrolled pain 4. Sudden onset of severe weakness and/or unable to walk 5. Sudden new onset of a seizure 6. Fall resulting in injury 7. Uncontrollable bleeding Sincerely, Ayo Teran MD, MS Radiation Oncology documented in this encounter Progress Notes * Chris Young RN - 12/15/2022 1:00 PM EDT RADIATION ONCOLOGY NURSING INITIAL NURSING ASSESSMENT IDENTIFICATION: Dylan Gilmore is a 72 y.o. year-old male with Prostate CA PRESENTING SYMPTOMS/CHIEF COMPLAINT: NPW REVIEW OF SYSTEMS: Review of Systems - Oncology IN THE PAST 12 MONTHS HAVE YOU: Fallen more than one time? No Injured yourself as result of the fall? No Experienced difficulty with walking/problems with balance? No Do you use any assistive devices? No Any history of collagen vascular diseases:No Any Implanted Devices/Hardware: No If yes please put alert in ARIA patient summary Prior Radiotherapy: No Prior Chemotherapy: No Prior Hormone Therapy: No Other: Patient denies history of Scleroderma and Lupus LEARNING ASSESSMENT REVIEWED: N/A ADVANCED DIRECTIVE: Not discussed today. PAIN ASSESSMENT: [0] out of 10 eD-H Adult PCS Flow Sheet if 4 or above SOCIAL ASSESSMENT: See EDH social assessment information entered. Support Systems: Girlfriend on the weekends Barriers to treatment: None Referrals/Interventions: childcare worker visit on day per routine. RADIATION SPECIFIC TEACHING:Will provide the following information on day [facility] Radiation Therapy and You Site specific teaching : Other: PLAN: Per * Ayo Teran MD - 12/15/2022 1:00 PM EDT Images from the original note were not included. Radiation Oncology Prostate Cancer Consult Note Ayo Teran MD, MS [facility] [phone] PATIENT IDENTIFICATION: PATIENT NAME: Dylan Gilmore DATE OF : 1950 REFERRING PROVIDER: Dr Gonzales PRIMARY CARE PROVIDER: Dr Alba REASON FOR CONSULTATION : Cancer Staging Malignant neoplasm of prostate Staging form: Prostate, AJCC 8th Edition - Clinical: Stage IIB (cT1c, cN0, cM0, PSA: 5.3, Grade Group: 2) - Signed by Ayo Teran MD on 12/14/2022 HISTORY OF PRESENT ILLNESS: Dylan Gilmore is a 72 y.o. male recently diagnosed with a favorable intermediate-risk prostate cancer. Presenting Symptoms / Duration: ePSA Prior consultations / recommendations: Dr Gonzales - office note 09/09/22 - history of interstitial cystitis, pain with Lund placement. Rec Dr Goodman c/s re: TURP vaporization. Stable elevated PSA. Dr Gonzales - biopsy procedure note 10/27/22 - MELONY shows no palpable abnormality. Prostate biopsy recommended prior to TURP vaporization. Dr Gonzales - office note 11/10/22 - Likely recommend and proceed with prostate vaporization PSA History: 05/13/22 - 5.3 (while on [...] A/P 12/09/22 - No LAD Enlarged prostate Dylan is here today to discuss radiation therapy for treatment of his recently diagnosed prostate cancer. REVIEW OF SYSTEMS: He reports some anxiety and occasional chest pain. His PCP has evaluated for cardiac disease which has been negative. Significant LUTS - IPSS today is 16 with high scores on both daytime frequency (4/5) and nocturia (5x/nt). He states that nocturia is his main complaint - he is sometimes up every 30mins /on. He also has some leakage and urgency. He reports significant, sometimes painful constipation as well. Most recent colonoscopy was 2018. A comprehensive 14 point review of systems was conducted with this patient and is otherwise negative except as documented above. He has significant nocturia and is considering PVP. PAST MEDICAL HISTORY Past Medical History: Diagnosis Date ??? Anxiety ??? Constipation ??? Hyperlipidemia ??? Prostate cancer Past Surgical History: Procedure Laterality Date ??? COLONOSCOPY ??? US GUIDED BIOPSY PROSTATE WITH URONAV FUSION CONTRAINDICATIONS TO RADIATION THERAPY: None ?? Prior radiation therapy: No ?? Active Lupus: No ?? Systemic Scleroderma: No MEDICATIONS / ALLERGIES: Medications 12/15/22 1254 Medication Sig Taking? META-CRESOL, BULK, MISC by Misc.(Non-Drug; Combo Route) route. Yes polyethylene glycoL (Miralax) 17 gram oral powder packet Take 17 g by mouth daily as needed. Yes finasteride (Proscar) 5 mg Tablet Take 5 mg by mouth daily. Yes acetaminophen (TYLENOL) 325 mg tablet Yes Allergies Allergen Reactions ??? 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 Breast Cancer Mother ??? Alzheimer Disease Mother ??? Heart Disease Father PHYSICAL EXAM BP 106/64 (Patient Position: Sitting) Pulse 66 Temp 36.6 ??C (97.9 ??F) Resp 20 Wt 67.2 kg (148 lb 3.2 oz) SpO2 100% BMI 22.53 kg/m?? General: alert, well appearing, and in no distress sitting in exam room alone MELONY: deferred TODAY'S PERFORMANCE STATUS: KPS Score ECOG Grade Definition 90-100 0 Fully active, able to carry on all pre-disease performance without restriction XX 70-80 1 Restricted in physically strenuous activity but ambulatory and able to carry out work ofa light or sedentary nature, e.g., light house work, office work 50-60 2 Ambulatory and capable of all selfcare but unable to carry out any work activities; up and about more than 50% of waking hours 30-40 3 Capable of only limited selfcare; confined to bed or chair more than 50% of waking hours 10-20 4 Completely disabled; cannot carry on any selfcare; totally confined to bed or chair ASSESSMENT / PLAN: Dylan Gilmore is a 72 y.o. man diagnosed with low to favorable intermediate- risk prostate cancer (cT1c, Gl 3+4, PSA 5.3). While he technically has 3+4 disease the amount of pattern 4 is minimal. Further his PSA corrects to 10.6. While one could technically render him 'unfavorable' intermediate risk given these 2 risk facrtos, I agree with Dr Gonzales that given the size of his prostate the PSA is overestimating disease burden and likely he has low to favorable intermediate risk disease. Staging bone scan mentions possible metastatic disease at T7 - I will review this finding with our nuclear medicine team. Today we reviewed the risks, benefits, rationale, implications and alternatives of the various management options, which include radical prostatectomy, radiation therapy, and active surveillance withdelayed curative intent. Active surveillance was reviewed, including the role of mpMRI to be sure there were not concerning lesions missed in the initial TRUS biopsy. However he expressed considerable anxiety around this diagnosis, and seems unlikely to proceed with an approach however. Given his prostate size and LUTS, SBRT and brachytherapy were considered but not discussed or recommended as first line treatment given risk of toxicity. In the short term, I reviewed the common irritative bowel and bladder side effects associated with all forms of radiotherapy. Given his severe LUTS at present we discussed that he may require a catheter. Mitigation strategies were reviewed today - including ADT and/or TURP prior to starting RT. In the event that he experiences severe worsening of his current LUTS, he understands that ISC or indwelling lund catheter may be required. He understands that postoperative we would not routinely startradiotherapy for at least 3 if not 6 months to allow for complete healing. In the terminal carman, I explained there is an approximately 2% chance of serious bladder or rectal toxicity as well as a very low risk of inducing a secondary malignancy. I also reviewed that with radiation there are few reliable salvage curative options. Logistics of external beam treatment were not reviewed today. Clinical trials were also considered. He is not a candidate for any currently open trials at [facility]. On balance, Dylan wishes to proceed with surgical consultation next week. Again, I do not think helikely to pursue surveillance given his anxiety level around the diagnosis. As it stands I counseled him towards RALP as it would address both his prostate cancer and LUTS. In the meantime I will also submit his bone scan for a 2nd read. Follow-up appointments will be made accordingly. All of his questions were answered to his satisfaction, and we have provided him with our contact information should any further questions or concernsarise. SUMMARY OF PLAN / RECOMMENDATION: 1. Intent of therapy: Curative 2. Clinical Trial Availability: No 3. 2nd read bone scan 4. Dr Wray next week 5. RT if and only if LUTS improve, otherwise rec RALP as he seems unlikely to pursue Time Attestation: I certify spending at least 60 minutes in providing care to this patient today, 12/15/22 as reflected by the following activities: - review of his medical record in the chart, including interpretation of imaging, laboratory and pathologic studies referenced above - discussion of the above with the patient as part of shared medical decision making - documenting the outcome of today's visit as above AYO TERAN MD, MS documented in this encounter Plan of Treatment Upcoming Encounters Date Type Department Care Team (Late st Contact Info) Description 11/10/2022 11:59 PM EDT Anesthesia Event Main OR at [address] [phone] Jojo Salvador, [address] [place] [address] documented as of this encounter Results * Request for 2nd read Nuclear Medicine (12/14/2022 12:18 PM EDT) Anatomical Region Laterality Modality SO Impressions 12/15/2022 3:02 PM EDT Increased activity is present either in the T8 vertebral body or T7-T8 disc interspace. The most likely causes for this include a compression fracture or degenerative disc disease. A metastasis is less likely but not excluded. Please consider correlation with radiographs of the thoracic spine. Thank you for letting us participate in the care of this patient. ??If you are a health care provider and have any questions regarding this report, please contact the number below. ??For patients who have questions please contact the health nursing care partner that requested your imaging first. ? Electronically signed by: Cornelius Mancini MD, [facility] ([phone]), at 12/15/2022 3:02 PM Narrative 12/15/2022 3:02 PM EDT EXAMINATION: REQUEST FOR 2ND READ NUCLEAR MEDICINE CLINICAL HISTORY: staging bone scan - is there really concern for metastatic disease at T7?; Sending Institution [facility]; Date of exam [id number]; I believe a reinterpretation of this exam may alter care of Patient. Yes TECHNIQUE: A bone scan performed at [facility] on December 09, 2022 is submitted for review. The scan consists of anterior posterior views of the entire skeleton, lateral views of the head, chest, abdomen and pelvis. COMPARISON: CT scan of the abdomen December 09, 2022 FINDINGS: Increased activity in the thoracic spine corresponds to either the T8 vertebral body or the T7-T8 disc interspace. There is increased activity associated with degenerative disc disease in the right side of L4-L5. Degenerative disease is present in the right shoulder. Heterogeneous activity within the left kidney is most likely related to the known cysts. Procedure Note Cornelius Mancini MD - 12/15/2022 EXAMINATION: REQUEST FOR 2ND READ NUCLEAR MEDICINE CLINICAL HISTORY: staging bone scan - is there really concern formetastatic disease at T7?; Sending Institution [facility]; Date of exam [id number]; I believea reinterpretation of this exam may alter care of Patient. Yes TECHNIQUE: A bone scan performed at [facility] on 2022 is submitted for review. The scan consists of anterior posterior views ofthe entire skeleton, lateral views of the head, chest, abdomen and pelvis. COMPARISON: CT scan of the abdomen December 09, 2022 FINDINGS: Increased activity in the thoracic spine corresponds to either the [place] body or the T7-T8 disc interspace. There is increased activity associated with degenerative disc disease inthe right side of L4-L5. Degenerative disease is present in the right shoulder. Heterogeneous activity within the left kidney is most likely related tothe known cysts. IMPRESSION Increased activity is present either in the T8 vertebral body or T7-T8disc interspace. The most likely causes for this include a compression fractureor degenerative disc disease. A metastasis is less likely but not excluded.Please consider correlation with radiographs of the thoracic spine. Thank you for letting us participate in the care of this patient. If youare a health care provider and have any questions regarding this report,please contact the number below. For patients who have questions please contactthe health nursing care partner that requested your imaging first. Electronically signed by: Cornelius Mancini MD, [facility]([phone]), at 12/15/2022 3:02 PM Ayo Teran MD IMG OUTSIDE INTERPRE TATION ORDERABLES documented in this encounter Visit Diagnoses Diagnosis Malignant neoplasm of prostate Malignant neoplasm of prostate documented in this encounter Care Teams Nurse Prn Relationship Specialty Start Date End Date Bryson Alba MD [address] [place] [address] PCP - General Family Medicine 02/14/19 documented as of this encounter
--- OUTSIDE RECORDS SUMMARY | 2024-05-16 16:42 | XMS_ITS | Encounter Summary ---
Author Organization [facility] Address [facility] [place] [address] Care Team Providers Care Grain Combiner Name Role Phone Bryson Alba MD Primary Care Provider [phone] Reason for Visit * Consultation (Routine) - Closed Specialty Diagnoses / Procedures Referred By Anya stark Referred To Contact Urology Diagnoses Other obstructive and reflux uropathy Benign prostatic hyperplasia with lower urinary tract symptoms 02/06/22 - BPH/LUTS, OBSTRUCTIVE REFLUX UROPATHY Farooq Gonzales MD [address] [place] [address] Barney Goodman MD [facility] [address] [place] [address] Referral ID Status Reason Start Date Expiration Date V isits Requested Visits Authorized [id number] Closed Consult, Test & Treat PCP Updated and/or Approved 01/11/2022 01/11/2023 6 6 Encounter Details Date Type Department Care Team (Late st Contact Info) Description 09/01/2022 11:20 AM EST [place] [address] Barney Goodman MD [facility] [address] [place], [place] [id number] Benign prostatic hyperplasia, unspecified whether lower urinary tract symptoms present Social History Tobacco Use Types Packs/Day Years Used Date Smoking Tobacco: Never Assessed Sex and Gender Information Value Date Recorded Sex Assigned at Not on file Gender Identity Not on file Sexual Orientation Not on file documented as of this encounter Last Filed Vital Signs Vital Sign Reading Time Taken Comments Blood Pressure 125/83 09/01/2022 11:26 AM EST Pulse 71 09/01/2022 11:26 AM EST Temperature - - Respiratory Rate - - Oxygen Saturation - - Inhaled Oxygen Concentration - - Weight - - Height - - Body Mass Index - - documented in this encounter Patient Instructions * Patient Instructions* Barney Goodman MD - 09/01/2022 11:20 AM EST Instructions Prior to Surgery Prior to this procedure it is important to have normal blood clotting. Please discuss with your Primary Care Provider or the provider managing your blood thinner medication(s) listed below, to stop your medications safely before your surgical procedure. Aspirin Coumadin (Warfarin) Plavix (Clopidogrel); Prasugrel (Effient); OR Ticagrelor (Brilinta) Xarelto (Rivaroxaban) OR Eliquis (Apixaban) Pradaxa (Dabigatran Etextilate) If you cannot confirm the safety of stopping your medications with your provider, or the provider does not approve of stopping these medications at an appropriate time frame, please contact the Urology Clinic to cancel the planned surgery and discuss other appropriate options. documented in this encounter Progress Notes * Barney Goodman MD - 09/01/2022 11:20 AM EST [facility] SECTION OF UROLOGY UROLOGY CLINIC VISIT Name: Dylan Gilmore : 1950 Date: 09/01/2022 Referred by: Farooq Gonzales Chief Complaint: BPH with LUTS History of Present Illness (carried forward for reference): Dylan Gilmore is a 71 y.o. male with IBS and BPH who is referred for management of urinary symptoms Followed by Dr. Gonzales and was offered TURP but is referred to discuss other options. Denies dysuria or hematuria or urinary incontinence. He is currently taking finasteride. Did not tolerate alpha blockers due to hypotension IPSS score 14/35 (07/20////07/20); QOL 4/6. Uroflow: Qmax 15ml/s, Qavg 8ml/s, Voiding Time 17s, Time to Qmax 4s, Voided Volume 130ml PVR = 38mL Prostate size on CT was measured as 121cc. (2019) He has never had a prostate biopsy Last PSA 6 (Range 5-10 for years) on finasteride No reported bowel issues. Patient is currently not on any anticoagulation. PMH and PSH reviewed. Physical Examination: There were no vitals taken for this visit. Constitutional: The patient is well developed, well nourished, alert and oriented, and appears his stated age. Cardiovascular: Good peripheral pulses Respiratory: Breathing comfortably. No audible wheezes are appreciated. Abdomen: Non-obese, soft, non-tender, non-distended. Extremities: Appear warm and well perfused. No LE Edema Neuro: Awake and alert. Oriented to person/place/time. No gross motor defects. Review of Tests: No results found for: WBC, RBC, HGB, HCT, MCV, MCH, MCHC No results found for: NA,K, CL, CO2, BUN No results found for: PSA Recent Urine: UA negative today Radiology personally reviewed today: CT a/p 2019 - see HPI Urine Studies Performed today: Uroflow: see HPI PVR (with bladder scanner) = 38ml ASSESSMENT Dylan Gilmore is a 71 y.o. male with BPH with moderate LUTS and low PVR . I spent this consultation with Mr Gilmore discussing the causes, sequelae, and management of an enlarged prostate. I explained that enlargement of the prostate is common among men and there is increasing prevalence among older men. The severity of symptoms of an enlarged prostate, however, can vary widely. These symptoms are often obstructive, characterized by weak urinary stream, straining, andhesitancy. Additionally, over time, the bladder itself may change becoming thick-walled, less compliant, and overactive with a lower capacity resulting in the irritative symptoms of urinary frequency and urgency. Medical management with alpha-blockers, which facilitates bladder emptying, is the fi rst-line therapy. 5-alpha reductase inhibitors can also be used to shrink the prostate, but the effects may not be realized for 6-12mo. Furthermore, anticholinergics and/or beta3-agonists may be usedto relax the bladder and reduce irritative symptoms. Indications for surgical intervention include s ymptoms refractory to medical management, urinary retention, urinary tract infection, evidence of uropathy and worsening renal function, bladder stones, and gross hematuria. Given the patient's history and symptoms, surgical intervention is reasonable. We discussed options including TURP, PVP, PVEP. Patient elects to proceed Greenlight PVP instead oflaser enucleation to avoid any temporary incontinence. Therefore I spent a good amount of time to discuss the risks and benefits of this procedure. Discussed the issues of incontinence, retrograde ejaculation, erectile dysfunction, irritative voiding symptoms, injury to urethra and bladder, persistence of irritative voiding symptoms, infertilityand very rare need of conversion to open surgery.. We also discussed his elevated PSA. He has not had an MRI or biopsy but his PSA has been stable on finasteride in the 5-[address] Gonzales's notes. He understands we cannot rule out prostate cancer without an MRI and biopsy, but given his age and stable range of PSA, he is ok proceeding with the PVP. PLAN - Schedule PVP with overnight observation at [facility] The patient expressed understanding and agreement with the above. Barney Goodman MD Section of Urology [facility] Office: [phone] ??? I spent 60minutes reviewing the patient's diagnostic tests, speaking with the patient, and documenting in the record. documented in this encounter Plan of Treatment Upcoming Encounters Date Type Department Care Team (Late st Contact Info) Description 11/10/2022 11:59 PM EDT Anesthesia Event Main OR at [address] [phone] Jojo Salvador, [address] [place]HESIOLOGY [place] [address] documented as of this encounter Procedures Procedure Name Priority Date/Time Associated Diagnosis Comments HC URINE CULTURE Routine 09/01/2022 3:46 PM EST Benign prostatic hyperplasia, unspecified whether lower urinary tract symptoms present documented in this encounter Results * Urine culture Clean Catch Urine (09/01/2022 3:46 PM EST) Urine Culture No growth (Less than 1,000 cfu/ml). [facility] Clean Catch Urine 09/01/2022 3:46 PM EST 09/01/2022 3:46 PM EST Narrative Resulting Agency Comment Spec In Lab Barney Goodman MD MICROBIOLOGY - GENER AL ORDERABLES Performing Organization Address City/State/[facility] Co de Phone Number [facility] [address] documented in this encounter Visit Diagnoses Diagnosis Benign prostatic hyperplasia, unspecified whether lower urinary tract symptoms present documented in this encounter Care Teams Grain Combiner Relationship Specialty Start Date End Date Bryson Alba MD [address] [place] [address] PCP - General Family Medicine 02/14/19 documented as of this encounter
--- OUTSIDE RECORDS SUMMARY | 2024-05-16 16:42 | XMS_ITS | Encounter Summary ---
[place] [address] Care Team Providers Care Electronic Wirer Name Role Phone Bryson Alba MD Primary Care Provider [phone] Encounter Details Date Type Department Care Team (Late st Contact Info) Description 09/02/2022 Telephone Main OR at [address] [address] Jaycee Petit Social History Tobacco Use Types Packs/Day Years [...] PM EDT Anesthesia Event Main OR at [address] [phone] Jojo Salvador, [address] ANESTHESIOLOG[place] [address] documented as of this encounter Visit Diagnoses Not on filedocumented in this encounter Care Teams Electronic Wirer Relationship Specialty Start Date End Date Bryson Alba MD [address] [place] [id number] PCP - General Family Medicine 02/14/19 documented as of this encounter
--- OUTSIDE RECORDS SUMMARY | 2024-05-16 16:42 | XMS_ITS | Encounter Summary ---
Author Organization [facility] [place] [address] Care Team Providers Care Channel Turner Name Role Phone Bryson Alba MD Primary Care Provider [phone] Encounter Details Date Type Department Care Team (Late Contact Info) Description 12/09/2022 12:05 AM EDT Ancillary Procedure Radiology Library at [facility] [place] [phone] Ayo Teran MD [address] [place] [address] DR RADIATION ONCOLOGY [place], [place] [id number] Social History Tobacco Use Types Packs/Day Years [...] PM EDT Anesthesia Event Main OR at [address] [phone] Jojo Salvador, [address] [place] [address] documented as of this encounter Procedures Procedure Name Priority Date/Time Associated Diagnosis Comments FILM LIBRARY STORAGE ONLY NUCLEAR MEDICINE Routine 12/09/2022 12:05 AM EDT documented in this encounter Results * Film Library- Storage Only nuclear medicine (12/09/2022 12:05 AM EDT) Narrative LEONA - 12/13/2022 9:53 PM EDT This exam is auto-finalizing. It's purpose is for storage only. Ayo Teran MD IMG FILM LIBRARY ORD ERABLES Performing Organization Address City/State/[facility] Co de Phone Number [place], [place] documented in this encounter Visit Diagnoses Not on filedocumented in this encounter Care Teams Channel Turner Relationship Specialty Start Date End Date Bryson Alba MD [address] [place] [address] PCP - General Family Medicine 02/14/19 documented as of this encounter
--- OUTSIDE RECORDS SUMMARY | 2024-05-16 16:42 | XMS_ITS | Encounter Summary ---
Author Organization [facility] [place] [address] Care Team Providers Care Credit Union Field Examiner Name Role Phone Bryson Alba MD Primary Care Provider [phone] Encounter Details Date Type Department Care Team (Late st Contact Info) Description 10/19/2009 Orders [place] [address] Chucho Perla MD [facility] [place] [address] Social History Tobacco Use Types Packs/Day Years Used Date Smoking Tobacco: Never Assessed [facility] Inpatient Questions Answer Date Recorded [...] PM EDT Anesthesia Event Main OR at [address] [phone] Jojo Salvador, [address] [place] [address] documented as of this encounter Procedures Procedure Name Priority Date/Time Associated Diagnosis Comments SURGICAL PATHOLOGY REPORT Routine 10/19/2009 7:46 PM EDT documented in this encounter Results * Surgical Pathology Report (10/19/2009 7:46 PM EDT) Surgical Pathology Report [id number] ? Location: 4T The signing pathologist has (i) examined the relevant preparation(s) for the specimen(s) and (ii) rendered or confirmed the diagnosis(es). . ?Pathology Surgical Pathology Final Report Clinical Information Specimen Submitted: A - Normal appearing mucosa, random Colon Clinical History: Pt with loose stools, normal colo Clinical Diagnosis: CRC screening/reflu x/abd pain/hx PUD Gross Description Labeled/Fixativ e: ? Normal-appearin g mucosa, random colon; ?formalin. Qty/Size/Weight : ?Multiple fragments, ranging from 0.1 cm to ?0.3 cm in greatest dimension. Tissue Description: ?? Soft, morales tissues. Sections/Proces sing: ??(T3) ??vms/EJR Microscopic Description Slides reviewed, microscopic description not recorded. Diagnosis Random colon biopsies: ?Colonic mucosa within normal limits. CR-PX 10/21/09 JLK 10/21/09 Verified by: ? Carlyn MCDUFFIE, Derrick ?Pathologist ?(Electronic Signature) The attending pathologist whose signature appears on this report has reviewed all diagnostic slides and has edited the gross and/or microscopic portion of the report in rendering the final pathologic diagnosis. [facility] 10/19/2009 7:46 PM EDT Chucho Perla MD PATHOLOGY/CYTOLOGY O RDERABLES [facility] documented in this encounter Visit Diagnoses Not on filedocumented in this encounter Care Teams Credit Union Field Examiner Relationship Specialty Start Date End Date Bryson Alba MD [address] [place] [address] [address] [place] [address] PCP - General Family Medicine 02/14/19 documented as of this encounter
--- OUTSIDE RECORDS SUMMARY | 2024-05-16 16:42 | XMS_ITS | Encounter Summary ---
Author Organization Formerly [facility] [place] [address] Care Team Providers Care Boat Garnisher Name Role Phone Bryson Alba MD Primary Care Provider [phone] Reason for Visit * Auth/Cert (Routine) Specialty Diagnoses / Procedures Referred By Contac t Referred To Contact Diagnoses Malignant neoplasm of prostate Prostate Cancer Procedures PRO LAP, PROSTATECTOMY, RADICAL, W/NERVE SPARE PRO LAP, PELVIC LYMPHADENECTOMY LAPAROSCOPIC PROSTATECTOMY, ROBOTICS ASSISTED (WRVU 22.46) LAPAROSCOPY,WITH BILATERAL TOTAL PELVIC LYMPHADENECTOMY, ROBOTIC (WRVU 12) MODIFIER ROBOT,DAVINCI Danny Richmond MD [facility] [place] [address] [facility] Referral ID Status Reason Start Date Expiration Date Visits Re quested Visits Authorized [id number] 1 1 Encounter Details Date Type Department Care Team (Late st Contact Info) Description 11/08/2023 7:45 AM EDT Anesthesia Event [place] [address] [facility] [place] [address] Anesthesia Record Procedure Summary Procedure Name Responsible Anesthesiologist Anesthesia Start Time Anesthesia Stop Time ROBOTIC LAPAROSCOPIC PROSTATECTOMY (WRVU 22.46) (Pelvis) Lashawn Wang MD 11/08/23 0745 11/08/23 1217 Events Date Time Event Comment 11/08/2023 0712 0745 AN Verify 0745 Start 0745 An Start Data 0752 An Induction 0759 An Intubation 0800 Anesthesia Ready 0800 IV Start 0832 Break/Relief In I assumed ca re for Break Relief before which we: 1. Identified the patient 2. Identified the responsible provider(s) 3. Reviewed the pertinent medical history 4. Discussed the surgical plan and course 5. Reviewed intra-op anesthesia management and issues during anesthesia 6. Set expectations for the relief (and/or post-procedure) period 7. Allowed opportunity for questions and acknowledgement of understanding Russell Gutierrez, COMMERCIAL CRABBER 0834 Procedure Start 0834 Skin Incision 0843 Quick Note Insufflation 0850 Break/Relief Out 1120 Quick Note Undocking robot . 1138 Quick Note PACU hold 1203 Extubation/LMA Out Pt awake, alert, following commands. Adequate TV/RR. Muscle relaxant fully reversed, 4/4 twitches, sustained tetanus. Oropharynx suctioned. Extubated with HOB elevated. 1209 an stop data 1217 Recovery or ICU Handoff Darby ent care was transferred to the destination unit staff after review of the patient's medical history, current anesthetic/surgical status and plan, according to the Provider Handoff Checklist. Pt transported in stable condition on 6L simple mask. Pt awake, alert upon arrival to PACU and oriented to new location. Pt appears calm and comfortable. Full report given to LEVELMAN and all questions answered prior to transfer of care 1217 Stop Meds Name Total fentaNYL 100 mcg IV Lidocaine 60 mg Propofol 200 mg Rocuronium 110 mg PHENYLephrine 320 mcg Ondansetron 8 mg Dexamethasone 4 mg Glycopyrrolate 1 mg ceFAZolin (Ancef) 2 g vial a ttach to sodium chloride 0.9% 100 mL Mini-Bag Plus 2 g PHENYLephrine INF 3,680 mcg dexmedeTOMIDine 32 mcg neostigmine 4 mg HYDROmorphone 0.8 mg lactated ringers infusion 600 mL lactated ringers 500 mL * Agents Name O2 O2 Auxiliary Flowmeter 2 * Blood No blood administrations on file. Lines, Drains, and Airways Type Details Placement Removal Urethral Catheter 11/08/23; 824; Urol ogic surgery; indwelling double lumen catheter; latex; 16; 1; 5; 10; drainage bag 11/08/23 08 by Carmelita Diaz RN Incision 11/08/23; 08; abdo men; laparoscopic punctures (specify); trocar sites 11/08/23 0833 by Carmelita Diaz RN PIV 11/08/23; 0708; 20 g auge, 1 in length; basilic vein (medial side of arm), left; distraction; 11/09/23; 1353 11/08/23 0708 by Idalia Mar RN 11/09/23 1353 by Jarad Lopez RN ETT Mask Ventilation: Doug perez (1); ETT Type: Cuffed, Oral; ETT Size: 7.5 mm; Mac Blade: 4; Exchange: Bougie; Notes: Asleep, Pre-O2, Stylette, Cricoid Pressure; Attempts: 2; Laryngoscopy Grade: 3; ETT Placement Verified By: Auscultation, Capnometry, Visual; Secured at Teeth: 22 cm; Inserted by: Felipe perez; Removal Date: 11/08/23; Removal Time: 1203 11/08/23 0759 by Francy Back COMMERCIAL CRABBER 11/08/23 1203 by Francy Back CRNA PIV 11/08/23; 0800; yisp-[id number]-[id number] catheter system; 18 gauge; cephalic vein (lateral side of arm), right; Anatomical Landmarks; Felipe perez; 11/09/23; 1353 11/08/23 0800 by Francy Back COMMERCIAL CRABBER 11/09/23 1353 by Jarad Lopez RN NG/OG Tube 11/08/23; 0800; orogastric; 16 Fr; 11/08/23; 1150 11/08/23 0800 by Francy Back COMMERCIAL CRABBER 11/08/23 1150 by Francy Back CRNA documented in this encounter Social History Tobacco Use Types Packs/Day Years Used Date Smoking Tobacco: Former Cigarettes Q uit: 1997 Smokeless Tobacco: Never Alcohol Use Standard Drinks/Week Comments Not Asked 0 (1 standard drink = 0.6 oz pur e alcohol) IPV Inpatient Questions Answer Date Recorded Does [...] on file documented as of this encounter OR Notes * Anesthesia Postprocedure Evaluation - Lashawn Wang MD - 11/18/2023 10:14 PM EDT Department of Anesthesiology Post-procedure Note Patient: Dylan Gilmore Procedure Summary Date: 11/08/23 Room / Location: [facility] MAIN OR Anesthesia Start: 744 Anesthesia Stop: 1216 Procedures: ROBOTIC LAPAROSCOPIC PROSTATECTOMY (WRVU 22.46) (Pelvis) ROBOTIC LAPAROSCOPY,WITH BILATERAL TOTAL PELVIC LYMPHADENECTOMY (WRVU 12) (Bilateral: Pelvis) MODIFIER ROBOT,DAVINCI XI Diagnosis: Malignant neoplasm of prostate (Prostate Cancer) Surgeons: Danny Wray MD Responsible Provider: Lashawn Wang MD Anesthesia Type: general ASA Status: 2 All Anesthesia Providers: Anesthesiologist: Lashawn Wang MD COMMERCIAL CRABBER: Francy Back CRNA Vitals Value Taken Time BP 100/61 11/08/23 1430 Temp 36.5 ??C (97.7 ??F) 11/08/23 1400 Pulse 69 11/08/23 1430 Resp 16 11/08/23 1430 SpO2 97 % 11/08/23 1430 Pain Level 5 11/08/23 1354 Patient Location: PACU/[facility] Level of Consciousness: Awake and Alert Pain Management: Satisfactory Analgesia PONV: None Cardiovascular Status: At Baseline and Hemodynamically Stable Respiratory Status: At Baseline and Room Air Postoperative Fluid Status: Intravascular EUvolemia Possible Anesthetic Complications: NONE apparent at time of evaluation Final Primary Anesthesia Type: General (The anesthetic type performed was the same as planned.) Comments: Lashawn Wang MD * Anesthesia Preprocedure Evaluation - Lashawn Wang MD - 11/07/2023 9:09 PM EDT Images from the original note were not included. Pre-Anesthesia Evaluation for: Dylan Gilmore a 73 y.o. male. Procedure(s): ROBOTIC LAPAROSCOPIC PROSTATECTOMY (WRVU 22.46) ROBOTIC LAPAROSCOPY,WITH BILATERAL TOTAL PELVIC LYMPHADENECTOMY (WRVU 12) MODIFIER ROBOT,SHARON NOVA Patient Active Problem List Diagnosis Date Noted ??? Malignant neoplasm of prostate 12/14/2022 Past Medical History: Diagnosis Date ??? Anxiety ??? Cancer ??? Chronic anxiety ??? Constipation ??? Hyperlipidemia ??? Prostate cancer Past Surgical History: Procedure Laterality Date ??? COLONOSCOPY ??? US GUIDED BIOPSY PROSTATE WITH URONAV FUSION Social History Tobacco Use ??? Smoking status: Former Types: Cigarettes Quit date: 1997 Years since quittin.3 ??? Smokeless tobacco: Never Substance Use Topics ??? Alcohol use: Not on file Social History Substance and Sexual Activity Drug Use Never Allergies Allergen Reactions ??? Tamsulosin Other Reaction(s): Low blood pressure ??? Omeprazole Magnesium CIS - SOB, wheezing ??? Trazodone H/a & agitation Medications: MAR and/or home medications have been reviewed. Physical Exam: Preprocedure Vitals Current as of 11/07/239 No BP, pulse, respiration, SpO2, or temperature recorded. Height: Weight: BMI: IBW: Airway Assessment: Mallampati: II TM distance: <3 FB Neck ROM: full Appears anterior Cardiovascular Assessment: Rhythm: regular Pulmonary Assessment: pulmonary exam normal Dental Assessment: - normal exam Comment: Front temporary caps Misc Assessment: Patient is wearing No contact(s). IV access: Peripheral line Last Filed Perioperative Cognitive Screening Value Time User AD8 Total Score: 1 10/25/2023 10:00 AM Hussein Echavarria, CHILO AD8 Informant: Patient 10/25/2023 10:00 AM Hussein Echavarria, RN CFS Frailty Score: 3 10/25/2023 10:00 AM Hussein Echavarria, RN Anesthesia Plan: ASA 2 general, with a(n) intravenous induction 73 yo 69kg M with prostate cancer presenting for robotic laparoscopic prostatectomy with Dr. Wray. PMH is notable for anxiety, HLD, constipation. Allergies to Tamsulosin, Omeprazole, Trazodone. Plan is GA/ETT with standard monitors and PIVx2. The patient was informed of the risks, benefits and alternatives of anesthesia. These risks included, but were not limited to, post-operative nausea and/or vomiting, pain, sore throat, dental/lip trauma, and other rare but serious complications such as major organ damage, awareness, severe allergicreactions, position-related nerve injuries, corneal abrasion/blindness and need blood transfusions.All questions were sought and answered. Consent was signed and placed in chart. Region - Other Informed Consent: Anesthetic plan and risks discussed with patient. Plan discussed with COMMERCIAL CRABBER. Anesthesia Screening documented in this encounter Plan of Treatment Upcoming Encounters Date Type Department Care Team (Late st Contact Info) Description 11/10/2022 11:59 PM EDT Anesthesia Event Main OR at [address] [address] Jojo Salvador, ESVIN [address] [place] [address] [place] [address] documented as of this encounter Visit Diagnoses Not on filedocumented in this encounter Administered Medications Inactive Administered Medications - up to 3 most recent administrations Medication Order MAR Action Action Date Dose Rate Site ceFAZolin (Ancef) 2 g vial attach to sodium chloride 0.9% 100 mL Mini-Bag Plus 2 g, Intravenous, EQUITY HOLDER TO O.R., 1 dose, On Mon11/08/23 at 0700, Administer over 30 Minutes, Day of Surgery (Day of Procedure), Indication for (Active or Suspected): Prophylaxis New Bag 11/08/2023 8:07 AM EDT 2 g dexAMETHasone (Decadron) injection Intravenous, PRN, Starting on Mon11/08/23 at 0810, Until Mon11/08/23 at 1217, Anesthesia Intra-op, Routine Given 11/08/2023 8:10 AM EDT 4 mg dexmedeTOMIDine (Precedex) (4 mcg/mL) bolus injection (Anesthsia) Intravenous, PRN, Starting on Mon11/08/23 at 0752, Until Mon11/08/23 at 1217, Anesthesia Intra-op, Routine Given 11/08/2023 11:36 AM EDT 4 mcg Given 11/08/2023 11:34 AM EDT 4 mcg Given 11/08/2023 10:28 AM EDT 4 mcg fentaNYL (pf) (50 mcg/mL) multi-dose injection Intravenous, PRN, Starting on Mon11/08/23 at 0834, Until Mon11/08/23 at 1217, Anesthesia Intra-op, Routine Given 11/08/2023 8:59 AM EDT 50 mcg Given 11/08/2023 8:34 AM EDT 50 mcg glycopyrrolate (Robinul) (0.2 mg/mL) multi-dose injection Intravenous, PRN, Starting on Mon11/08/23 at 0843, Until Mon11/08/23 at 1217, Anesthesia Intra-op, Routine Given 11/08/2023 11:35 AM EDT 0.8 mg Given 11/08/2023 8:43 AM EDT 0.2 mg HYDROmorphone (Dilaudid) (2 mg/mL) multi-dose injection solution Intravenous, PRN, Starting on Mon11/08/23 at 1142, Until Mon11/08/23 at 1217, Anesthesia Intra-op, Routine Given 11/08/2023 11:46 AM EDT 0.4 mg Given 11/08/2023 11:42 AM EDT 0.4 mg lactated ringers infusion 1,000 mL, at 100 mL/hr, Intravenous, CONTINUOUS, Starting on Mon11/08/23 at 0700, Until Mon11/08/23 at 1413, Day of Surgery (Day of Procedure) New Bag 11/08/2023 7:45 AM EDT lactated ringers infusion Intravenous, CONTINUOUS PRN, Starting on Mon11/08/23 at 0800, Until Mon11/08/23 at 1217, Anesthesia Intra-op New Bag 11/08/2023 8:00 AM EDT lidocaine (pf) (Xylocaine) (20 mg/mL) 2% injection syringe Intravenous, PRN, Starting on Mon11/08/23 at 0752, Until Mon11/08/23 at 1217, Anesthesia Intra-op, Routine Given 11/08/2023 7:52 AM EDT 60 mg neostigmine (Bloxiver) (1 mg/mL) injection Intravenous, PRN, Starting on Mon11/08/23 at 1135, Until Mon11/08/23 at 1217, Anesthesia Intra-op, Routine Given 11/08/2023 11:35 AM EDT 4 mg ondansetron (pf) (Zofran) (2 mg/mL) injection Intravenous, PRN, Starting on Mon11/08/23 at 0810, Until Mon11/08/23 at 1217, Anesthesia Intra-op, Routine Given 11/08/2023 11:23 AM EDT 4 mg Given 11/08/2023 8:10 AM EDT 4 mg PHENYLephrine (Jimmie-Synephrine) (80 mcg/mL) in sodium chloride 0.9% 250 mL infusion Intravenous, CONTINUOUS PRN, Starting on Mon11/08/23 at 0756, Until Mon11/08/23 at 1217, Anesthesia Intra-op, Routine Rate/Dose Change 11/08/2023 11:23 AM EDT 15 mcg/min 11.25 mL/hr Rate/Dose Change 11/08/2023 11:12 AM EDT 25 mcg/min 18.75 mL/hr Rate/Dose Change 11/08/2023 10:15 AM EDT 20 mcg/min 15 mL/ hr PHENYLephrine in NS (PF) (JIMMIE-SYNEPHRINE) 0.8 mg/10 mL (80 mcg/mL) multi-dose injection Syringe Intravenous, PRN, Starting on Mon11/08/23 at 0752, Until Mon11/08/23 at 1217, Anesthesia Intra-op, Routine Given 11/08/2023 9:21 AM EDT 80 mcg Given 11/08/2023 7:56 AM EDT 80 mcg Given 11/08/2023 7:52 AM EDT 160 mcg propofoL (Diprivan) 10 mg/mL bolus injection (Anesthesia) Intravenous, PRN, Starting on Mon11/08/23 at 0752, Until Mon11/08/23 at 1217, Anesthesia Intra-op Given 11/08/2023 7:54 AM EDT 50 mg Given 11/08/2023 7:52 AM EDT 150 mg rocuronium (Zemuron) (10 mg/mL) multi-dose injection Intravenous, PRN, Starting on Mon11/08/23 at 0752, Until Mon11/08/23 at 1217, Anesthesia Intra-op, Routine Given 11/08/2023 10:28 AM EDT 20 mg Given 11/08/2023 9:32 AM EDT 20 mg Given 11/08/2023 8:24 AM EDT 20 mg documented in this encounter Care Teams Boat Garnisher Relationship Specialty Start Date End Date Bryson Alba MD [address] [place] [address] PCP - General Family Medicine 02/14/19 documented as of this encounter
--- OUTSIDE RECORDS SUMMARY | 2024-05-16 16:42 | XMS_ITS | Encounter Summary ---
Author Organization [facility] [place] [address] Care Team Providers Care Waybill Clerk Name Role Phone Unavailable Primary Care Provider Unavailabl e Encounter Details Date Type Department Care Team (Late st Contact Info) Description 08/19/2009 Ancillary Procedure Radiology Library at [facility] [place] [address] Sarmad Arrington MD [address] [place], [place] [address] Social History Tobacco Use Types Packs/Day Years [...] PM EDT Anesthesia Event Main OR at [address] [phone] Jojo Salvador, ESVIN [address] [place] [address] [place] [address] documented as of this encounter Procedures Procedure Name Priority Date/Time Associated Diagnosis Comments FILM LIBRARY STORAGE ONLY CT ABDOMEN AND PELVIS Routine 08/19/2009 12:00 AM EST documented in this encounter Results * Film Library- Storage Only CT Abdomen & Pelvis (08/19/2009 12:00 AM EST) Narrative [facility] - 02/14/2019 12:27 PM EDT This exam is auto-finalizing. It's purpose is for storage only. Sarmad Arrington MD [facility] FILM LIBRARY ORD ERABLES Performing Organization Address City/State/[facility] Co de Phone Number TAO DELGADILLO [place], [place] documented in this encounter Visit Diagnoses Not on filedocumented in this encounter
--- OUTSIDE RECORDS SUMMARY | 2024-05-16 16:42 | XMS_ITS | Encounter Summary ---
Author Organization [facility] [place] [address] Care Team Providers Care Senior Analyst Name Role Phone Bryson Alba MD Primary Care Provider [phone] Encounter Details Date Type Department Care Team (Late st Contact Info) Description 01/12/2023 3:00 PM EDT Office Visit Radiation Oncology at [address] [address] Ayo Teran MD [address] [place] [address] DR RADIATION ONCOLOGY [place], [place] [id number] Malignant neoplasm of prostate Social History Tobacco [...] Sign Reading Time Taken Comments Blood Pressure 125/70 01/12/2023 2:57 PM EDT Pulse 63 01/12/2023 2:57 PM EDT Temperature 36.2 ??C (97.1 ??F) 01/12/2023 2:57 PM ED T Respiratory Rate 18 01/12/2023 2:57 PM EDT Oxygen Saturation 99% 01/12/2023 2:57 PM EDT Inhaled Oxygen Concentration - - Weight 68 kg (150 lb) 01/12/2023 2:57 PM EDT Height - - Body Mass Index 22.81 11/09/2022 10:24 AM EDT documented in this encounter Progress Notes * Ayo Teran MD - 01/12/2023 3:00 PM EDT Images from the original note were not included. Radiation Oncology Established Patient Follow Up Note Ayo Teran MD, MS [facility] PATIENT IDENTIFICATION: PATIENT NAME: Dylan Gilmore DATE OF : 1950 PRIMARY CARE PROVIDER: Bryson Alba MD DATE OF SERVICE: 01/12/2023 PATIENT SUMMARY: Dylan is a 72 y.o.M with favorable intermediate risk prostate cancer and severe LUTS previously seen in consultation. As we left the discussion at our last visit, he was considering vs surgery, and the various radiation therapy options including ADT/RT. We also planned for CT of the T spine given bone scan imaging findings. INTERVAL SUBJECTIVE HISTORY: Since last seen, Kevin reports feeling in his overall usual state of health. He met with Dr Wray who reviewed the role of surgery in treatment of prostate cancer, and if he did wish to pursue RT (or for the matter), TURP/PVP would likely be of benefit given his severe LUTS and large gland. He remains quite anxious and undecided regarding his decision making. He otherwise reports no change in his overall medical condition and is here today to further discuss the treatment plan for his prostate cancer. INTERVAL OBJECTIVE HISTORY: CT T spine 01/10/23 - DJD changes account for bone scan findings. PHYSICAL EXAM: BP 125/70 (Patient Position: Sitting) Pulse 63 Temp 36.2 ??C (97.1 ??F) Resp 18 Wt 68 kg (150 lb) SpO2 99% BMI 22.81 kg/m?? General: alert, appears stated age, and in no distress sitting in exam room alone TODAY'S PERFORMANCE STATUS: KPS Score ECOG Grade Definition XX 90-100 0 Fully active, able to carry on all pre-disease performance without restriction 70-80 1 Restricted in physically strenuous activity but ambulatory and able to carry out work of a light or sedentary nature, e.g., light house [...] to bed or chair ASSESSMENT / PLAN: 72M with FIR (Gl 3+4, PSA 5.2 on finasteride, cT1c) prostate cancer. Bone scan was concerning for possible T spine metastasis but CT confirms he has no evidence of metastatic disease. We discussed treatment options: - he is too anxious for this RALP - he is worried about risk of UI XRT - he does not wish to pursue this route because 'all his friends had surgery' If he were to proceed with XRT, we reviewed role of TURP/PVP beforehand given his LUTS and gland size at baseline. He had a lot of questions about surgery today, most of which I deferred to Bud Gonzales and Nils with whom he plans to followup. It seems he is leaning towards surgery so I will not schedule any followup at this time. I have confirmed that all of Kevin's questions were answered to his fullest satisfaction, and we have provided him with our contact information should any further questions or concerns arise. TIME ATTESTATION: I certify spending at least 40 minutes in providing care to this patient today, 01/12/23 as reflected by the following activities: - review of his medical record in the chart, including interpretation of imaging studies referencedabove - discussion of the above with the patient as part of shared medical decision making - documenting the outcome of today's visit as above AYO TERAN MD, MS documented in this encounter Plan of Treatment Upcoming Encounters Date Type Department Care Team (Late st Contact Info) Description 11/10/2022 11:59 PM EDT Anesthesia Event Main OR at [address] [phone] Jojo Salvador, ESVIN [address] [place] [address] [place] [address] documented as of this encounter Visit Diagnoses Diagnosis Malignant neoplasm of prostate documented in this encounter Care Teams Senior Analyst Relationship Specialty Start Date End Date Bryson Alba MD [address] [place] [address] PCP - General Family Medicine 02/14/19 documented as of this encounter
--- OUTSIDE RECORDS SUMMARY | 2024-05-16 16:42 | XMS_ITS | Encounter Summary ---
[place] [address] Care Team Providers Care Floor Assembler Name Role Phone Bryson Alba MD Primary Care Provider [phone] [phone] Encounter Details Date Type Department Care Team (Latest Contact Info) Description 09/01/2022 Travel Social History Tobacco Use Types Packs/Day [...] PM EDT Anesthesia Event Main OR at [address] [phone] Jojo Salvador, [address] [address] documented as of this encounter Visit Diagnoses Not on filedocumented in this encounter Care Teams Floor Assembler Relationship Specialty Start Date End Date Bryson Alba MD [address] [place] [address] PCP - General Family Medicine 02/14/19 documented as of this encounter
--- OUTSIDE RECORDS SUMMARY | 2024-05-16 16:42 | XMS_ITS | Encounter Summary ---
[place] [address] Care Team Providers Care Journalism Internship Name Role Phone Bryson Alba MD Primary Care Provider [phone] Encounter Details Date Type Department Care Team (Late st Contact Info) Description 10/25/2023 10:00 AM EDT TH Visit (TeleHealth) [place] [address] Social History Tobacco Use Types Packs/Day Years Used Date Smoking Tobacco: Former Cigarettes Q uit: 1997 Smokeless Tobacco: Never Tobacco Cessation:Counseling Given: Not Answered Alcohol Use Standard Drinks/Week Comments Not Asked 0 (1 standard drink = 0.6 oz pur e alcohol) [facility] Inpatient Questions Answer Date Recorded Does [...] as of this encounter Progress Notes * Hussein Echavarria, RN - 10/25/2023 10:00 AM EDT PAT questionnaire reviewed with patient over the phone and booklet mailed to him Patient verbalizesa good understanding of all information reviewed. Patient has had general anesthesia previously at another facility without a problem. Pre Surgery Covid screening patient response: No PLAN: Testing: )phone call) Procedure date: 11/07 Dagrosa documented in this encounter Plan of Treatment Upcoming Encounters Date Type Department Care Team (Late st Contact Info) Description 11/10/2022 11:59 PM EDT Anesthesia Event Main OR at [address] [phone] Jojo Salvador, [address] [place] [address] documented as of this encounter Visit Diagnoses Not on filedocumented in this encounter Care Teams Journalism Internship Relationship Specialty Start Date End Date Bryson Alba MD [address] [place] [address] PCP - General Family Medicine 02/14/19 documented as of this encounter
--- OUTSIDE RECORDS SUMMARY | 2024-05-16 16:42 | XMS_ITS | Encounter Summary ---
Author Organization [facility] [place] [address] Care Team Providers Care Quality Assurance Clerk Name Role Phone Bryson Alba MD Primary Care Provider +1 [phone] Encounter Details Date Type Department Care Team (Latest Contact Info) Description 12/14/2022 12:20 PM EDT Ancillary Procedure Radiology Library at [facility] [place] [id number] Ayo Teran MD [address] [place] [address] DR RADIATION ONCOLOGY [place], [place] [id number] Malignant neoplasm of prostate Social History Tobacco [...] EDT Anesthesia Event Main OR at [address] [address] Jojo Salvador [address] [place] [address] documented as of this encounter Procedures Procedure Name Priority Date/Time Associated Diagnosis Comments REQUEST FOR 2ND READ NUCLEAR MEDICINE Routine 12/14/2022 12:18 PM EDT Malignant neoplasm of prostate documented in this encounter Results * Request for 2nd [...] who have questions please contact the health manager respiratory care that requested your imaging first. ? Electronically signed by: Cornelius Mancini MD, [facility] ([phone]), at 12/15/2022 3:02 PM Narrative 12/15/2022 3:02 PM EDT EXAMINATION: REQUEST FOR 2ND READ NUCLEAR MEDICINE CLINICAL HISTORY: staging bone scan - is there really concern for metastatic disease at T7?; Sending Institution [facility]; Date of exam 20221209; I believe a reinterpretation of this exam may alter care of Patient. Yes TECHNIQUE: A bone scan performed at [facility] on December 09, 2022 is submitted for [...] concern formetastatic disease at T7?; Sending Institution [facility]; Date of exam 20221209; I believea reinterpretation of this exam may alter care of Patient. Yes TECHNIQUE: A bone scan performed at [facility] on 2022 is submitted for review. The scan consists of anterior posterior views ofthe entire skeleton, lateral views of the head, chest, abdomen and pelvis. COMPARISON: CT scan of the abdomen December 09, 2022 FINDINGS: Increased activity in the thoracic spine corresponds to either the [id number] body or the T7-T8 disc interspace. There [...] patients who have questions please contactthe health manager respiratory care that requested your imaging first. Electronically signed by: Cornelius Mancini MD, [facility]([phone]), at 12/15/2022 3:02 PM Ayo Teran MD IMG OUTSIDE [facility] TATION ORDERABLES documented in this encounter Visit Diagnoses Diagnosis Malignant neoplasm of prostate documented in this encounter Care Teams Quality Assurance Clerk Relationship Specialty Start Date End Date Bryson Alba MD [address] [place] [address] PCP - General Family Medicine 02/14/19 documented as of this encounter
--- OUTSIDE RECORDS SUMMARY | 2024-05-16 16:42 | XMS_ITS | Encounter Summary ---
Author Organization [facility] [place] [address] Care Team Providers Care Rn Community Name Role Phone Bryson Alba MD Primary Care Provider +1 [phone] Encounter Details Date Type Department Care Team (Latest Contact Info) Description 08/14/2023 Travel Social History Tobacco Use Types Packs/Day [...] EDT Anesthesia Event Main OR at [address] [address] Jojo Salvador, [address] [place] [address] documented as of this encounter Visit Diagnoses Not on filedocumented in this encounter Care Teams Rn Community Relationship Specialty Start Date End Date Bryson Alba MD [address] [place] [address] PCP - General Family Medicine 02/14/19 documented as of this encounter
--- OUTSIDE RECORDS SUMMARY | 2024-05-16 16:42 | XMS_ITS | Encounter Summary ---
Author Organization [facility] [place] [address] Care Team Providers Care Cat Scan Technologist Name Role Phone Bryson Alba MD Primary Care Provider [phone] [phone] Reason for Visit * Reason Onset Date Comments Follow-up 03/09/2023 Returning phone call Encounter Details Date Type Department Care Team (Late st Contact Info) Description 03/09/2023 Telephone Radiation Oncology at [address] [address] Jossie Izaguirre RN Follow-up (Returning phone call) Social History Tobacco Use Types Packs/Day Years [...] encounter Miscellaneous Notes * Telephone Encounter - Jossie Engle RN - 03/09/2023 3:31 PM EDT This nurse spoke with Kevin regarding the two lumps (see below). This nurse called back after receiving 's advice. Kevin stated he believes he has an appointment with his PCP in about a monthand will bring it up with them then. ----- Message from Ayo Teran MD sent at 03/09/2023 3:23 PM EDT ----- Regarding: RE: Growths on Stomach I do not have any specific advice. He should see his PCP about this. It is almost certainly not related to his prostate cancer. As FYI he has not has prostatectomy. NSK ----- Message ----- From: Jossie Engle RN Sent: 03/09/2023 3:18 PM EDT To: Ayo Teran MD, Gallo Colón MD Subject: FW: Growths on Stomach I spoke with Dylan to get a little more information. He states these two lumps have been in the right lower side of his abdomen for quite a few years but can't remember how long. He states they are not painful, red, or discolored. They are about the size of a quarter underneath the skin. He thinksthis is the same area that he had the operation for his prostatectomy years ago. He was last seen 01/[address] Teran but forgot to mention them and wants to make sure there wasn't anything he shouldbe doing about them. Can you please advise? Thanks, Jossie ----- Message ----- From: Leena Bean Sent: 03/09/2023 1:45 PM EDT To: [facility] Rad Onc Nurse Subject: Growths on Stomach Kevin was seen by Dr. Teran a few times and called in today because he has two lumps on his stomach on the right side. He has had them for a few years but didn't think to mention it until now. I asked him if he's touched base with his PCP and he said he has not in a few years. Can you please give him a call to discuss the best course of action? He was originally seen for prostate cancer. Please call back at [phone] documented in this encounter Plan of Treatment Upcoming Encounters Date Type Department Care Team (Late st Contact Info) Description 11/10/2022 11:59 PM EDT Anesthesia Event Main OR at [address] [phone] Jojo Salvador, [address] [place] [address] documented as of this encounter Visit Diagnoses Not on filedocumented in this encounter Care Teams Cat Scan Technologist Relationship Specialty Start Date End Date Bryson Alba MD [address] [place] [address] PCP - General Family Medicine 02/14/19 documented as of this encounter
--- OUTSIDE RECORDS SUMMARY | 2024-05-16 16:42 | XMS_ITS | Encounter Summary ---
[place] [address] Care Team Providers Care Transportation Officer Name Role Phone Bryson Alba MD Primary Care Provider [phone] [phone] Encounter Details Date Type Department Care Team (Late st Contact Info) Description 05/05/2023 [place] [address] Marga Hogan, RN Social History Tobacco Use Types Packs/Day [...] encounter Miscellaneous Notes * Telephone Encounter - Marga Hogan, RN - 05/05/2023 4:29 PM EDT Spoke to Dylan, he wonders when he should take valium prior to MRI. Let him know that 30-60 minutes should be good. Reminded him that he should arrange to have a tow bar driver. No additional questions at this time. Copied from [facility] #[id number]. Topic: Specialty Dept CRMs - Generic Call >> May 05, 2023 3:47 PM Dara Wade wrote: Specialist: Danny Wray Relationship (if other than patient-full name): self Reason for Call: Patient calling back regarding 05/04/23 telephone encounter. He is requesting callback to advise time frame for taking diazepam prior to 10/25/23 MRI. documented in this encounter Plan of Treatment Upcoming Encounters Date Type Department Care Team (Late st Contact Info) Description 11/10/2022 11:59 PM EDT Anesthesia Event Main OR at [address] [address] Jojo Salvador, [address] ANESTHESIOLOG[place] [address] documented as of this encounter Visit Diagnoses Not on filedocumented in this encounter Care Teams Transportation Officer Relationship Specialty Start Date End Date Bryson Alba MD [address] [place] [address] [address] [facility] [address] [place] [address] PCP - General Family Medicine 02/14/19 documented as of this encounter
--- OUTSIDE RECORDS SUMMARY | 2024-05-16 16:42 | XMS_ITS | Encounter Summary ---
[place] [address] Care Team Providers Care Certified Cytotechnologist Name Role Phone Bryson Alba MD Primary Care Provider +1 [phone] Encounter Details Date Type Department Care Team (Late st Contact Info) Description 09/22/2022 Telephone Main OR at [address] [address] Yni Rondon Social History Tobacco Use Types Packs/Day Years [...] EDT Anesthesia Event Main OR at [address] [address] Jojo Salvador, [address] [place] [address] documented as of this encounter Visit Diagnoses Not on filedocumented in this encounter Care Teams Certified Cytotechnologist Relationship Specialty Start Date End Date Bryson Alba MD [address] [place] [address] PCP - General Family Medicine 02/14/19 documented as of this encounter
--- OUTSIDE RECORDS SUMMARY | 2024-05-16 16:42 | XMS_ITS | Encounter Summary ---
Author Organization [facility] Address [facility] [place] [address] Care Team Providers Care Auto Salvage Worker Name Role Phone Bryson Alba MD Primary Care Provider +1 [phone] Reason for Visit * Consultation (Routine) - Closed Specialty Diagnoses / Procedures Referred By Anya stark Referred To Contact Urology Diagnoses Other obstructive and reflux uropathy Benign prostatic hyperplasia with lower urinary tract symptoms 02/06/22 - BPH/LUTS, OBSTRUCTIVE REFLUX UROPATHY Farooq Gonzales MD [address] [place] [address] Barney Goodman MD [facility] [address] [address] Referral ID Status Reason Start Date Expiration Date V isits Requested Visits Authorized [id number] Closed Consult, Test & Treat PCP Updated and/or Approved 01/11/2022 01/11/2023 6 6 Encounter Details Date Type Department Care Team (Late st Contact Info) Description 12/22/2022 3:40 PM EDT [place] [address] Danny Wray MD [facility] [address] [place] [address] BPH with obstruction/lower urinary tract symptoms; Malignant neoplasm of prostate Social History Tobacco [...] Sign Reading Time Taken Comments Blood Pressure 131/85 12/22/2022 3:40 PM EDT Pulse 61 12/22/2022 3:40 PM EDT Temperature - - Respiratory Rate - - Oxygen Saturation 100% 12/22/2022 3:40 PM EDT Inhaled Oxygen Concentration - - Weight - - Height - - Body Mass Index - - documented in this encounter Progress Notes * Danny Wray MD - 12/22/2022 3:40 PM EDT Images from the original note were not included. Patient Name: Dylan Gilmore Date of Service: 12/22/2022 Referring Provider: [place] [address] Primary Care Provider: Bryson Alba MD HPI: [...] Types: Cigarettes Quit date: 1997 Years since quittin.4 Smokeless tobacco: Never Vaping Use Vaping Use: Never used Substance Use Topics Drug use: Never Medications: Reviewed in EMR Allergies: Reviewed in EMR Systems review: View : No data to display. Physical Exam: Vital Signs are reviewed. The patient appears healthy and in no distress. Lab: Pertinent lab values are reviewed in the EMR and are per the HPI above. These were reviewed with the patient. Impression: #1: Intermediate risk prostate cancer ([place] 3+4, PSA 5.7 on finasteride, cT1c) #2: Severe LUTS #3: Large gland (>100cc) Plan: # Surgery (RALP / PLND) vs Radiation +TURP # Favor RALP given severity of symptoms and gland size but will discuss with Dr. Goodman / Jeffry I had a very lengthy and thorough discussion with Dylan Gilmore regarding the characteristics of his cancer and the risks, benefits, rationale, implications and alternatives of the various management options. We either discussed or I gave access via [facility] to the below counseling information We spent [...] to metastatic disease at 15 years but terminal worker data beyond this is not currently available. [...] any time with any questions or concerns. documented in this encounter Plan of Treatment Upcoming Encounters Date Type Department Care Team (Late st Contact Info) Description 11/10/2022 11:59 PM EDT Anesthesia Event Main OR at [address] [address] Jojo Salvador, [address] [place] [address] documented as of this encounter Visit Diagnoses Diagnosis BPH with obstruction/lower urinary tract symptoms Hypertrophy of prostate with urinary obstruction and other lower urinary tract symptoms (LUTS) Malignant neoplasm of prostate documented in this encounter Care Teams Auto Salvage Worker Relationship Specialty Start Date End Date Bryson Alba MD [address] [place] [address] PCP - General Family Medicine 02/14/19 documented as of this encounter
--- OUTSIDE RECORDS SUMMARY | 2024-05-16 16:42 | XMS_ITS | Encounter Summary ---
[facility] [place] [address] Care Team Providers Care Mold Polisher Name Role Phone Bryson Alba MD Primary Care Provider [phone] -[phone] Encounter Details Date Type Department Care Team (Late st Contact Info) Description 11/03/2023 [place] [phone] Joanna Vann HOSPITALITY MANAGER [facility] [address] [place] [address] Social History Tobacco Use Types Packs/Day Years [...] encounter Miscellaneous Notes * Telephone Encounter - Joanna Vann APRN - 11/03/2023 8:01 AM EDT Called [facility] for urine culture results. No growth They are faxing results now. Will scan into medical record when received. Letter sent to patient. documented in this encounter Plan of Treatment Upcoming Encounters Date Type Department Care Team (Late st Contact Info) Description 11/10/2022 11:59 PM EDT Anesthesia Event Main OR at [address] [address] Jojo Salvador, [address] [place] [address] documented as of this encounter Visit Diagnoses Not on filedocumented in this encounter Care Teams Mold Polisher Relationship Specialty Start Date End Date Bryson Alba MD [address] [facility] [address] [place] [address] PCP - General Family Medicine 02/14/19 documented as of this encounter
--- OUTSIDE RECORDS SUMMARY | 2024-05-16 16:42 | XMS_ITS | Encounter Summary ---
Author Organization [facility] [place] [address] Care Team Providers Care Dip Filler Name Role Phone Bryson Alba MD Primary Care Provider +1 [phone] Encounter Details Date Type Department Care Team (Late st Contact Info) Description 11/25/2022 Telephone Radiation Oncology at [address] [address] Leena Hastings Social History Tobacco Use Types Packs/Day Years [...] encounter Miscellaneous Notes * Telephone Encounter - Leena Bean - 11/25/2022 4:09 PM EDT Radiation Oncology New Patient Scheduling Note I called Dylan to inform him that Dr. Leary has referred him to see Dr. Teran for a radiation new patient consultation. I have confirmed his appointments on 12/15 will include a 30 minute visit at 1230 to see our clinic nurse, followed by a [address] Teran. I have requested that he arrive 15 minutes early in order to complete paperwork. I confirmed our address and answered all of his questions,and our contact information should any further questions or concerns arise. documented in this encounter Plan of Treatment Upcoming Encounters Date Type Department Care Team (Late st Contact Info) Description 11/10/2022 11:59 PM EDT Anesthesia Event Main OR at [address] [phone] Jojo Salvador, COUNSELOR AIDE [address] [place] [address] [place] [address] documented as of this encounter Visit Diagnoses Not on filedocumented in this encounter Care Teams Dip Filler Relationship Specialty Start Date End Date Bryson Alba MD [address] [facility] [facility] [address] [place] [address] PCP - General Family Medicine 02/14/19 documented as of this encounter
--- OUTSIDE RECORDS SUMMARY | 2024-05-16 16:42 | XMS_ITS | Encounter Summary ---
Author Organization [facility] [place] [address] Care Team Providers Care Paralegals Name Role Phone Bryson Alba MD Primary Care Provider +1 -[phone] Encounter Details Date Type Department Care Team (Late Contact Info) Description 01/10/2023 9:55 PM EDT Ancillary Procedure Radiology Library at [facility] [place] [phone] Ayo Teran MD [address] [place] [address] DR RADIATION ONCOLOGY [place], [place] [id number] Social History Tobacco Use Types Packs/Day Years [...] PM EDT Anesthesia Event Main OR at [address] [phone] Jojo Salvador, [address] [place] [address] documented as of this encounter Procedures Procedure Name Priority Date/Time Associated Diagnosis Comments FILM LIBRARY STORAGE ONLY CT SPINE Routine 01/10/2023 9:51 PM EDT documented in this encounter Results * Film Library- Storage Only CT Spine (01/10/2023 9:51 PM EDT) Narrative LEONA - 01/10/2023 9:51 PM EDT This exam is auto-finalizing. It's purpose is for storage only. Ayo Teran MD IMG FILM LIBRARY ORD ERABLES Performing Organization Address City/State/[facility] Co de Phone Number [place], [place] documented in this encounter Visit Diagnoses Not on filedocumented in this encounter Care Teams Paralegals Relationship Specialty Start Date End Date Bryson Alba MD [address] [place] [address] PCP - General Family Medicine 02/14/19 documented as of this encounter
--- OUTSIDE RECORDS SUMMARY | 2024-05-16 16:42 | XMS_ITS | Encounter Summary ---
Author Organization [facility] [place] [address] Care Team Providers Care Manager Express Name Role Phone Bryson Alba MD Primary Care Provider +1 [phone] Reason for Referral * Consultation (Routine) - Closed Specialty Diagnoses / Procedures Referred By Anya stark Referred To Contact Radiation Oncology Diagnoses Malignant neoplasm of prostate Lisa Leary APRN [address] [place] [address] Ayo Teran MD [address] [place] [address] [place] [address] Referral ID Status Reason Start Date Expiration Date V isits Requested Visits Authorized [id number] Closed Consult, Test & Treat PCP Updated and/or Approved 11/17/2022 11/17/2023 6 6 Encounter Details Date Type Department Care Team (Latest Contact Info) Description 11/17/2022 Transcribe Orders eDH Incoming Referrals [phone] Lisa Leary APRN [address] [place] [address] Malignant neoplasm of prostate Social [...] EDT Anesthesia Event Main OR at [address] [phone] Jojo Salvador, [address] [place] [address] Scheduled Referrals Name Type Priority Associated Diagnoses Order Schedule Referral to Hematology and Oncology Outpatient Referral Routine Malignant neoplasm of prostate Ordered: 11/17/2022 documented as of this encounter Visit Diagnoses Diagnosis Malignant neoplasm of prostate documented in this encounter Care Teams Manager Express Relationship Specialty Start Date End Date Bryson Alba MD [address] [place] [address] PCP - General Family Medicine 02/14/19 documented as of this encounter
--- OUTSIDE RECORDS SUMMARY | 2024-05-16 16:42 | XMS_ITS | Encounter Summary ---
Author Organization [facility] [place] [address] Care Team Providers Care Returned Goods Sorter Name Role Phone Bryson Alba MD Primary Care Provider [phone] [phone] Encounter Details Date Type Department Care Team (Late st Contact Info) Description 11/09/2022 9:45 AM EDT Telephone Pre Admission Testing at [address] [address] Social History Tobacco Use Types Packs/Day Years Used Date Smoking Tobacco: Former Cigarettes Q uit: 1997 Smokeless Tobacco: Never Tobacco Cessation:Counseling Given: Not Answered Alcohol Use Standard Drinks/Week Comments Not Currently 0 (1 standard drink = 0.6 oz pur e alcohol) Sex and Gender Information Value Date Recorded Sex Assigned at Not on file Gender Identity Not on file Sexual Orientation Not on file documented as of this encounter Last Filed Vital Signs Vital Sign Reading Time Taken Comments Blood Pressure - - Pulse - - Temperature - - Respiratory Rate - - Oxygen Saturation - - Inhaled Oxygen Concentration - - Weight 65.8 kg (145 lb) 11/09/2022 10:24 AM EDT Height 172.7 cm (5' 8) 11/09/2022 10:24 AM EDT Body Mass Index 22.05 11/09/2022 10:24 AM EDT documented in this encounter Progress Notes * Letty Crooks, RN - 11/09/2022 10:03 AM EDT EXPOSURE: Have you been in contact with anyone suspected of or confirmed to have COVID-19 in the PAST 10 DAYS? []Yes [x]No COVID-19 SCREENING: In the past 10 days, have you had any of the following symptoms: [] Fever (subjective or documented fever) [] Chills [] Cough [] Shortness of breath or difficulty breathing [] Fatigue [] Muscle or body aches [] Headache [] New loss of taste or smell [] Sore throat [] Nausea or vomiting [] Diarrhea [x]NONE OF THE ABOVE Tested positive for Covid (within the past 6 weeks): [] Yes [x] No OTHER SCREENING Fully Vaccinated with 3 boosters Anticipated Disposition from PACU: Same day overnight Transportation Plan To and From Hospital: Girlfriend/Latanya Current Living Situation and Caregiver Support (Name, Relationship and Level of Engagement): Lives alone Physical Home Barriers (number of stairs, one level living, use of ambulation aide(s), other concerns): none Patient perceived Barriers to Discharge: none Anticoagulation Plan: N/A [x] Patient reports unchanged d/c plan and services from previous office note [] Patient does have first outpatient therapy appointment scheduled within a week of surgery [] Patient does not have first outpatient therapy appointment scheduled within a week of surgery documented in this encounter Plan of Treatment Upcoming Encounters Date Type Department Care Team (Late st Contact Info) Description 11/10/2022 11:59 PM EDT Anesthesia Event Main OR at [address] [address] Jojo Salvador, [address] [place] [address] documented as of this encounter Visit Diagnoses Not on filedocumented in this encounter Care Teams Returned Goods Sorter Relationship Specialty Start Date End Date Bryson Alba MD [address] [place] [address] [address] PCP - General Family Medicine 02/14/19 documented as of this encounter
--- OUTSIDE RECORDS SUMMARY | 2024-05-16 16:42 | XMS_ITS | Encounter Summary ---
[facility] Organization [facility] [place] [address] Care Team Providers Care Lpn Per Diem Name Role Phone Bryson Alba MD Primary Care Provider [phone] Encounter Details Date Type Department Care Team (Late st Contact Info) Description 12/16/2022 4:30 PM EDT TH Visit (TeleHealth) Radiation Oncology at [address] [phone] Ayo Teran MD [address] [place] [address] RADIATION ONCOLOGY [place], [place] [id number] Malignant neoplasm of prostate Social History Tobacco [...] as of this encounter Progress Notes * Ayo Teran MD - 12/16/2022 4:30 PM EDT Radiation Oncology Telephone Visit ID Dylan Gilmore is a 72 y.o. with prostate cancer. I am calling him today to discuss additional questions. Interval Subjective History: No changes to report. Interval Objective History: No new imaging to review. Assessment/Plan: Kevin wanted to discuss whether further investigation into his T spine finding bone scans were necessary. I recommended 2nd read of the scan and will followup accordingly. Phone Encounter Attestation: I provided care to Mr. Garand, who verbally consented to this telephone visit and understands that this visit may be billed, similar to a clinic office visit. Time Attestation: I certify spending at least 20 minutes in providing care to this patient today, 12/23/22 as reflected by the following activities: - review of his medical record in the chart, including interpretation of imaging studies referencedabove - discussion of the above with the patient as part of shared medical decision making - documenting the outcome of today's visit as above documented in this encounter Plan of Treatment Upcoming Encounters Date Type Department Care Team (Late st Contact Info) Description 11/10/2022 11:59 PM EDT Anesthesia Event Main OR at [address] [phone] Jojo Salvador, [address] [place] [address] documented as of this encounter Visit Diagnoses Diagnosis Malignant neoplasm of prostate documented in this encounter Care Teams Lpn Per Diem Relationship Specialty Start Date End Date Bryson Alba MD [address] [place] [address] PCP - General Family Medicine 02/14/19 documented as of this encounter
--- OUTSIDE RECORDS SUMMARY | 2024-05-16 16:42 | XMS_ITS | Encounter Summary ---
Author Organization [facility] [place] [address] Care Team Providers Care Recording Engineer Name Role Phone Bryson Alba MD Primary Care Provider [phone] Encounter Details Date Type Department Care Team (Late st Contact Info) Description 08/14/2023 1:40 PM EST [place] [id number] Danny Wray MD [facility] [place] [address] Malignant neoplasm of prostate Social History Tobacco [...] Sign Reading Time Taken Comments Blood Pressure 120/84 08/14/2023 1:31 PM EST Pulse 69 08/14/2023 1:31 PM EST Temperature - - Respiratory Rate - - Oxygen Saturation 97% 08/14/2023 1:31 PM EST Inhaled Oxygen Concentration - - Weight 69.4 kg (153 lb) 08/14/2023 1:31 PM EST p t. reported Height 172.7 cm (5' 8) 08/14/2023 1:31 PM EST p t. reported Body Mass Index 23.26 08/14/2023 1:31 PM EST documented in this encounter Progress Notes * Danny Wray MD - 08/14/2023 1:40 PM EST Images from the original note were not included. Patient Name: Dylan Gilmore Date of Service: 08/14/2023 Referring Provider: No referring provider defined for this encounter. Primary Care Provider: Bryson Alba MD HPI: [...] Patient is currently not on any anticoagulation. Erections are good PSA History: 05/13/22 - 5.3 (while on finasteride) 01/2023 - 5.5 07/2023 - 5.7 Pathology Results / Location: TRUS bx 10/27/22 Gl 3+4 x 1 (<5% pattern 4) Gl 3+3 x 1 2 other cores with focal pattern 3 (<1%) and 4 (<5%) Pertinent Imaging Studies: TRUS 10/27/22 - 73cc gland No hypoechoic areas Bone scan 12/09/22 - Increased uptake @ T7 CT A/P 12/09/22 - No LAD Enlarged prostate 05/10/2023 - mpMRI reviewed independently and with the patient, this shows a P5 lesion in the left posterior PZ. 75cc gland. He is here to discuss treatment options. PMhx / PSHx reviewed: Family History: There is no family history of prostate cancer or other urologic malignancies that he knows of. Social History: Social History Tobacco Use Smoking status: Former Types: Cigarettes Quit date: 1997 Years since quittin.0 Smokeless tobacco: Never Vaping Use Vaping Use: Never used Substance Use Topics Drug use: Never Medications: Reviewed in EMR Allergies: Reviewed in EMR Physical Exam: Vital Signs are reviewed. The patient appears healthy and in no distress. Lab: Pertinent lab values are reviewed in the EMR and are per the HPI above. These were reviewed with the patient. Impression: #1: Intermediate risk prostate cancer ([place] 3+4, PSA 5.7 on finasteride, cT1c) #2: Severe LUTS #3: Large gland (>100cc) Plan: # Favor RALP given severity of symptoms # Surgery (RALP / PLND) vs Radiation +TURP, he is leaning towards surgery but would like this in the spring \ I had a very lengthy and thorough discussion with Dylan Gilmore regarding the characteristics of his cancer and the risks, benefits, rationale, implications and alternatives of the various management options. We either discussed this visit or previously or I gave access via [facility] to the below counseling information We [...] to metastatic disease at 15 years but detention data beyond this is not currently available. [...] PM EDT Anesthesia Event Main OR at [address] [phone] Jojo Salvador, [address] [place] [address] documented as of this encounter Visit Diagnoses Diagnosis Malignant neoplasm of prostate documented in this encounter Care Teams Recording Engineer Relationship Specialty Start Date End Date Bryson Alba MD [address] [place] [address] PCP - General Family Medicine 02/14/19 documented as of this encounter
--- OUTSIDE RECORDS SUMMARY | 2024-05-16 16:42 | XMS_ITS | Encounter Summary ---
Author Organization [facility] [place] [address] Care Team Providers Care Perch Machine Inspector Name Role Phone Bryson Alba MD Primary Care Provider [phone] Encounter Details Date Type Department Care Team (Latest Contact Info) Description 12/15/2022 Travel Social History Tobacco Use Types Packs/Day [...] EDT Anesthesia Event Main OR at [address] [phone] Jojo Salvador, [address] [place] [address] documented as of this encounter Visit Diagnoses Not on filedocumented in this encounter Care Teams Perch Machine Inspector Relationship Specialty Start Date End Date Bryson Alba MD [address] [place] [id number] PCP - General Family Medicine 02/14/19 documented as of this encounter
--- OUTSIDE RECORDS SUMMARY | 2024-05-16 16:42 | XMS_ITS | Encounter Summary ---
Author Organization [facility] [place] [address] Care Team Providers Care Flat Lock Machine Operator Name Role Phone Bryson Alba MD Primary Care Provider [phone] Encounter Details Date Type Department Care Team (Late Contact Info) Description 12/16/2022 Orders Only Radiation Oncology at [address] [phone] Ayo Teran MD [address] [place] [address] DR RADIATION ONCOLOGY [place], [place] [id number] Malignant neoplasm of prostate Social History Tobacco [...] EDT Anesthesia Event Main OR at [address] [phone] Jojo Salvador, [address] [place] [address] documented as of this encounter Visit Diagnoses Diagnosis Malignant neoplasm of prostate documented in this encounter Care Teams Flat Lock Machine Operator Relationship Specialty Start Date End Date Bryson Alba MD [address] [place] [address] [address] [place] [address] PCP - General Family Medicine 02/14/19 documented as of this encounter
--- OUTSIDE RECORDS SUMMARY | 2024-05-16 16:42 | XMS_ITS | Encounter Summary ---
Author Organization [facility] [address] Care Team Providers Care Child Advocate Name Role Phone Bryson Alba MD Primary Care Provider [phone] Encounter Details Date Type Department Care Team (Latest Contact Info) Description 12/22/2022 Travel Social History Tobacco Use Types Packs/Day [...] EDT Anesthesia Event Main OR at [address] [phone] Jojo Salvador, [address] [place] [address] documented as of this encounter Visit Diagnoses Not on filedocumented in this encounter Care Teams Child Advocate Relationship Specialty Start Date End Date Bryson Alba MD [address] [place] [id number] PCP - General Family Medicine 02/14/19 documented as of this encounter
--- OUTSIDE RECORDS SUMMARY | 2024-05-16 16:42 | XMS_ITS | Encounter Summary ---
Author Organization [facility] [place] [address] Care Team Providers Care Ocean Export Coordinator Name Role Phone Bryson Alba MD Primary Care Provider [phone] Encounter Details Date Type Department Care Team (Late st Contact Info) Description 09/01/2023 Orders [place] [address] Danny Wray MD [facility] [place] [address] Lower urinary tract symptoms (LUTS) Social History Tobacco Use Types Packs/Day Years [...] PM EDT Anesthesia Event Main OR at [address] [phone] Jojo Salvador CRNA [address] [place] [address] [place] [address] Scheduled Orders Name Type Priority Associated Diagnoses Orde r Schedule Urine culture Clean Catch Urine Microbiology Routine Lower urinary tract symptoms (LUTS) Expected: 09/01/2023, Expires: 09/01/2024 documented as of this encounter Visit Diagnoses Diagnosis Lower urinary tract symptoms (LUTS) Other symptoms involving urinary system documented in this encounter Care Teams Ocean Export Coordinator Relationship Specialty Start Date End Date Bryson Alba MD [address] [place] [address] PCP - General Family Medicine 02/14/19 documented as of this encounter
[2024-05-16 16:50] LABS: ALT 20 U/L (16-63); AST 17 U/L (15-37); Albumin 3.7 g/dL (3.4-5.0); Alkaline Phosphatase 68 U/L (46-116); BUN 20 mg/dL (7-18); Bilirubin, Total 0.53 mg/dL (0.2-1.0); CREATININE 1.1 mg/dL (0.70-1.30); Calcium 9.5 mg/dL (8.5-10.1); Chloride 105 mmol/L (98-107); Estimated GFR 70.88 (mL/min/1.73m2); Glucose 92 mg/dL (74-106); Potassium 4.3 mmol/L (3.5-5.1); Sodium 142 mmol/L (136-145); TSH 1.52 uIU/mL (0.36-3.74); Total Protein 7.7 g/dL (6.4-8.2)
== END 2024-05-16 16:35 | disposition home or self-care (01) ==
LOC: LBO 16:40
PROVIDERS: PCP Family Medicine; Visit Provider Urology
DX: G47.00 Insomnia, unspecified (principal); C61 Malignant neoplasm of prostate; R39.9 Unspecified symptoms and signs involving the genitourinary system
CPT/HCPCS: 36415; 80053; 99215; 84443; 85025

== ENCOUNTER 2024-08-06 02:25 | Outpatient (CLI) | payer MEDICARE, SELFPAY ==
[2024-08-06 18:21] LABS: PSA, Diagnostic <0.1 ng/mL (<=6.5)
== END 2024-08-06 02:26 | disposition home or self-care (01) ==
PROVIDERS: PCP Family Medicine; Visit Provider Urology
DX: C61 Malignant neoplasm of prostate (principal)
CPT/HCPCS: 36415; 84153

== ENCOUNTER → 2024-08-13 10:53 | Outpatient (BNVA) | payer MEDICARE, SELFPAY | PROVIDERS: PCP Family Medicine; Visit Provider Urology | DX: C61 Malignant neoplasm of prostate (principal) | CPT/HCPCS: 99214 ==

== ENCOUNTER 2024-08-19 00:48 | Outpatient (CLI) | payer MEDICARE, SELFPAY ==
--- NOTE | 2024-08-19 | DI.RAD_ITS ---
Exam(s) XR ABDOMEN FLAT PLATE EXAM: 2D digital imaging was performed. CLINICAL HISTORY: CONSTIPATION,L59.00,CHANGE IN BOWEL HABITS,R19.4. COMPARISON: CT CT ABDOMEN PELVIS W from 12/09/2022 TECHNIQUE: Supine views of the abdomen performed. FINDINGS: BOWEL GAS PATTERN: Nondistended. Moderate quantity of stool CALCIFICATIONS: There is a rounded calcification projecting at the lower pole the kidney. OSSEOUS STRUCTURES: Unremarkable for age. OTHER FINDINGS: The lung bases are clear. The heart size is normal. IMPRESSION: 1. Nonobstructive bowel gas pattern. Moderate quantity of stool. 2. Left nephrolithiasis. DATA REPOSITORY: RADIATION DOSE DELIVERED:
== END 2024-08-19 01:08 ==
LOC: DI 00:48
PROVIDERS: PCP Family Medicine; Visit Provider Internal Medicine Gastroenterology
DX: N20.0 Calculus of kidney (principal)
CPT/HCPCS: 74018

== ENCOUNTER 2024-10-04 00:09 | Outpatient (CLI) | payer MEDICARE, SELFPAY ==
--- NOTE | 2024-10-04 12:38 | DI.RAD_ITS ---
Exam(s) XR ABDOMEN FLAT PLATE EXAM: 2D digital imaging was performed. CLINICAL HISTORY: Constipation, K59.00; change in bowel habits, R19.4. COMPARISON: CR XR ABDOMEN FLAT PLATE from 08/19/2024 TECHNIQUE: Supine views of the abdomen performed. FINDINGS: BOWEL GAS PATTERN: The stomach and small bowel are nondistended. Moderate to large quantity of sto ol is noted, greater on the right side. CALCIFICATIONS: 5 millimeter calculus at the lower pole of the left kidney is again noted. OSSEOUS STRUCTURES: Unremarkable for age. OTHER FINDINGS: Lung bases are clear. Heart size is normal. IMPRESSION: 1. Nonobstructive bowel gas pattern. Moderate to increased quantity of stool. 2. Calculus lower pole left kidney. DATA REPOSITORY: RADIATION DOSE DELIVERED:
== END 2024-10-04 00:29 ==
LOC: DI 00:09
PROVIDERS: PCP Family Medicine; Visit Provider Internal Medicine Gastroenterology
DX: K59.00 Constipation, unspecified (principal); N20.0 Calculus of kidney
CPT/HCPCS: 74018

== ENCOUNTER → 2024-10-10 14:52 | Outpatient (BNVA) | payer MEDICARE, SELFPAY | PROVIDERS: PCP Family Medicine; Referring Provider Family Medicine; Visit Provider Urology | DX: Z85.46 Personal history of malignant neoplasm of prostate (principal); Z90.79 Acquired absence of other genital organ(s); R35.0 Frequency of micturition; K59.89 Other specified functional intestinal disorders | CPT/HCPCS: 99215 ==

== ENCOUNTER 2024-11-05 03:39 | Outpatient (CLI) | payer MEDICARE, SELFPAY ==
[2024-11-05 18:00] LABS: PSA, Diagnostic <0.1 ng/mL (<=6.5)
== END 2024-11-05 03:40 | disposition home or self-care (01) ==
LOC: LBO 03:39
PROVIDERS: PCP Family Medicine; Visit Provider Urology
DX: C61 Malignant neoplasm of prostate (principal)
CPT/HCPCS: 36415; 84153

== ENCOUNTER → 2024-11-12 10:52 | Outpatient (BNVA) | payer MEDICARE, SELFPAY | PROVIDERS: PCP Family Medicine; Referring Provider Family Medicine; Visit Provider Urology | DX: C61 Malignant neoplasm of prostate (principal) | CPT/HCPCS: 99214 ==

== ENCOUNTER 2025-02-04 03:08 | Outpatient (CLI) | payer MEDICARE, SELFPAY ==
[2025-02-04 18:52] LABS: PSA, Diagnostic <0.1 ng/mL (<=6.5)
== END 2025-02-04 03:09 | disposition home or self-care (01) ==
LOC: LBO 03:08
PROVIDERS: PCP Family Medicine; Visit Provider Urology
DX: C61 Malignant neoplasm of prostate (principal)
CPT/HCPCS: 36415; 84153

== ENCOUNTER → 2025-02-11 08:49 | Outpatient (BNVA) | payer MEDICARE, SELFPAY | PROVIDERS: PCP Family Medicine; Referring Provider Family Medicine; Visit Provider Urology | DX: C61 Malignant neoplasm of prostate (principal); R35.0 Frequency of micturition; R35.1 Nocturia | CPT/HCPCS: 99215 ==

== ENCOUNTER 2025-05-02 04:10 | Outpatient (CLI) | payer MEDICARE, SELFPAY | END 2025-05-02 04:11 | disposition home or self-care (01) | LOC: LBO 04:10 | PROVIDERS: PCP Family Medicine; Visit Provider Urology | DX: C61 Malignant neoplasm of prostate (principal) | CPT/HCPCS: 36415; 84153 ==

== ENCOUNTER → 2025-05-12 13:52 | Outpatient (BNVA) | payer MEDICARE, SELFPAY | PROVIDERS: PCP Family Medicine; Referring Provider Family Medicine; Visit Provider Urology | DX: N30.10 Interstitial cystitis (chronic) without hematuria (principal); C61 Malignant neoplasm of prostate | CPT/HCPCS: 99214 ==

== ENCOUNTER 2025-05-15 03:31 | Outpatient (CLI) | payer MEDICARE, SELFPAY ==
[2025-05-21 16:38] LABS: Apolipoprotein B, Serum 135 mg/dL; Beta VLDL Cholesterol Not Detected mg/dL (<15); Beta VLDL Triglycerides Not Detected mg/dL (<15); Cholesterol, Total, CDC 239 mg/dL; Chylomicron Cholesterol Not Detected; Chylomicron Triglycerides Not Detected; HDL Cholesterol, CDC 35 mg/dL (>=40); LpX Not detected; Triglycerides, CDC 160 mg/dL; VLDL Triglycerides 93 mg/dL (<120)
== END 2025-05-15 03:32 | disposition home or self-care (01) ==
LOC: LBO 03:31
PROVIDERS: PCP Family Medicine; Visit Provider Family Medicine
DX: E78.5 Hyperlipidemia, unspecified (principal)
CPT/HCPCS: 36415; 80061; 83695; 82172; 82664

== ENCOUNTER → 2025-06-17 12:54 | Outpatient (BNVA) | payer MEDICARE, SELFPAY | PROVIDERS: PCP Family Medicine; Referring Provider Family Medicine; Visit Provider Urology | DX: R35.0 Frequency of micturition (principal); R35.1 Nocturia | CPT/HCPCS: 81002; 52000 ==